=== PATIENT | female | born 1940 | race Caucasian/White ===

== ENCOUNTER → 2018-09-12 09:27 | Outpatient (CLI) | payer MEDICARE, OTHER, SELFPAY ==
[2018-09-12 10:19] LABS: Hemoglobin 14.8 g/dL (12.0-16.0); Mean Corpuscular HGB Conc 34.4 % (30-36); Mean Corpuscular Hemoglobin 30.3 PG (26-34); Mean Corpuscular Volume 88.2 fL (80-100); Platelet Count 275 X10^3/uL (150-400); Red Blood Cell Count 4.88 X10^6/uL (4.0-5.2); Red Cell Distribution Width 13.1 % (11.6-14.8); White Blood Cell Count 5.9 X10^3/uL (4.5-11.0)
== END ==
PROVIDERS: PCP Nurse Practitioner Family; Visit Provider Nurse Practitioner Family
DX: E78.5 Hyperlipidemia, unspecified (principal)
CPT/HCPCS: 36415; 85027

== ENCOUNTER → 2019-01-12 09:37 | Outpatient (CLI) | payer MEDICARE, OTHER, SELFPAY ==
--- NOTE | 2019-01-12 | DI.MG.S_ITS ---
BILATERAL DIGITAL SCREENING MAMMOGRAM 3D/2D WITH CAD POST LUMPECTOMY: 01/12/2019 CLINICAL: Routine screening. Personal history of left breast cancer. Family history of breast cancer. Comparison is made to exams dated: 01/05/2018 mammogram, 12/29/2016 mammogram, and 12/24/2015 mammogram - [facility]. The tissue of both breasts is heterogeneously dense. This may lower the sensitivity of mammography. Current study was also evaluated with a Computer Aided Detection (CAD) system. There are benign post operative findings in the left breast. There are developing multiple calcifications in the right breast superior lateral quadrant middle depth. No other significant masses, calcifications, or other findings are seen in either breast. IMPRESSION: INCOMPLETE: NEEDS ADDITIONAL IMAGING EVALUATION The developing multiple calcifications in the right breast are indeterminate. Further evaluation with right breast spot magnification mammographic views and possible ultrasound is recommended. This exam was interpreted at Station ID: [id number]. NOTE: For mammograms, a report in lay terms will be sent to the patient. Approximately 15% of breast malignancies will not be visualized mammographically. In the management of a palpable breast mass, a negative mammogram must not discourage biopsy of a clinically suspicious lesion. Electronically Signed By: Bee rivas/:01/13/2019 15:41:23 letter sent: Additional Imaging Needed ACR BI-RADS Category 0: Incomplete 3340F
[2019-01-12 10:31] LABS: Alanine Aminotransferase 27 IU/L (9-52); Albumin 4.1 g/dL (3.5-5.0); Albumin Globulin Ratio 1.6 (1.0-2.8); Alkaline Phosphatase 61 U/L (38-126); Aspartate Aminotransferase 20 IU/L (14-36); BUN Creatinine Ratio 27.1 (6-22); Bilirubin Total 0.4 mg/dL (0.2-1.3); Blood Urea Nitrogen 19 mg/dL (7-17); Calcium 8.9 mg/dL (8.4-10.2); Carbon Dioxide 28 mmol/L (22-32); Chloride 102 mmol/L (98-107); Cholesterol 238 mg/dL (140-199); Estimated Glomerular Filt Rate > 60.0 mL/min (>60); Globulin 2.6 g/dL (1.7-4.1); Glucose 95 mg/dL (80-110); HDL Cholesterol 63 mg/dL (40-60); HEMOLYSIS < 15 (0-50); LDL Cholesterol Calculated 156 mg/dL (<100); Sodium 138 mmol/L (137-145); Total Protein 6.7 g/dL (6.3-8.2); Triglycerides 95 mg/dL (35-150)
== END ==
PROVIDERS: Family Provider Nurse Practitioner Family; PCP Nurse Practitioner Family; Visit Provider Nurse Practitioner Family
DX: Z12.31 Encounter for screening mammogram for malignant neoplasm of breast (principal); Z85.3 Personal history of malignant neoplasm of breast; Z80.3 Family history of malignant neoplasm of breast; E78.5 Hyperlipidemia, unspecified
CPT/HCPCS: 36415; 77063; 77067; 80053; 80061

== ENCOUNTER → 2019-02-02 13:54 | Outpatient (CLI) | payer MEDICARE, OTHER, SELFPAY ==
--- NOTE | 2019-02-02 | DI.MG.S_ITS ---
UNILATERAL RIGHT DIGITAL DIAGNOSTIC MAMMOGRAM 3D/2D WITH ADDITIONAL VIEWS: 02/02/2019 CLINICAL: Additional evaluation requested from prior study. Personal history of breast cancer. Family history of breast cancer. Comparison is made to exams dated: 01/12/2019 mammogram, 01/05/2018 mammogram, 12/29/2016 mammogram, 12/24/2015 mammogram, and 12/17/2014 mammogram - [facility]. The tissue of right breast is heterogeneously dense. This may lower the sensitivity of mammography. There is a 1 cm cluster of grouped fine amorphous punctate calcifications in the right breast at 12 o'clock anterior depth. These are more prominent than on previous studies, and morphology is indeterminate. No other significant masses or calcifications are seen in the breast. IMPRESSION: INCOMPLETE: NEEDS ADDITIONAL IMAGING EVALUATION The cluster of 1 cm grouped fine amorphous punctate calcifications in the right breast are at an intermediate suspicion for malignancy given development over prior studies. A stereotactic biopsy is recommended. Ultrasound was performed to evaluate for any underlying mass. This exam was interpreted at Station ID: [id number]. NOTE: For mammograms, a report in lay terms will be sent to the patient. Approximately 15% of breast malignancies will not be visualized mammographically. In the management of a palpable breast mass, a negative mammogram must not discourage biopsy of a clinically suspicious lesion. Electronically Signed By: Bee rivas/:02/02/2019 18:05:21 ACR BI-RADS Category 0: Incomplete 3340F
--- NOTE | 2019-02-02 | DI.US.S_ITS ---
LIMITED ULTRASOUND OF RIGHT BREAST: 02/02/2019 CLINICAL: Patient returns today to evaluate a density in the right breast. Comparison is made to exams dated: 02/02/2019 mammogram, 01/12/2019 mammogram, 01/05/2018 mammogram, 12/29/2016 mammogram, 12/24/2015 mammogram, and 12/17/2014 mammogram - [facility]. Ultrasound of the right breast 12 o'clock region in area of calcifications was performed. No abnormalities were seen sonographically in the right breast. IMPRESSION: SUSPICIOUS OF MALIGNANCY No sonographic findings of malignancy underlying moderately suspicious right breast calcifications. Stereotactic biopsy of calcifications is recommended given development over time, increased prominence, and patient's personal history of contralateral cancer. Findings and recommendations were discussed with the patient by telephone. This exam was interpreted at Station ID: [id number]. Electronically Signed By: Bee rivas/:02/02/2019 18:08:51 letter sent: Biopsy Required Ultrasound BI-RADS: 4b Suspicious abnormality - intermediate suspicion of malignancy
== END ==
PROVIDERS: Family Provider Nurse Practitioner Family; PCP Nurse Practitioner Family; Visit Provider Nurse Practitioner Family
DX: R92.1 Mammographic calcification found on diagnostic imaging of breast (principal); Z85.3 Personal history of malignant neoplasm of breast; Z80.3 Family history of malignant neoplasm of breast
CPT/HCPCS: 76642; 77065; G0279

== ENCOUNTER → 2019-12-11 07:58 | Outpatient (CLI) | payer MEDICARE, OTHER, SELFPAY ==
--- NOTE | 2019-12-11 | DI.US.S_ITS ---
LIMITED ULTRASOUND OF LEFT BREAST: 12/11/2019 CLINICAL: Palpable left breast lump. Additional evaluation requested from prior study. Comparison is made to exams dated: 12/11/2019 mammogram, 01/12/2019 mammogram, 01/05/2018 mammogram, 12/29/2016 mammogram, and 12/24/2015 mammogram - [facility]. Color flow ultrasound of the left breast four quadrants was performed. Goode scale images of the real-time examination were reviewed. Targeted ultrasound was performed in the region of the patient's reported focal palpable concern of the superior left breast, including 12:00 position. There is heterogenously echoic extensive scarring of the superior left breast with no internal vascularity on Doppler ultrasound. There is minimal adjacent vascularity on Doppler ultrasound in the superior left breast. There is a 1.5 x 1.1 x 0.9 cm round heterogenously hypoechoic mass with indistinct margin in the left breast at 8:00 position 4 cm from the nipple which demonstrates no vascularity on Doppler ultrasound. These findings appear to correlate with mammography. IMPRESSION: PROBABLY BENIGN Extensive scarring of the superior left breast, with a 1.5 x 1.1 x 0.9 cm round heterogenously hypoechoic avascular mass in the left breast at 8:00 position 4 cm from the nipple which in conjunction with mammographic findings is most suggestive of evolving fat necrosis. A follow-up diagnostic mammogram and targeted left breast ultrasound in 6 months is recommended to demonstrate stability of findings and exclude an underlying recurrent or new malignancy. The patient is advised to monitor her breasts and to return sooner for re-evaluation should she feel anything grow or change. This exam was interpreted at Station ID: [id number]. Electronically Signed By: Terrell Sanchez M.D. ecl/:12/11/2019 10:59:00 letter sent: Followup Recommended Ultrasound BI-RADS: 3 Probably benign
--- NOTE | 2019-12-11 | DI.MG.S_ITS ---
BILATERAL DIGITAL DIAGNOSTIC MAMMOGRAM 3D/2D POST LUMPECTOMY: 12/11/2019 CLINICAL: History of left breast cancer in 1998. Now having new thickening and hardening of the left breast. History of stereotactic biopsy of the right breast which was reportedly biopsied as benign per patient. Comparison is made to exams dated: 02/02/2019 mammogram, 01/12/2019 mammogram, and 01/05/2018 mammogram - [facility]. The tissue of both breasts is heterogeneously dense. This may lower the sensitivity of mammography. There is a triangular marker overlying the superior left breast at the site of patient's focal palpable concern (described as new thickening and hardening of the left breast), adjacent a linear scar marker overlying the superior left breast. There are postsurgical changes and extensive scarring within the superior left breast. There is a focal asymmetry of the lateral right breast at posterior depth seen on the RCC view that is less prominent and more consistent with dense fibroglandular tissues on spot compression views. There is a biopsy clip in the superior lateral right breast. No other significant masses, calcifications, or other findings are seen in either breast. IMPRESSION: INCOMPLETE: NEEDS ADDITIONAL IMAGING EVALUATION 1) There is a triangular marker overlying the superior left breast at the site of patient's focal palpable concern (described as new thickening and hardening of the left breast), adjacent a linear scar marker overlying the superior left breast. There are postsurgical changes and extensive scarring within the superior left breast. A targeted ultrasound is recommended for further evaluation. 2) There is a focal asymmetry of the lateral right breast at posterior depth seen on the RCC view that is less prominent and more consistent with dense fibroglandular tissues on spot compression views. A targeted ultrasound is recommended for further evaluation. This exam was interpreted at Station ID: [id number]. NOTE: For mammograms, a report in lay terms will be sent to the patient. Approximately 15% of breast malignancies will not be visualized mammographically. In the management of a palpable breast mass, a negative mammogram must not discourage biopsy of a clinically suspicious lesion. Electronically Signed By: Terrell Sanchez M.D. ecl/:12/11/2019 10:23:51 ACR BI-RADS Category 0: Incomplete 3340F
--- NOTE | 2019-12-11 | DI.US.S_ITS ---
LIMITED ULTRASOUND OF RIGHT BREAST AND AXILLA: 12/11/2019 CLINICAL: Additional evaluation requested from prior study. Comparison is made to exams dated: 12/11/2019 mammogram, 02/02/2019 ultrasound, 02/02/2019 mammogram, 01/12/2019 mammogram, 01/05/2018 mammogram, and 12/29/2016 mammogram - [facility]. Color flow ultrasound of the right breast 7-11 o'clock, and axilla regions was performed. Goode scale images of the real-time examination were reviewed. There is a 1.3 x 0.9 x 0.7 cm irregular hypoechoic mass with indistinct and angular margins in the right breast at 10:00 position 3-4 cm from the nipple. This demonstrates internal vascularity on Doppler ultrasound. This appears to correlate with the asymmetry of the lateral right breast seen on comparison diagnostic mammography. Targeted ultrasound of the right axilla demonstrates no ultrasound evidence of right axillary lymphadenopathy. IMPRESSION: SUSPICIOUS OF MALIGNANCY 1) 1.3 x 0.9 x 0.7 cm irregular hypoechoic mass with indistinct and angular margins in the right breast at 10:00 position 3-4 cm from the nipple. This is suspicious for possible malignancy and an ultrasound guided biopsy is recommended. 2) No ultrasound evidence of right axillary lymphadenopathy. These results and recommendations were discussed with the patient at the time of the exam by the [facility] Radiologist Dr. Michel Munoz in person. This exam was interpreted at Station ID: [id number]. Electronically Signed By: Terrell Sanchez M.D. ecl/:12/11/2019 11:09:44 letter sent: Biopsy Required Ultrasound BI-RADS: 4 Suspicious for malignancy
== END ==
PROVIDERS: PCP Internal Medicine; Visit Provider Internal Medicine
DX: R92.8 Other abnormal and inconclusive findings on diagnostic imaging of breast (principal); N63.14 Unspecified lump in the right breast, lower inner quadrant; N63.11 Unspecified lump in the right breast, upper outer quadrant; L90.5 Scar conditions and fibrosis of skin; Z85.3 Personal history of malignant neoplasm of breast
CPT/HCPCS: 76642; 77066; G0279

== ENCOUNTER → 2020-04-19 08:37 | Outpatient (CLI) | payer MEDICARE, OTHER, SELFPAY ==
[2020-04-19 11:07] LABS: Alanine Aminotransferase 16 IU/L (<35); Albumin 3.9 g/dL (3.5-5.0); Albumin Globulin Ratio 1.3 (1.0-2.8); Alkaline Phosphatase 61 U/L (38-126); Aspartate Aminotransferase 23 IU/L (14-36); BUN Creatinine Ratio 25.3 (6-22); Bilirubin Total 0.5 mg/dL (0.2-1.3); Blood Urea Nitrogen 20 mg/dL (7-17); Calcium 9.2 mg/dL (8.4-10.2); Carbon Dioxide 25 mmol/L (22-32); Chloride 106 mmol/L (98-107); Cholesterol 265 mg/dL (140-199); Estimated Glomerular Filt Rate > 60.0 mL/min (>60); Glucose 102 mg/dL (80-110); HDL Cholesterol 63 mg/dL (40-60); HEMOLYSIS < 15 (0-50); LDL Cholesterol Calculated 188 mg/dL (<100); Potassium 4.3 mmol/L (3.4-5.1); Sodium 138 mmol/L (137-145); Total Protein 6.9 g/dL (6.3-8.2); Triglycerides 71 mg/dL (35-150)
== END ==
PROVIDERS: PCP Internal Medicine; Referring Provider Internal Medicine; Visit Provider Internal Medicine
DX: E78.5 Hyperlipidemia, unspecified (principal)
CPT/HCPCS: 36415; 80053; 80061

== ENCOUNTER → 2020-04-24 10:37 | Outpatient (CLI) | payer MEDICARE, OTHER, SELFPAY ==
--- NOTE | 2020-04-24 | DI.US.S_ITS ---
PROCEDURE: US ABDOMEN COMPLETE INDICATIONS: 14 mm LIVER MASS FOUND ON BREAST MRI TECHNIQUE: Real-time scanning was performed of the abdominal and retroperitoneal organs, with image documentation. COMPARISON: Outside Facility, RG, MRI BREAST BILATERAL W / WO CONTRAST, 04/03/2019, 10:46. FINDINGS: Liver: Liver is normal in size and homogeneous in echotexture. A hepatic lesion is not seen by ultrasound. Gallbladder: The gallbladder appears normal. Biliary ducts: Intrahepatic bile ducts are non-dilated. Extrahepatic bile duct caliber measures 4.0 mm. Normal is 6-7 mm or less in diameter, or 10 mm or less post-cholecystectomy. Pancreas: Visualized portions of the pancreas are sonographically normal. Spleen: Spleen is normal in size and homogeneous in echotexture. Kidneys: Kidneys are normal in size and echotexture. Right kidney measures 8.4 cm long; left kidney measures 10.2 cm long. No hydronephrosis or nephrolithiasis. No solid masses. Aorta: Visualized aorta is normal in caliber at less than 3 cm. Iliacs: Proximal common iliac arteries are normal in caliber at less than 2.5 cm. IVC: Intrahepatic inferior vena cava is patent. Miscellaneous: No free abdominal fluid. IMPRESSION: No mass lesion seen within the liver parenchyma. Note is made of asymmetric size of the kidneys, 8.4 cm on the right and 10.2 cm on the left. Note: The clinical history provided indicates that a 14 mm mass was found in the liver on breast MRI. The available MR for review is dated 04/03/19, [facility] procedure. If this does not represent the most recent available MRI that examination should be obtained and an addendum report can be generated for this study upon review of the more recent MR examination. The report from March of 2019 mentions no lesion identified in the liver. Dictated by: Michel Munoz M.D. on 04/24/2020 at 13:43 Approved by: Michel Munoz M.D. on 04/24/2020 at 13:52
--- NOTE | 2020-04-24 | DI.US.S_ITS ---
PROCEDURE: US PELVIC COMPLETE INDICATIONS: LIVER MASS FOUND ON BREAST MRI TECHNIQUE: Real-time scanning was performed of the pelvic organs, with image documentation. Additional endovaginal scanning was not performed COMPARISON: [facility], , PELVIC COMPLETE, 06/27/2009, 12:23. [facility], , PELVIC COMPLETE, 01/26/2013, 14:39. FINDINGS: Transabdominal scanning: Limited scanning through the kidneys shows no hydronephrosis. No pathologic free abdominal or pelvic fluid. Endovaginal scanning: Uterus: Uterus is normal in size at 3.4 x 2.4 x 3 .0 cm. The endometrium measures 1.2 mm in combined thickness. Ovaries: Ovaries not identified. No adnexal masses seen. IMPRESSION: Ovaries not identified and can't be evaluated. Exam otherwise is normal. Dictated by: [facility] Interpreted: Michel Munoz MD on 04/24/2020 at 13:59 Approved by: Michel Munoz M.D. on 04/30/2020 at 11:23
== END ==
PROVIDERS: PCP Internal Medicine; Referring Provider Internal Medicine; Visit Provider Internal Medicine
DX: K76.89 Other specified diseases of liver (principal)
CPT/HCPCS: 76700; 76856

== ENCOUNTER → 2020-05-06 10:56 | Outpatient (CLI) | payer MEDICARE, OTHER, SELFPAY ==
--- NOTE | 2020-05-06 | DI.MRI.S_ITS ---
PROCEDURE: MR ABDOMEN WO/W CON INDICATIONS: Suspected liver lesion on prior breast MRI. TECHNIQUE: Coronal HASTE, axial 2D FLASH in- and [id number]; axial breath-hold T2 FSE. Dynamic axial VIBE during the administration of contrast; post-contrast coronal VIBE or 2D FLASH with fat saturation from the hepatic dome to the iliac crests. Optional diffusion weighted imaging and ADC may be performed. COMPARISON: [facility], US, US ABDOMEN COMPLETE, 04/24/2020, 11:03. Outside Facility, RG, MRI BREAST BILATERAL W / WO CONTRAST, 02/07/2020, 14:27. FINDINGS: Image quality: Excellent. Lung bases: No basal pleural effusions. Heart size is normal. Solid organs: The liver is smooth in contour and normal in size. No discrete hepatic mass is identified. No suspicious enhancement or abnormal areas of washout. The gallbladder is normal in appearance without gallstones. Biliary system is non dilated. Pancreas is normal in morphology. Spleen is normal in size and enhancement. No adrenal nodules. Both kidneys demonstrate no hydronephrosis. Nodes and vessels: No retroperitoneal or mesenteric adenopathy by size criteria. Aorta and inferior vena cava are normal in size. Bowel and peritoneum: Visualized bowel loops are normal in caliber. No intra-abdominal free fluid. Bones and soft tissues: No ventral hernias. Bone marrow is normal in overall signal. IMPRESSION: 1. No discrete hepatic mass or abnormal enhancement. Findings on prior MRI were likely artifactual. Dictated by: Brenden Sarabia M.D. on 05/06/2020 at 15:18 Approved by: Brenden Sarabia M.D. on 05/06/2020 at 15:23
== END ==
PROVIDERS: PCP Internal Medicine; Referring Provider Internal Medicine; Visit Provider Internal Medicine
DX: K76.89 Other specified diseases of liver (principal)
CPT/HCPCS: 74183

== ENCOUNTER → 2020-09-20 15:24 | Outpatient (CLI) | payer MEDICARE, OTHER, SELFPAY | PROVIDERS: PCP Internal Medicine; Visit Provider Specialist | DX: N39.41 Urge incontinence (principal) | CPT/HCPCS: 87077; 87086; 87186 ==

== ENCOUNTER → 2020-12-04 11:59 | Outpatient (CLI) | payer MEDICARE, OTHER, SELFPAY ==
--- NOTE | 2020-12-04 | DI.MRI.S_ITS ---
BREAST MRI OF BOTH BREASTS: 12/04/2020 CLINICAL: Breast cancer. Left breast pain, mas,right breast hematoma. TECHNIQUE: The patient was placed prone in a dedicated breast imaging coil. Precontrast axial STIR and 3D FLASH without fat saturation sequences were obtained. Both before and after bolus injection of contrast, sequential 1-minute axial 3D FLASH with fat saturation sequences for 3 time points, with subtraction images and maximum intensity projections (MIP's) generated. Delayed sagittal FLASH images with fat saturation were also obtained. Computer-aided detection, including computer algorithm analysis of MRI image data for lesion detection and characterization, pharmacokinetic analysis, with further physician review for interpretation, was performed. COMPARISON: Outside Facility, , MRI BREAST BILATERAL W / WO CONTRAST, 04/03/2019, 10:46. [facility], BREAST LT LIMITED, 12/11/2019, 10:27. Outside Facility, , MRI BREAST BILATERAL W / WO CONTRAST, 02/07/2020, 14:27. FINDINGS: Image quality: Excellent. There is [id number] right breast background parenchymal enhancement and minimal left breast background parenchymal enhancement. Right breast: There are no suspicious enhancing masses or non masslike enhancement. Left breast: Decreased left breast size compared to the right. Blooming artifact from postsurgical changes is present in the 12:00 o'clock region of the left breast at the level of the nipple. There is an enhancing ovoid mass with irregular margins in the posterior left breast along the chest wall behind the nipple chest to the 9 o'clock position measuring 1.5 x 0.6 x 1.8 cm. Kinetic analysis demonstrates mainly medium initial enhancement with persistent enhancement kinetics over time, a benign pattern. This finding has been present on prior MRI studies and on the previous ultrasound, correlated to an area of round hypoechogenicity thought to reflect fat necrosis. A smaller enhancing focus in the left breast at a middle depth behind the nipple just to the 3 o'clock position measures 3 x 5 x 2 mm and also demonstrates a benign enhancement pattern. No areas of suspicious non masslike enhancement. No new findings to correlate to the patient's complaints of palpable abnormalities, although the exact location of patient complaint was not indicated on this exam. Miscellaneous: No suspicious enhancement in the heart, anterior chest wall, or visible portions of the liver. No visible axillary or internal mammary chain adenopathy. IMPRESSION: INCOMPLETE: NEEDS ADDITIONAL IMAGING EVALUATION 1. A 1.8 cm enhancing mass in the posterior left breast at the 9 o'clock position has been present on prior exams but has become more prominent over the prior MRI studies. Follow-up ultrasound is recommended to compare the finding in similar modalities. While a differential diagnosis includes postsurgical changes/ fat necrosis or fibrosis, recurrent neoplasm is possible, though less likely given benign enhancement pattern on kinetic analysis. An indication of where the patient feels palpable abnormality is also suggested during diagnostic ultrasound examination. 2. There is a 5 mm enhancing focus within the middle left breast at the 3 o'clock position with a benign enhancement pattern, probably fibrosis or fat necrosis. Attention to this area on diagnostic ultrasound is recommended. 3. No suspicious findings in the right breast. 4. No adenopathy visible. BIRADS 0, incomplete, additional imaging is recommended. COMMENT: The imaging literature indicates that a negative contrast breast MRI examination has a high sensitivity and a moderate specificity for detecting and excluding invasive carcinomas to a detection threshold of 3-5 mm; nonetheless, appropriate clinical and mammographic follow-up are recommended. MRI is not sensitive for detecting DCIS (ductal carcinoma in situ) and may not detect large invasive neoplasms that show only minimal enhancement such as mucinous carcinoma. If there are suspicious calcifications or clinically worrisome palpable masses, then biopsy should still be considered. Invasive neoplasms can be hidden by co-existent and benign enhancement caused by mastitis, hormone therapy effects, radiation therapy, , and recent biopsy or surgery. False positive examinations can occur in a number of circumstances, including breasts that have recently been subject to invasive procedures and those that contain atypical ductal hyperplasia, hormonally stimulated glandular tissue, fat necrosis, or radial scars. This exam was interpreted at Station ID: [id number]. Electronically Signed By: Bee rivas/:12/04/2020 16:58:02 letter sent: Additional Imaging Needed ACR BI-RADS Category 0: Incomplete 3340F
== END ==
PROVIDERS: PCP Internal Medicine; Referring Provider Internal Medicine; Visit Provider Internal Medicine
DX: C50.919 Malignant neoplasm of unspecified site of unspecified female breast (principal); N64.4 Mastodynia; N63.20 Unspecified lump in the left breast, unspecified quadrant
CPT/HCPCS: 77049; A9579

== ENCOUNTER → 2020-12-10 10:39 | Outpatient (CLI) | payer MEDICARE, OTHER, SELFPAY ==
--- NOTE | 2020-12-10 | DI.US.S_ITS ---
ULTRASOUND OF LEFT BREAST: 12/10/2020 CLINICAL: Abnormal left breast on recent MRI. Comparison is made to exams dated: 12/04/2020 breast MRI, 12/11/2019 mammogram, 01/12/2019 mammogram, 01/05/2018 mammogram, and 12/11/2019 ultrasound - [facility]. Color flow ultrasound of the left breast was performed. Goode scale images of the real-time examination were reviewed. There is a 1.7 cm x 1.1 cm x 0.6 cm oval mass with an indistinct margin in the left breast at 8 o'clock middle depth 4 cm from the nipple. This oval mass is hyperechoic and heterogeneously echogenic. This abnormality is not significantly changed and correlates with breast MRI findings. Color flow imaging demonstrates that there is no increase in vascularity. There also is a benign post-surgical scar in the left breast at 12 o'clock middle depth. This correlates as palpated. IMPRESSION: PROBABLY BENIGN The 1.7 cm x 1.1 cm x 0.6 cm oval mass in the left breast at 8 o'clock middle depth resembles fat necrosis and is probably benign. The post-surgical scar in the left breast at 12 o'clock middle depth is benign. A follow-up left ultrasound in 6 months is recommended to demonstrate stability. This exam was interpreted at Station ID: [id number]. SUMMARY: 1) Left breast diagnostic ultrasound is recommended for follow-up of the probably benign lesion in the left breast at the 8 o'clock position. 2) Patient is currently due for bilateral screening mammograms. Discussed with patient that MRI is a complimentary exam not an adequate substitute for screening mammography. 3) The palpable abnormality in the left breast corresponds to benign post-surgical scarring. Continued attention to this area on future mammograms is recommended. Electronically Signed By: Sanya shen/denisa:12/10/2020 13:34:20 letter sent: Followup Recommended Ultrasound BI-RADS: 3 Probably benign
== END ==
PROVIDERS: PCP Internal Medicine; Referring Provider Internal Medicine; Visit Provider Internal Medicine
DX: R92.8 Other abnormal and inconclusive findings on diagnostic imaging of breast (principal); N63.24 Unspecified lump in the left breast, lower inner quadrant; L90.5 Scar conditions and fibrosis of skin
CPT/HCPCS: 76642

== ENCOUNTER → 2020-12-25 14:54 | Outpatient (CLI) | payer MEDICARE, OTHER, SELFPAY ==
[2020-12-25] MEDS: COVID-19 VACC #1, MRNA(MOD) 100 MCG/0.5 ML VIAL IM (14:57)
== END ==
PROVIDERS: PCP Internal Medicine; Visit Provider Internal Medicine
DX: Z23 Encounter for immunization (principal)
CPT/HCPCS: 0011A; 91301

== ENCOUNTER → 2021-01-23 14:26 | Outpatient (CLI) | payer MEDICARE, OTHER, SELFPAY ==
[2021-01-23] MEDS: COVID-19 VACC #2, MRNA(MOD) 100 MCG/0.5 ML VIAL IM (14:34)
== END ==
PROVIDERS: PCP Internal Medicine; Visit Provider Internal Medicine
DX: Z23 Encounter for immunization (principal)
CPT/HCPCS: 0012A; 91301

== ENCOUNTER → 2021-06-16 12:36 | Outpatient (CLI) | payer MEDICARE, OTHER, SELFPAY ==
--- NOTE | 2021-06-16 | DI.US.S_ITS ---
LIMITED ULTRASOUND OF LEFT BREAST: 06/16/2021 CLINICAL: 6 month follow up for asymmetry in the left breast and left breast lump. Comparison is made to exams dated: 12/10/2020 ultrasound, 12/04/2020 breast MRI, 12/11/2019 mammogram, and 12/11/2019 ultrasound - [facility]. Color flow ultrasound of the left breast was performed. Goode scale images of the real-time examination were reviewed. There is a 1.7 cm x 1.2 cm x 0.8 cm oval mass with an indistinct margin in the left breast at 8 o'clock middle depth 4 cm from the nipple. This oval mass is hyperechoic and heterogeneously echogenic. This abnormality is not significantly changed and correlates with breast MRI findings. Color flow imaging demonstrates that there is no increase in vascularity. There also is a stable benign post-surgical scar in the left breast at 12 o'clock middle depth. This correlates as palpated. IMPRESSION: PROBABLY BENIGN The 1.7 cm x 1.2 cm x 0.8 cm oval mass in the left breast at 8 o'clock middle depth resembles fat necrosis and is probably benign. The stable post-surgical scar in the left breast at 12 o'clock middle depth is benign. A follow-up left ultrasound in 6 months is recommended to demonstrate stability. Additionally, patient is due for bilateral mammograms, which should be performed at the earliest convenience. This exam was interpreted at Station ID: [id number]. Electronically Signed By: Sanya Finley M.D. ar/:06/16/2021 14:30:38 letter sent: Followup Recommended Ultrasound BI-RADS: 3 Probably benign
== END ==
PROVIDERS: PCP Internal Medicine; Referring Provider Internal Medicine; Visit Provider Internal Medicine
DX: R92.8 Other abnormal and inconclusive findings on diagnostic imaging of breast (principal); N63.24 Unspecified lump in the left breast, lower inner quadrant
CPT/HCPCS: 76642

== ENCOUNTER → 2021-07-29 12:32 | Outpatient (CLI) | payer MEDICARE, OTHER, SELFPAY ==
--- NOTE | 2021-07-29 | DI.MRI.S_ITS ---
PROCEDURE: MR HEAD/BRAIN WO/W CON INDICATIONS: Abnormal weight loss TECHNIQUE: Noncontrast axial T1 spin echo, axial T2 fast spin echo, sagittal and axial FLAIR, coronal T2 fast spin echo, axial gradient echo, axial diffusion and ADC through the brain. After the administration of contrast, axial and coronal T1 spin echo with fat saturation through the brain. COMPARISON: [facility], MR, BRAIN (IAC) W AND WO CONTRAST, 06/19/2011, 13:41. [facility], CT, CT CHEST ABD PEL W CON, 07/29/2021, 14:14. FINDINGS: Image quality: Excellent. CSF spaces: Basal cisterns are patent. No extra-axial fluid collections. Ventricles are normal in size and shape. Brain: No midline shift. No intracranial bleeds or masses. No abnormal intracranial enhancement. There is cerebral volume loss for age. There is periventricular white matter chronic small vessel ischemic change. The brainstem appears normal. Diffusion-weighted images demonstrate no acute ischemic insults. No chronic ischemic insults. Normal intravascular flow voids are present. Skull and face: Calvarial marrow is normal in signal. Orbits appear normal. Note is made of bilateral lens replacements. Sinuses: Sinuses and mastoids appear clear. IMPRESSION: Normal intracranial study for age, without findings of masses or abnormal enhancement to suggest intracranial metastatic disease. Note is made of age-appropriate brain parenchymal volume loss and chronic small vessel ischemic changes. No findings of acute or subacute infarction can be seen. Dictated by: Bala Miranda M.D. on 07/29/2021 at 14:39 Approved by: Bala Miranad M.D. on 07/29/2021 at 14:42
--- NOTE | 2021-07-29 | DI.CT.S_ITS ---
PROCEDURE: CT CHEST ABD PEL W CON INDICATIONS: Abnormal weight loss TECHNIQUE: After the administration of oral and intravenous contrast, axial sections acquired from the supraclavicular neck to the pubic symphysis. Coronal and sagittal reformats were performed. For radiation dose reduction, the following was used: automated exposure control, adjustment of mA and/or kV according to patient size. COMPARISON: None. FINDINGS: Image quality: Excellent. CHEST: Lungs and pleura: No acute air space opacities. No pleural effusions or pneumothorax. Central and peripheral airways are patent and normal in caliber. Mediastinum: Heart size is normal. No pericardial effusion. No mediastinal adenopathy by size criteria. The aorta has atherosclerosis with no aneurysmal dilatation. Esophagus is normal in caliber. No hiatal hernia. Chest wall: No axillary or supraclavicular adenopathy by size criteria. Thyroid gland is normal . ABDOMEN: Solid organs: Liver: The liver has no mass or intrahepatic biliary ductal dilatation. The portal vein and hepatic veins are patent. Biliary: The gallbladder is contracted. There is no wall thickening or pericholecystic fluid. Pancreas: The pancreas has no mass or ductal dilatation. There is no surrounding inflammation. Spleen: Normal size. There are no masses. Adrenals: No hypertrophy or nodules. Kidneys: No obstructive calculus or hydronephrosis. No solid mass. No cystic mass. Bowel: There is a small hiatal hernia. The distal esophagus and stomach are otherwise normal. The small bowel has a normal caliber and appearance. The terminal ileum is normal. The large bowel has increased stool throughout consistent with constipation. The appendix is not definitively visualized; however there are no secondary findings to suggest acute appendicitis. No free fluid or air. Nodes and vessels: No retroperitoneal or mesenteric adenopathy by size criteria. The aorta has atherosclerosis with no aneurysmal dilatation. Abdominal wall: No abdominal wall mass or hernia. PELVIS: Genitourinary: The bladder has no wall thickening or mass. A pessary is seen. Abdominal wall: No inguinal hernias or adenopathy. BONES: Degenerative changes with no focal abnormality. No vertebral body compression fractures. IMPRESSION: 1. No acute abdominal or pelvic abnormality. 2. Constipation. Dictated by: Jeremiah Ghotra M.D. on 07/29/2021 at 17:54 Approved by: Jeremiah Ghotra M.D. on 07/29/2021 at 18:33
== END ==
PROVIDERS: PCP Internal Medicine; Referring Provider Internal Medicine; Visit Provider Internal Medicine
DX: G25.3 Myoclonus (principal); R63.4 Abnormal weight loss; K59.00 Constipation, unspecified; R45.1 Restlessness and agitation; I70.0 Atherosclerosis of aorta; K44.9 Diaphragmatic hernia without obstruction or gangrene; Z85.3 Personal history of malignant neoplasm of breast
CPT/HCPCS: 70553; 71260; 74177; A9579; Q9967

== ENCOUNTER → 2021-09-26 19:11 | Outpatient (ROUT) | payer MEDICARE, OTHER, SELFPAY ==
[2021-09-26 19:56] LABS: Appearance Urine UA SL CLOUDY; Bilirubin Urine UA NEGATIVE (NEGATIVE); Color Urine UA YELLOW; Glucose Urine UA NEGATIVE (Negative); Ketones Urine UA NEGATIVE (NEGATIVE); Leukocyte Esterase Urine UA TRACE (NEGATIVE); Nitrite Urine UA POSITIVE (Negative); Occult Blood Urine UA NEGATIVE (Negative); Protein Urine UA NEGATIVE (Negative); Urobilinogen Urine UA 0.2 E.U./dL (0.2)
[2021-09-26 19:57] LABS: Bacteria Urine Many (>30); Culture Indicated Urine Specimen Cultured; RBC Urine 0-1/HPF (0-5/HPF); WBC Urine 5-10/HPF (0-5/HPF)
== END ==
PROVIDERS: PCP Internal Medicine; Visit Provider Internal Medicine
DX: R35.0 Frequency of micturition (principal)
CPT/HCPCS: 81001; 87077; 87086; 87186

== ENCOUNTER → 2021-12-18 13:29 | Outpatient (CLI) | payer MEDICARE, OTHER, SELFPAY ==
--- NOTE | 2021-12-18 | DI.US.S_ITS ---
LIMITED ULTRASOUND OF LEFT BREAST: 12/18/2021 CLINICAL: 6 month follow-up of mass. Comparison is made to exams dated: 06/16/2021 ultrasound, 12/10/2020 ultrasound, 12/11/2019 mammogram, 12/18/2021 mammogram, 12/11/2019 ultrasound, and 01/12/2019 mammogram - [facility]. Color flow ultrasound of the left breast 8 o'clock region was performed. Goode scale images of the real-time examination were reviewed. There is a stable benign 1.7 cm x 1.2 cm x 0.8 cm oval mass with an indistinct margin in the left breast at 8 o'clock middle depth 4 cm from the nipple. This oval mass is hyperechoic and heterogeneously echogenic. Color flow imaging demonstrates that there is no increase in vascularity. This lesion has not significantly changed when compared to multiple prior exams dating back to 12/11/2019, and is therefore considered benign. IMPRESSION: BENIGN There is no sonographic evidence of malignancy. The stable 1.7 cm x 1.2 cm x 0.8 cm oval mass in the left breast resembles fat necrosis and is benign. Return to annual mammogram screening schedule is recommended. This exam was interpreted at Station ID: [id number]. Electronically Signed By: Sanya sehn/denisa:12/18/2021 15:07:18 letter sent: Normal Exam Ultrasound BI-RADS: 2 Benign
--- NOTE | 2021-12-18 | DI.MG.S_ITS ---
BILATERAL DIGITAL DIAGNOSTIC MAMMOGRAM 3D/2D SHORT-TERM FOLLOW-UP POST LUMPECTOMY: 12/18/2021 CLINICAL: Short term follow up of the left breast, due for bilateral imaging. Hx of breast cancer. Comparison is made to exams dated: 06/16/2021 ultrasound, 12/04/2020 breast MRI, 12/11/2019 mammogram, 12/11/2019 ultrasound, 02/02/2019 mammogram, and 01/12/2019 mammogram - [facility]. The tissue of both breasts is heterogeneously dense. This may lower the sensitivity of mammography. The left breast has post-operative findings. There is a biopsy clip in the right breast. No significant masses, calcifications, or other findings are seen in either breast. IMPRESSION: INCOMPLETE: NEEDS ADDITIONAL IMAGING EVALUATION Targeted ultrasound is recommended for follow-up of prior left breast findings, and will be performed immediately following this exam. This exam was interpreted at Station ID: [id number]. NOTE: For mammograms, a report in lay terms will be sent to the patient. Approximately 15% of breast malignancies will not be visualized mammographically. In the management of a palpable breast mass, a negative mammogram must not discourage biopsy of a clinically suspicious lesion. Electronically Signed By: Sanya shen/denisa:12/18/2021 15:05:04 ACR BI-RADS Category 0: Incomplete [id number]
== END ==
PROVIDERS: PCP Internal Medicine; Referring Provider Internal Medicine; Visit Provider Internal Medicine
DX: R92.8 Other abnormal and inconclusive findings on diagnostic imaging of breast (principal); N63.24 Unspecified lump in the left breast, lower inner quadrant
CPT/HCPCS: 76642; 77066; G0279

== ENCOUNTER → 2022-12-02 15:53 | Outpatient (CLI) | payer MEDICARE, OTHER, SELFPAY | PROVIDERS: PCP Internal Medicine; Visit Provider Obstetrics & Gynecology | DX: R31.9 Hematuria, unspecified (principal) | CPT/HCPCS: 87077; 87086; 87186 ==

== ENCOUNTER → 2022-12-23 12:32 | Outpatient (CLI) | payer MEDICARE, OTHER, SELFPAY ==
--- NOTE | 2022-12-23 | DI.MG.S_ITS ---
BILATERAL DIGITAL SCREENING MAMMOGRAM 3D/2D WITH CAD POST LUMPECTOMY: 12/23/2022 CLINICAL: Routine screening. Personal history of left breast cancer. Family history of breast cancer. Comparison is made to exams dated: 12/18/2021 mammogram, 12/11/2019 mammogram, 01/12/2019 mammogram, and 01/05/2018 mammogram - [facility]. Both breasts are heterogeneously dense, which may obscure small masses (category c / 51-75% glandular tissue). Current study was also evaluated with a Computer Aided Detection (CAD) system. There are benign vascular calcifications in the left breast. There also is a biopsy clip in the right breast. Additionally, there are benign post operative findings in the left breast. No significant masses, calcifications, or other findings are seen in either breast. There has been no significant interval change. IMPRESSION: BENIGN There is no mammographic evidence of malignancy. A 1 year screening mammogram is recommended. This exam was interpreted at Station ID: [id number]. NOTE: For mammograms, a report in lay terms will be sent to the patient. Approximately 15% of breast malignancies will not be visualized mammographically. In the management of a palpable breast mass, a negative mammogram must not discourage biopsy of a clinically suspicious lesion. Electronically Signed By: Fadi swann/denisa:12/23/2022 13:21:14 letter sent: Normal Exam ACR BI-RADS Category 2: Benign Finding(s) 3342F
[2022-12-23 14:14] LABS: Appearance Urine UA SL CLOUDY; Bilirubin Urine UA NEGATIVE (NEGATIVE); Color Urine UA YELLOW; Glucose Urine UA NEGATIVE (Negative); Ketones Urine UA NEGATIVE (NEGATIVE); Leukocyte Esterase Urine UA 1+ (NEGATIVE); Nitrite Urine UA POSITIVE (Negative); Occult Blood Urine UA NEGATIVE (Negative); Protein Urine UA NEGATIVE (Negative); Specific Gravity Urine UA 1.025 (1.000-1.035); Urobilinogen Urine UA 0.2 E.U./dL (0.2)
[2022-12-23 14:31] LABS: Bacteria Urine Many (>30); Culture Indicated Urine Specimen Cultured; RBC Urine None Seen (0-5/HPF); Squamous Epithelial Cell Urine 0-1 /HPF (0-5/HPF); WBC Urine 10-30/HPF (0-5/HPF)
== END ==
PROVIDERS: Obstetrics & Gynecology; PCP Internal Medicine; Referring Provider Internal Medicine; Visit Provider Internal Medicine
DX: Z12.31 Encounter for screening mammogram for malignant neoplasm of breast (principal); Z85.3 Personal history of malignant neoplasm of breast; Z80.3 Family history of malignant neoplasm of breast; N39.41 Urge incontinence
CPT/HCPCS: 77063; 77067; 81001; 87077; 87086; 87186

== ENCOUNTER → 2023-01-18 13:08 | Outpatient (CLI) | payer MEDICARE, OTHER, SELFPAY ==
--- NOTE | 2023-01-18 | DI.US.S_ITS ---
PROCEDURE: US ABDOMEN COMPLETE INDICATIONS: LEFT LOWER QUADRANT ABDOMINAL SWEELING, MASS/LUMP TECHNIQUE: Real-time scanning was performed of the abdominal and retroperitoneal organs, with image documentation. COMPARISON: [facility], , US ABDOMEN COMPLETE, 04/24/2020, 11:03. FINDINGS: Liver: Liver is normal in size and homogeneous in echotexture. Gallbladder: No stones, wall thickening, or sonographic Woo sign Biliary ducts: Intrahepatic bile ducts are non-dilated. Extrahepatic bile duct caliber measures 3 mm. Normal is 6-7 mm or less in diameter, or 10 mm or less post-cholecystectomy. Pancreas: Visualized portions of the pancreas are sonographically normal. Spleen: Spleen is normal in size and homogeneous in echotexture. Kidneys: Right kidney measures 8.4 cm long; left kidney measures 9.8 cm long. No hydronephrosis or nephrolithiasis. No solid masses. Aorta: Visualized aorta is normal in caliber at less than 3 cm. Iliacs: Proximal common iliac arteries are normal in caliber at less than 2.5 cm. IVC: Intrahepatic inferior vena cava is patent. Miscellaneous: No free abdominal fluid. No sonographic abnormality visualized in the left lower quadrant of the abdomen. IMPRESSION: No sonographic abnormality identified within the left lower quadrant of the abdomen. CT could be obtained for further evaluation if clinically indicated. Dictated by: Sanya Regalado M.D. on 01/18/2023 at 16:02 Approved by: Sanya Regalado M.D. on 01/18/2023 at 16:10
--- NOTE | 2023-01-18 | DI.US.S_ITS ---
PROCEDURE: US PELVIC COMPLETE INDICATIONS: Left lower quadrant abdominal swelling, mass/lump TECHNIQUE: Real-time scanning was performed of the pelvic organs, with image documentation. Additional endovaginal scanning was necessary due to incomplete visualization of the adnexal and endometrial structures by transabdominal scanning. COMPARISON: [facility], , US PELVIC COMPLETE, 04/24/2020, 11:33. FINDINGS: Uterus: Uterus is retroverted and normal in size at 6.6 x 2.5 x 4.2 cm. The myometrium is heterogeneous. The endometrium measures 2.2 mm combined thickness. Anechoic cystic structure within the endometrium, probably a benign cyst. A couple of subserosal uterine fibroids, largest measuring 2.1 cm at the fundus. Ovaries: Not visualized due to overlying bowel gas. Other: No pathologic free abdominal or pelvic fluid. IMPRESSION: 1. No findings to explain the patient's left lower quadrant abdominal swelling or mass/lump. 2. A couple of small subserosal uterine fibroids. We strive to produce accurate, complete, and clear reports of imaging services. To assist us in improving patient care, this report was composed using standard report templates and voice recognition software. Therefore, it may contain abnormal punctuation, insertions and/or omissions. Occasional wrong-word or sound-alike substitutions may occur. Though we review the report and make efforts to correct it, we do recommend that the report be read carefully in proper context to recognize any text inaccuracies. Dictated by: Arsalan Mario M.D. on 01/18/2023 at 15:52 Approved by: Arsalan Mario M.D. on 01/18/2023 at 15:54
== END ==
PROVIDERS: PCP Internal Medicine; Referring Provider Internal Medicine; Visit Provider Internal Medicine
DX: R19.04 Left lower quadrant abdominal swelling, mass and lump (principal); D25.2 Subserosal leiomyoma of uterus
CPT/HCPCS: 76700; 76856

== ENCOUNTER 2023-03-18 07:57 | Day surgery (SDC) | payer MEDICARE, OTHER, SELFPAY ==
[2023-03-17 08:26] VITALS: BMI 23.3
[2023-03-18] VITALS (15 sets, daily range): BP systolic 99–148; BP diastolic 53–82; PULSE 54–73; RESP 12–20; TEMP 35.3–36.6; O2SAT 94–100; BMI 23.2
--- NOTE | 2023-03-18 | PATH_ITS ---
[facility] Accession Number: [id number] No. of containers..01 Tissue . 01 Material submitted: . uterus - UTERUS,CERVIX,BILATERAL FALLOPIAN TUBES AND OVARIES . 01 Diagnosis: Uterus, Cervix, Right and Left Fallopian Tubes and Ovaries, Hysterectomy and Bilateral Salpingo-oophorectomy: Cervix: Nabothian cysts and focal acute and chronic cervicitis. Endometrium: Cystic atrophy. Serosa: Few scattered fibrovascular adhesions. Myometrium: Leiomyomata with hyalinizing fibrosis. Fallopian tubes: No significant pathologic abnormalties. Ovaries: Postmenopausal changes. [facility] 03/22/2023 1612 Local . 01 Electronically signed: . Gege Colin MD, Pathologist NPI- [id number] . 01 Gross description: . The specimen is received in formalin labeled with the patient's name, , and uterus, cervix, bilat fallopian tubes and ovaries, and consists of an intact uterus (57 grams, 7.4 cm SI, 4.3 cm ML, and 3.7 cm AP) with attached cervix (3.7 x 3.5 cm), detached fimbriated fallopian tube and ovary (fallopian tube measures 3.6 x 0.5 cm, and the ovary weighs less than 1 gram and measures 1.4 x 0.7 x 0.4 cm), detached fimbriated fallopian tube (3.0 x 0.7 cm) and detached ovary (3.0 x 1.1 x 0.6 cm and weighing less than 1 gram). The ectocervix is pink-pearce and finely granular with a patulous cervical os measuring 0.6 cm in diameter. The anterior paracervical margins is inked blue while the posterior paracervical margin is inked black. The serosa is pearce and smooth with a small roughened area possibly consistent with adhesion on the anterior surface measuring 1.5 cm in greatest dimension with no additional roughened or hemorrhagic areas identified. The endocervical canal measures 2.3 cm in length and has pearce herringbone mucosa. The endometrial cavity measures 1.7 cm from cornu to cornu and 3.9 cm in length with a hemorrhagic endometrium that averages 0.2 cm thick with no lesions identified. The myometrium is pink-pearce and trabecular measuring up to 1.5 cm in maximum thickness, and is significant for multiple well-circumscribed white whorled nodules located intramurally measuring up to 2.0 cm in greatest dimension with no hemorrhage or necrosis identified. . . The first fallopian tube has congested roughened serosa with multiple cystic structures measuring up to 0.5 cm in greatest dimension filled with cloudy serous fluid. Sectioning reveals an unremarkable stellate lumen. The first ovary has a pearce smooth external surface and sectioning reveals an unremarkable physiologic cut surface with no cysts or lesions identified. The second fallopian tube has pearce smooth serosa with several cystic structures measuring up to 0.7 cm in greatest dimension filled with clear serous fluid. Sectioning reveals an unremarkable stellate lumen. The second ovary has a pearce cerebriform external surface and sectioning reveals an unremarkable physiologic cut surface with no cysts of lesions identified. . [employer] sections are submitted as follows: A1: Anterior cervix. A2: Posterior cervix. A3: Anterior full thickness section. A4: Posterior full thickness section. A5: Serosa. A6: Nodules. A7: First fallopian tube to include one-half of bisected fimbriae and cross-sections. A8: First ovary. A9: Second fallopian tube to include one-half of bisected fimbriae and cross-sections. A10: Second ovary. ([id number]) /MRV 03/19/2023 1317 Local . 01 Pathologist provided ICD-10: N81.6 . 01 CPT . 173622 Specimen Comment: A courtesy copy of this report has been sent to [phone] Performed at: 01 [facility] [address] [place] [address] [address], [place], [place] [id number] MD Brenden Macedo MD Phone: [phone]
[2023-03-18 08:31] LABS: COVID19 -Nasal RAPID Negative (Negative)
[2023-03-18] MEDS: LACTATED RINGERS 1,000 ML 100 ML IV ×2 (08:48→12:20)
[2023-03-18] MEDS: ACETAMINOPHEN IV 1,000 MG/100 ML VIAL 400 MG IV (09:02)
--- NOTE | 2023-03-18 09:47 | PM.PREOP ---
Pre-operative Note COVID-19 Criteria for continued procedure: Non-surgical alternatives not available or appropriate per current SOC Interval Note History & Physical reviewed/Exam performed by Physician: Yes Changes to H&P: No H&P completed within 30 days and has changed as indicated here:: 03/09/23
[2023-03-18] MEDS: CEFAZOLIN 2 GM/100 ML PREMIX 100 ML IV (10:10)
--- NOTE | 2023-03-18 10:34 | SUR.OPER ---
Lithotomy on padded OR bed. [place] Pad Positioner under torso. Head on pillow, arms padded and tucked at sides. Legs secured in padded yellow fins stirrups.
[2023-03-18] MEDS: BUPIVACAINE 0.5% (PF) 30 ML, EPINEPHrine 0.15 MG INJ (10:47)
--- NOTE | 2023-03-18 12:24 | P.HPOB_ITS ---
History of Present Illness History of Present Illness Reason for admission: pelvic prolapse Narrative: Ra Renee is a 83 year old female [facility] Medical History (Updated 03/17/23 @ 08:30 by Moriah Shaikh RN) Breast cancer (~1995) Social History household members: spouse Smoking Status: Former smoker alcohol intake: former Meds Home Medications and Allergies Home Medications Medication Instructions Recorded Confirmed Type mirabegron 50 mg tablet,extended 50 mg PO DAILY #90 tabs 05/13/22 03/18/23 Rx release 24 hr estradiol 0.01% (0.1 mg/gram) 0.5 g vaginal 2XW #42.5 grams 12/16/22 03/18/23 Rx vaginal cream (Estrace) mirtazapine 7.5 mg tablet 7.5 mg PO DAILY 03/18/23 03/18/23 History propranolol 10 mg tablet 10 mg PO DAILY 03/18/23 03/18/23 History Allergies Allergy/AdvReac Type Severity Reaction Status Date / Time Sulfa (Sulfonamide Allergy Mild red face Verified 03/18/23 08:19 Antibiotics) Exam Vital Signs (past 8 hours): - 03/18/23 08:30 Temperature 97.3 F L Pulse Rate 73 Respiratory Rate 17 Blood Pressure 148/82 H Pulse Oximetry 100 Oxygen Delivery Method Room Air Oxygen Delivery Method Room Air Objective Labs Labs: Laboratory Results - last 24 hr 03/18/23 08:11 SARS-CoV-2 (PCR) Negative
--- NOTE | 2023-03-18 12:25 | PM.GYNOP.1 ---
Operative Date/Time/Diagnoses Date of procedure: 03/18/23 Time of procedure: 12:25 Pre-op diagnosis: Uterine prolapse Cystocele Rectocele Post-op diagnosis: same Procedure & Clinicians Procedure: Procedures Operation Date: 03/18/23 09:45 Actual Procedure Side Surgeon p Total Vaginal Hysterectomy w. bilateral salpingo-oophorectomy MD coby Connors Anterior/Posterior Repair Malina Jensen MD Indications: Symptomatic cystocele and rectocele Uterine prolapse Surgeon: Malina Jensen Value Analysis Coordinator: Roseline Garvey Anesthesia Type: General (LMA) and Spinal Operative Notes Findings: 5 wk prolapsed uterus Normal atrophic ovaries Normal tubes Closure Type: primary Specimen(s): left tube & ovary, right tube & ovary and uterus Applied: catheter (to continuous drainage) and other (vaginal packing) Estimated blood loss (mL): 100 Blood products transfused: none Procedure in detail: The patient was taken to the operating room where she was placed in the seated position. After spinal anesthesia was placed, she was placed in the dorsal lithotomy position, and prepped and draped in the usual sterile fashion. A bivalve speculum was placed into the vagina, and a or tooth tenaculum was placed on the cervix. 10 mL of quarter percent Marcaine with epinephrine were injected circumferentially around the cervix. The cervix was circumscribed. The bladder and rectum were dissected off the lower uterine segment and cervix with an open moistened Ray-Miroslava. The peritoneum was entered sharply with the Metzenbaum scissors anteriorly and a Quitman placed. The peritoneum was entered posteriorly with the Metzenbaum scissors and the long weighted speculum was placed into the posterior cul-de-sac. The uterosacral cardinal ligament complexes were clamped, transected, and suture ligated with 0 Vicryl. These were attached to hemostats. The uterine arteries were clamped, transected, and suture ligated with 0 Vicryl. The uterus was handed off for specimen. The tubes and ovaries were then grasped with Shaq's. The infundibulopelvic ligaments were clamped, transected, free tied with 0 Vicryl and then suture ligated with 0 Vicryl. The vaginal cuff was closed with 0 Vicryl with a series of simple interrupted sutures. The tagged sutures were cut. 2 Allis clamps were placed at the apex of the cystocele. 6 mL of half percent Marcaine with epinephrine were injected and an incision was made with a #10 blade between the 2 Allis clamps. Wide Allis clamps were placed on the midline of the cystocele approximately 5. The mucosa was undermined using the Metzenbaum scissors and the mucosa incised in the midline moving the wide Allis clamps to the edges of the mucosa. The mucosa was dissected off the underlying fascia using an open moistened Ray-Miroslava and a #10 blade. The fascia was reapproximated with 0 Vicryl with a series of horizontal mattress sutures. The excess vaginal mucosa was excised. The mucosa was closed using simple interrupted sutures with 2-0 Vicryl including the underlying fascia to close the space. The weighted speculum was removed from the vagina. Allis clamps were placed at the mucocutaneous junction at the introitus. 6 mL of half percent Marcaine with epinephrine were injected. An incision was made with a #10 blade between the 2 Allis clamps, and a triangular piece of skin and underlying subcutaneous tissue was removed. Allis clamps were placed in the midline of the rectocele. 10 mL of half percent Marcaine with epinephrine were injected submucosally. The mucosa was undermined using the Metzenbaum scissors and the mucosa incised in the midline, moving the wide Allis clamps to the mucosal edges. The underlying fascia was dissected off of th mucosa using an open moistened Ray-Miroslava and a #10 blade. The fascia was reapproximated using 0 Vicryl with a series of horizontal mattress sutures. The excess vaginal mucosa was excised. The mucosa was closed using a series of simple interrupted sutures with 2-0 Vicryl including the underlying fascia to close the space. On the perineum 0 Vicryl was used to reapproximate the levator muscle. The subcutaneous layer was closed with 2-0 Vicryl. The skin was closed with 3-0 chromic in a subcuticular fashion. Hemostasis was achieved. A Betadine moistened vaginal pack was placed into the vagina. A rectal exam was done and there were no sutures palpable in the rectum. The urine was clear. Sponge, lap, and instrument counts were correct x-2. The patient tolerated the procedure well, was taken to PACU in stable condition. Complications: none Post-operative Condition: stable Disposition: PACU Plan for aftercare: To Acute Care after Recovery
[2023-03-18] MEDS: LACTATED RINGERS 1,000 ML 70 ML IV (13:54)
[2023-03-18] MEDS: IBUPROFEN 600 MG TABLET PO ×2 (13:57→19:38)
--- NOTE | 2023-03-18 13:59 | PC.NURSE ---
Pt arrived to room 207 this afternoon at 1307. She is A&Ox3, VSS, on RA.(temp 96.0 and HR 55-60) She currently denies pain. Narcisa pad and vaginal packing in place. No bleeding. Rodas in place, SCD's on. LR IVF running at 70ml/hr. She denies n/v, denies numbness or tingling, dizziness. Continuous monitoring. Chuck is supportive at bedside
[2023-03-18] MEDS: ACETAMINOPHEN 325 MG TABLET 650 MG PO (19:37)
[2023-03-18] MEDS: DOCUSATE 100 MG CAPSULE 200 MG PO (20:28)
[2023-03-18] MEDS: MIRTAZAPINE 15 MG TABLET 7.5 MG PO (20:28)
[2023-03-19 00:09] VITALS: BP 119/56; PULSE 65; RESP 18; TEMP 36.4; O2SAT 97
[2023-03-19] MEDS: ACETAMINOPHEN 325 MG TABLET 650 MG PO ×2 (00:21→06:32)
[2023-03-19] MEDS: IBUPROFEN 600 MG TABLET PO ×2 (00:22→06:31)
[2023-03-19] MEDS: LACTATED RINGERS 1,000 ML 70 ML IV (01:33)
[2023-03-19 05:00] VITALS: BP 142/74; PULSE 89; RESP 14; TEMP 37.1; O2SAT 97
[2023-03-19 06:08] LABS: Add Manual Diff / Slide Review NO; Basophils Absolute Auto 0 /uL (0-100); Basophils Percent Auto 0.2 % (0-2); Eosinophils Absolute Auto 0 /uL (0-450); Hematocrit 38.3 % (36-46); Hemoglobin 13.1 g/dL (12.0-16.0); Lymphocytes Absolute Auto 1600 /uL (1100-4500); Lymphocytes Percent Auto 11.4 % (25-40); Mean Corpuscular HGB Conc 34.3 % (30-36); Mean Corpuscular Hemoglobin 29.7 PG (26-34); Mean Corpuscular Volume 86.4 fL (80-100); Monocytes Absolute Auto 1400 /uL (0-900); Monocytes Percent Auto 9.5 % (3-14); Neutrophils Absolute Auto 11300 /uL (1500-7000); Neutrophils Percent Auto 78.9 % (50-75); Platelet Count 259 X10^3/uL (150-400); Red Blood Cell Count 4.43 X10^6/uL (4.0-5.2); Red Cell Distribution Width 13.6 % (11.6-14.8); White Blood Cell Count 14.3 X10^3/uL (4.5-11.0)
--- NOTE | 2023-03-19 06:13 | PC.NURSE ---
Vaginal packing & varghese catheter was discontinued @ 0600. Dr. Jensen notified that patient does not me to DC her IVF. called back ordered to stop TVF & encourage her to drink ample amount of fluids. Informed of Dr. Jensen order & IVF DC'd. Will cont.POC & monitor.
[2023-03-19 06:14] LABS: BUN Creatinine Ratio 20.5 (6-22); Blood Urea Nitrogen 15 mg/dL (7-17); Calcium 8.2 mg/dL (8.4-10.2); Carbon Dioxide 26 mmol/L (22-32); Chloride 107 mmol/L (98-107); Estimated Glomerular Filt Rate > 60 mL/min (>60); Glucose 113 mg/dL (80-110); HEMOLYSIS < 15 (0-50); Potassium 4.1 mmol/L (3.4-5.1); Sodium 136 mmol/L (137-145)
[2023-03-19] MEDS: SODIUM CHLORIDE 0.9% FLUSH 10 ML IV ×2 (06:32→08:08)
[2023-03-19] MEDS: DOCUSATE 100 MG CAPSULE 200 MG PO (08:05)
[2023-03-19] MEDS: PROPRANOLOL 10 MG TABLET PO (08:06)
[2023-03-19 08:12] VITALS: BP 148/75; PULSE 72
[2023-03-19 09:00] VITALS: BP 123/61; PULSE 73; RESP 16; TEMP 36.2; O2SAT 97
--- NOTE | 2023-03-19 11:03 | P.DS_ITS ---
History of Present Illness History of Present Illness Date Patient Seen: 03/19/23 Time Patient Seen: 11:03 Chief complaint: Anterior-Posterior Repair *OPB* Discharge Providers Provider Discharge Date: 03/19/23 Primary care physician: CHANDU Reynolds Discharge provider: Malina Jensen MD Summary Hospital Course Discharge Diagnosis: Symptomatic cystocele and rectocele Uterine prolapse Hospital Course: Patient is an 83-year-old 1 para 1 who presented March 18, 2023 for a scheduled total vaginal hysterectomy/BSO/anterior and posterior repair. She underwent this procedure without complication. On postop day # 1 her vaginal packing and Rodas catheter were removed. She has been able to void without high postvoid residuals. Her pain is well controlled. She is tolerating a diet. No nausea or vomiting. She is discharged home on postop day #1. Status at Discharge Cognitive/behavioral status at discharge: oriented Functional status at discharge: independent ambulation Overall status at discharge: patient is progressing back to baseline Time Spent with Patient Time spent: Less than 30 minutes Exam Vital Signs (past 8 hours): - 03/19/23 05:00 03/19/23 09:00 03/19/23 08:12 Temperature 98.7 F 97.1 F L Pulse Rate 89 73 72 Respiratory Rate 14 16 Blood Pressure 142/74 H 123/61 148/75 H Pulse Oximetry 97 97 Oxygen Delivery Method Room Air Oxygen Flow Rate 0 Narrative Exam Narrative: Generally: Patient lying in bed, no acute distress Lungs: Clear to auscultation bilaterally Cardiovascular: Regular rate and rhythm Abdomen: Soft and flat. Perineum: Dry Extremities: No edema, negative Homans Objective Labs 03/19/23 05:52 03/19/23 05:52 Labs: Laboratory Results - last 24 hr 03/19/23 03/19/23 05:52 05:52 WBC 14.3 H RBC 4.43 Hgb 13.1 Hct 38.3 MCV 86.4 MCH 29.7 MCHC 34.3 RDW 13.6 Plt Count 259 Neut % (Auto) 78.9 H Lymph % (Auto) 11.4 L [place] % (Auto) 9.5 Eos % (Auto) 0.0 L Baso % (Auto) 0.2 Neut # (Auto) 19322 H Lymph # (Auto) 1600 [place] # (Auto) 1400 H Eos # (Auto) 0 Baso # (Auto) 0 Sodium 136 L Potassium 4.1 Chloride 107 Carbon Dioxide 26 BUN 15 Creatinine 0.73 Estimated GFR > 60 BUN/Creatinine Ratio 20.5 Glucose 113 H Calcium 8.2 L PFSH Medical History (Updated 03/17/23 @ 08:30 by Moriah Shaikh RN) Breast cancer (~1995) Social History household members: spouse Smoking Status: Former smoker alcohol intake: former Discharge Assessment & Plan Assessment and Plan Assessment: Postop day # 1 status post TVH/BSO/anterior and posterior repair/perineorrhaphy doing very well Plan of Treatment: Discharge to home Follow-up in 2 weeks Discharge instructions given Discharge Plan Discharge Plan Patient Disposition: Home Provider Discharge Comment: Call with fever, chills, or vaginal bleeding more than spotting to light tylenol 650mg every 6 hours as needed Ibuprofen 600 mg every 6 hours as needed Stool softners Discharge orders & Medications Discharge Orders: Discharge (Order); Ordered 03/19/23 Ordered By: Malina Jensen Prescriptions: Continued estradiol [Estrace] 0.01 % (0.1 mg/gram) cream 0.5 g vaginal 2XW Qty: 42.5 3RF Rx Instructions: twice a week until surgery propranolol 10 mg Tablet 10 mg PO DAILY mirtazapine 7.5 mg Tablet 7.5 mg PO DAILY Discontinued mirabegron 50 mg tablet extended release 24 hr 50 mg PO DAILY Qty: 90 3RF Follow up/Referrals: Malina Jensen MD [Physician] - (Postop visits have already been scheduled) Diet/Activity/Treatments Diet: Regular Activity: No heavy lifting Skin/Wound/Dressing Care Report to your healthcare provider any signs of infection, such as:: chills, fever, increased pain and unusual drainage Visit Report/Discharge Packet Instructions: DI for Cystocele and Rectocele Repair, DI for Vaginal Hysterectomy Stand Alone Forms: Patient Portal/API, Surgery Discharge Discharge Data Primary Care Provider: Emelina Dominguez Attending Provider: Malina Jensen
--- NOTE | 2023-03-19 11:23 | PC.NURSE ---
Pt IV has been removed and she is now getting ready for her discharge home with Spouse. Went over d/c instructions with Pt-discussed d/c meds, time of last dose, reviewed stroke education, encouraged Pt to drink plenty of fluids to prevent constipation or dehydration, and to follow up as already scheduled. Pt will be ready discharge home as soon as her Spouse arrives.
== END 2023-03-19 12:35 | disposition home or self-care (01) ==
LOC: OR 07:58 → AC 07:58
PROVIDERS: PCP Internal Medicine; Referring Provider Obstetrics & Gynecology; Visit Provider Obstetrics & Gynecology
PROC: (CPT 58260; principal; 2023-03-18 09:45)
PROC: (CPT 58262; 2023-03-18 09:45)
DX: N81.3 Complete uterovaginal prolapse (principal)
CPT/HCPCS: 58262; 57260; 36415; 80048; 85025; 87635; C9803; J0131; J0171; J0690; J1100; J2250; J2274; J2405; J2704; J3010

== ENCOUNTER → 2023-03-30 15:22 | Outpatient (CLI) | payer MEDICARE, OTHER, SELFPAY ==
[2023-03-18 16:01] VITALS: BMI 23.2
[2023-03-30 18:19] LABS: Bilirubin Urine UA NEGATIVE (NEGATIVE); Color Urine UA YELLOW; Glucose Urine UA NEGATIVE (Negative); Ketones Urine UA TRACE (NEGATIVE); Leukocyte Esterase Urine UA 3+ (NEGATIVE); Nitrite Urine UA NEGATIVE (Negative); Occult Blood Urine UA 1+ (Negative); Protein Urine UA 2+ (Negative)
[2023-03-30 18:24] LABS: Appearance Urine UA CLOUDY
[2023-03-30 18:36] LABS: Amorphous Sediment Urine 1+; Bacteria Urine Many (>30); RBC Urine 1-5/HPF (0-5/HPF); Squamous Epithelial Cell Urine 1-5 /HPF (0-5/HPF); WBC Urine >100/HPF (0-5/HPF)
[2023-03-30 18:37] LABS: Culture Indicated Urine Specimen Cultured
== END ==
PROVIDERS: PCP Internal Medicine; Referring Provider Obstetrics & Gynecology; Visit Provider Obstetrics & Gynecology
DX: N39.0 Urinary tract infection, site not specified (principal)
CPT/HCPCS: 81003; 81015; 87077; 87086; 87186

== ENCOUNTER → 2023-04-26 14:07 | Outpatient (CLI) | payer MEDICARE, OTHER, SELFPAY ==
[2023-03-18 16:01] VITALS: BMI 23.2
[2023-04-26 15:07] LABS: Appearance Urine UA SL CLOUDY; Bilirubin Urine UA NEGATIVE (NEGATIVE); Color Urine UA YELLOW; Glucose Urine UA NEGATIVE (Negative); Ketones Urine UA NEGATIVE (NEGATIVE); Leukocyte Esterase Urine UA 3+ (NEGATIVE); Nitrite Urine UA POSITIVE (Negative); Occult Blood Urine UA NEGATIVE (Negative); Protein Urine UA NEGATIVE (Negative); Urobilinogen Urine UA 0.2 E.U./dL (0.2)
[2023-04-26 15:21] LABS: Bacteria Urine Many (>30); Culture Indicated Urine Specimen Cultured; RBC Urine 0-1/HPF (0-5/HPF); Squamous Epithelial Cell Urine 0-1 /HPF (0-5/HPF); WBC Urine 10-30/HPF (0-5/HPF)
== END ==
PROVIDERS: PCP Internal Medicine; Referring Provider Obstetrics & Gynecology; Visit Provider Obstetrics & Gynecology
DX: R30.0 Dysuria (principal)
CPT/HCPCS: 81001; 87077; 87086; 87186

== ENCOUNTER → 2023-05-11 16:35 | Outpatient (CLI) | payer MEDICARE, OTHER, SELFPAY ==
[2023-03-18 16:01] VITALS: BMI 23.2
== END ==
PROVIDERS: Family Provider Internal Medicine; PCP Internal Medicine; Visit Provider Obstetrics & Gynecology
DX: N39.0 Urinary tract infection, site not specified (principal)
CPT/HCPCS: 87077; 87086; 87186

== ENCOUNTER → 2023-06-23 12:05 | Outpatient (CLI) | payer MEDICARE, OTHER, SELFPAY ==
[2023-03-18 16:01] VITALS: BMI 23.2
--- NOTE | 2023-06-23 12:09 | DI.MRI.S_ITS ---
BREAST MRI OF BOTH BREASTS- POST LUMPECTOMY: 06/23/2023 CLINICAL: Lump in the Left breast; history of breast cancer. PROCEDURE: MR BREAST BI WO/W CON INDICATIONS: Lump in the left breast,history of breast cancer TECHNIQUE: The patient was placed prone in a dedicated breast imaging coil. Precontrast axial STIR and 3D FLASH without fat saturation sequences were obtained. Both before and after bolus injection of contrast, sequential 1-minute axial 3D FLASH with fat saturation sequences for 3 time points, with subtraction images and maximum intensity projections (MIP's) generated. Delayed sagittal FLASH images with fat saturation were also obtained. Computer-aided detection, including computer algorithm analysis of MRI image data for lesion detection and characterization, pharmacokinetic analysis, with further physician review for interpretation, was performed. COMPARISON: [facility], , MR BREAST BI WO/W CON, 12/04/2020, 12:23. FINDINGS: Image quality: Excellent. There is moderate background parenchymal enhancement. Right breast: Punctate foci of enhancement are redemonstrated similar to the MRI dated December 04, 2020. There is a new 0.4 x 0.5 x 0.5 focus of enhancement within the right breast at 12 o'clock 5.7 cm deep to the nipple (series 5/image 64 and series 14/image 65). No other suspicious foci of enhancement or mass lesions. Left breast: Postoperative changes are noted. Multiple surgical clips are present. Fat necrosis is redemonstrated. There is a new 0.4 x 0.7 x 0.3 cm focus of enhancement within the left breast, central to the nipple, 3.5 cm posterior to the nipple (series 10/image 66 and series 15/image 59). No other suspicious foci of enhancement or mass lesions. Miscellaneous: No axillary or intramammary adenopathy. There is a moderate-sized hiatal hernia noted. Limited visualization of the heart, lungs, mediastinum, and upper abdomen are otherwise unremarkable. IMPRESSION: INCOMPLETE: NEEDS ADDITIONAL IMAGING EVALUATION 1. Subcentimeter foci of enhancement within the bilateral breasts which are new when compared with the MRI dated December 04, 2020. Although these regions may represent fat necrosis or background enhancement, given the interval manager exchange time, second-look ultrasound is recommended. Electronically Signed By: May elizalde/:06/23/2023 16:48:02 letter sent: Additional Imaging Needed ACR BI-RADS Category 0: Incomplete 3340F
== END ==
PROVIDERS: Family Provider Internal Medicine; PCP Internal Medicine; Referring Provider Internal Medicine; Visit Provider Internal Medicine
DX: N63.21 Unspecified lump in the left breast, upper outer quadrant (principal); N64.89 Other specified disorders of breast; R23.4 Changes in skin texture; K44.9 Diaphragmatic hernia without obstruction or gangrene; Z85.3 Personal history of malignant neoplasm of breast
CPT/HCPCS: 77049; A9579

== ENCOUNTER → 2023-07-15 12:52 | Outpatient (CLI) | payer MEDICARE, OTHER, SELFPAY ==
[2023-03-18 16:01] VITALS: BMI 23.2
--- NOTE | 2023-07-15 12:54 | DI.US.S_ITS ---
LIMITED ULTRASOUND OF RIGHT BREAST AND AXILLA: 07/15/2023 CLINICAL: Patient returns today to evaluate a focal asymmetry in the right breast. Comparison is made to exams dated: 06/23/2023 breast MRI, 12/23/2022 mammogram, 12/18/2021 mammogram, 12/04/2020 breast MRI, 12/11/2019 ultrasound, and 12/11/2019 mammogram - [facility]. Color flow and real-time ultrasound of the right breast 12 o'clock, and axilla regions were performed. Goode scale images of the real-time examination were reviewed. There is a benign 1.2 cm post-surgical scar with an indistinct margin in the right breast at 12 o'clock anterior depth. This post-surgical scar is hypoechoic. This correlates with mammography findings. Color flow imaging demonstrates that there is no vascularity present. No mass identified to correspond to the enhancing focus on MRI. No significant abnormalities were seen sonographically in the right axilla. IMPRESSION: BENIGN There is no sonographic evidence of malignancy. The 1.2 cm post-surgical scar or resolved hematoma in the right breast is benign. No mass identified to correspond to the enhancing focus on MRI. A follow-up breast MRI in 6 months is recommended to demonstrate stability. No enlarged right axillary lymph nodes. Exam findings were discussed with the patient. This exam was interpreted at Station ID: [id number]. Electronically Signed By: Fadi Kiran M.D. slc/:07/15/2023 16:21:50 letter sent: Followup Recommended Ultrasound BI-RADS: 2 Benign
--- NOTE | 2023-07-15 12:54 | DI.US.S_ITS ---
LIMITED ULTRASOUND OF LEFT BREAST AND AXILLA: 07/15/2023 CLINICAL: Patient returns today to evaluate a focal asymmetries in the left breast. Comparison is made to exams dated: 06/23/2023 breast MRI, 12/23/2022 mammogram, 12/18/2021 ultrasound, 12/18/2021 mammogram, and 12/04/2020 breast MRI - [facility]. Color flow and real-time ultrasound of the left breast 3 o'clock, 6 o'clock, retroareolar, and axilla regions were performed. Goode scale images of the real-time examination were reviewed. There is a benign 0.5 cm x 0.5 cm x 0.3 cm oval simple cyst in the left breast at 3 o'clock middle depth 10 cm from the nipple. This oval simple cyst is anechoic. This correlates as an incidental finding. Color flow imaging demonstrates that there is no vascularity present. There also is a benign irregular post-surgical scar in the left breast central to the nipple posterior depth. This irregular post-surgical scar is hypoechoic. This correlates with breast MRI findings. Color flow imaging demonstrates that there is no vascularity present. No mass identified to correspond to the enhancing focus on MRI. No significant abnormalities were seen sonographically in the left axilla. IMPRESSION: PROBABLY BENIGN There is no sonographic evidence of malignancy. The 0.5 cm simple cyst in the left breast at 3 o'clock middle depth is benign. The irregular post-surgical scar in the left breast central to the nipple posterior depth is benign. No mass identified to correspond to the enhancing focus on MRI. A follow-up breast MRI in 6 months is recommended to demonstrate stability. No enlarged left axillary lymph nodes. Exam findings were discussed with the patient. Patient is advised to monitor for significant change. Clinical follow-up as needed. This exam was interpreted at Station ID: [id number]. Electronically Signed By: Fadi Kiran M.D. [facility] [place]/:07/15/2023 16:31:33 letter sent: Followup Recommended Ultrasound BI-RADS: 3 Probably benign
== END ==
PROVIDERS: Family Provider Internal Medicine; PCP Internal Medicine; Referring Provider Internal Medicine; Visit Provider Internal Medicine
DX: N64.89 Other specified disorders of breast (principal); N60.01 Solitary cyst of right breast; L90.5 Scar conditions and fibrosis of skin; Z85.3 Personal history of malignant neoplasm of breast
CPT/HCPCS: 76642

== ENCOUNTER 2023-12-21 13:00 | Outpatient (RCR) | payer MEDICARE, OTHER, SELFPAY ==
[2023-03-18 16:01] VITALS: BMI 23.2
--- NOTE | 2023-06-24 11:45 | PT.OIE ---
Current Diagnoses Urge incontinence (06/22/23) Pelvic muscle wasting (06/22/23) Nocturia (06/22/23) Past Medical History (Last Updated 03/17/23 @ 08:30 by Moriah Shaikh RN) Breast cancer (~1995) Visit Care Team Role Provider Type CHANDU Reynolds Family Provider Advanced Phy Therapist Primary Care Provider Specialty: Family Practice Address: [address] [place] [address], [place], [address] Email: [email or web address] Malina Jensen MD Attending Provider Physician Referring Provider Specialty: Gynecology POSTDOCTORAL RESEARCH FELLOW Obstetrics Address: [address] [place] [address], [id number] Email: [email or web address] Physical Therapy Initial Evaluation PT-OP-A Visit Information Start: 06/22/23 07:56 Freq: Status: Active Protocol: Document 06/22/23 14:50 [facility] (Rec: 06/22/23 15:36 [facility] [id number]) Out-Patient Physical Therapy Visit Information Visit Information Visit Type Initial Evaluation Visit Start Time 15:00 Visit Stop Time 15:45 Total Visit Minutes 45 Visit Number 1 Evaluation Information Evaluation Date 06/22/23 PT-OP-B Current Condition Start: 06/22/23 07:56 Freq: Status: Active Protocol: Document 06/22/23 14:50 [facility] (Rec: 06/22/23 15:36 [facility] [id number]) Current Condition History of Current Condition Onset Date February 2023 Current Complaints urinary urgency, nocturia and leaking at night History of Current Condition pt's had a heart attact and he had stents put in but now he has dialasis 3 times per week so Jeff is taking care of his pills and getting him to his appointments. She underwent a AP prepair and hysterectomy the end of February. She is able to control the leakage during the day. She is voiding a great amount and does experience urinary urgency. She sets a alarm for a few hours after she goes to sleep to get up to void as she was leaking. She has had a couple of UTI's since her surgery. Her last UTI was a month ago. Pt reports fecal smearing with wiping. Pt notes she does not drink much water during the day. Jeff reports she does have estrogen cream but has not used it yet PT-OP-I Pelvic Floor Start: 06/22/23 07:56 Freq: Status: Active Protocol: Document 06/24/23 08:39 [facility] (Rec: 06/24/23 08:50 [facility] [id number]) Pelvic Floor Assessment Urine Pelvic Floor Surgery Yes: TVH w/BSO, A&P repair Urinary Symptoms Urge Sensation Other Urinary Symptoms pt will leak upon walking to the toilet, history of UTI's, nocturia Leakage Size Medium Leakage Cause Urge Nocturia 4 Urine Pad Type Maxi Pad Pelvic Clock Pelvic Clock 12-3 Atrophy Pelvic Clock 3-6 Atrophy Pelvic Clock 6-9 Atrophy Pelvic Clock 9-12 Atrophy Contraction Ability Voluntary Contraction Weak Manual Muscle Testing Left 2 Manual Muscle Testing Right 2 Manual Muscle Testing Anterior 1 Manual Muscle Testing Posterior 2 Muscle Endurance (Seconds) 4 PT-OP-Q Treatments Start: 06/22/23 07:56 Freq: Status: Active Protocol: Document 06/22/23 15:44 [facility] (Rec: 06/22/23 15:46 [facility] [id number]) Therapeutic Exercises Supine Exercises pelvic floor quick flicks Reps/Minutes 2 sec on 2 sec off x 10 reps pelvic floor long holds Reps/Minutes x 10 reps hold x 10 seconds and relax x 10 seconds Self-Care/Home Management Treatment Education Other Education pt was educated in increasing water intake as she only gets in approx 1 maybe 2 glasses per day of water and pt was educated in the urge deference technique/bladder retraining. She was given a HEP for pelvic floor strengthening PT-OP-T Assessment and Plan Start: 06/22/23 07:56 Freq: Status: Active Protocol: Document 06/22/23 14:50 [facility] (Rec: 06/22/23 15:36 [facility] [id number]) Physical Therapy Assessment Rehab Potential Rehabilitation Potential Excellent Evaluation Complexity Number of Personal Factors/Comorbidities 0 Number of Body Systems Impaired 1-2 Clinical Presentation at Evaluation Stable Impairments Impairments Activity Tolerance,Functional Activities,Soft Tissue Mobility,Strength Other Impairments urinary urgency and frequency, nocturia and loss of urine at night, history of UTI's Goals 4 Impairment Decreased pelvic floor endurance Short Term Goal (STG) Jeff is able to sustain a pelvic floor contraction x 10 seconds in the supine position STG Duration 5 weeks Subgrade Tester Goal (LTG) Jeff is able to contract her pelvic floor in standing and maintain a contraction x 5 seconds or more LTG Duration 8 weeks 3 Impairment pelvic floor weakness s/p TVH w/BSO and Anterior posterior repair Subgrade Tester Goal (LTG) Jeff is able to increase her pelvic floor strength by 1 muscle grade with MMT LTG Duration 8 weeks 2 Impairment Urinary urgency and frequency complaints Short Term Goal (STG) jeff is educated on proper hydration and bladder irritants, bladder retraining and urge deference technique STG Duration 3 weeks Subgrade Tester Goal (LTG) Jeff reports a reduction in urinary urgency and frequency and is able to increase her water intake during the day LTG Duration 8 weeks 1 Impairment Nocturia with pt waking up 4 times per night to void and pt voids frequently during the day just in case Subgrade Tester Goal (LTG) Jeff has overall decreased complaints of nocturia and is only waking 1-2 times per night to void LTG Duration 8 weeks Assessment Summary Assessment Jeff is a 83 year old female who returns to PT today following her TVH w/BSO, anterior and posterior repair surgery 03/18/23. She would like PT for improved pelvic floor strength and also to help with urgency. Her stress incontinence symptoms are greatly improved following her surgery. She notes nocturia approx 4 times per night. Jeff reports having a few UTI's this past year and she is wanting to avoid the EMG biofeedback as she is fearful of further UTI's. she has been prescribed vaginal estrogen cream but she has not started using it. With exam today Jeff is able to contract all aspects of her pelvic floor however she is weakest in the anterior pelvic floor. She also lacks ability to sustain a pelvic floor contraction. Time was spent today working on anterior pelvic floor facilitation as well as reviewing urge deference technique and bladder retraining. I also educated Jeff on the importance of making sure she is hydrating throughout the day as she notes she drinks very minimal fluids. I explained to her how dehydration can contribute to UTI's as well as contribute to urgency. Jeff is a good candidate for PT Physical Therapy Plan Frequency and Duration Frequency of Treatment 1x/Week Duration of treatment (weeks) 8 Plan of Care Start Date 06/22/23 Plan of Care End Date 08/17/23 Therapeutic Interventions Therapeutic Interventions Home Exercise Program,Self- Care/Home Management Modalities Biofeedback Next Visit Focus/Plan Next Note Type Treatment Note Next Visit Plan Progress pelvic floor strengthening and add in hip strengthening to help support the pelvic floor, review urge deference technique and bladder diary
--- NOTE | 2023-06-24 11:46 | PT.OPPOC ---
Physical, Occupational & Speech Therapy At [facility] Current Diagnoses Urge incontinence (06/22/23) Pelvic muscle wasting (06/22/23) Nocturia (06/22/23) Visit Care Team Role Provider Type CHANDU Reynolds Family Provider Advanced Financial Services Auditor Primary Care Provider Specialty: Family Practice Address: [address] [place] [address], [place], [address] Email: [email or web address] Malina Jensen MD Attending Provider Physician Referring Provider Specialty: Gynecology LEASING COORDINATOR Obstetrics Address: [address] [place] [address], [address] Email: [email or web address] Plan Of Care PT-OP-T Assessment and Plan Start: 06/22/23 07:56 Freq: Status: Active Protocol: Document 06/22/23 14:50 [facility] (Rec: 06/22/23 15:36 [facility] [id number]) Physical Therapy Assessment Rehab Potential Rehabilitation Potential Excellent Evaluation Complexity Number of Personal Factors/Comorbidities 0 Number of Body Systems Impaired 1-2 Clinical Presentation at Evaluation Stable Impairments Impairments Activity Tolerance,Functional Activities,Soft Tissue Mobility,Strength Other Impairments urinary urgency and frequency, nocturia and loss of urine at night, history of UTI's Goals 4 Impairment Decreased pelvic floor endurance Short Term Goal (STG) Jeff is able to sustain a pelvic floor contraction x 10 seconds in the supine position STG Duration 5 weeks Prison Goal (LTG) Jeff is able to contract her pelvic floor in standing and maintain a contraction x 5 seconds or more LTG Duration 8 weeks 3 Impairment pelvic floor weakness s/p TVH w/BSO and Anterior posterior repair Day Care Assistant Goal (LTG) Jeff is able to increase her pelvic floor strength by 1 muscle grade with MMT LTG Duration 8 weeks 2 Impairment Urinary urgency and frequency complaints Short Term Goal (STG) jfef is educated on proper hydration and bladder irritants, bladder retraining and urge deference technique STG Duration 3 weeks Day Care Assistant Goal (LTG) Jeff reports a reduction in urinary urgency and frequency and is able to increase her water intake during the day LTG Duration 8 weeks 1 Impairment Nocturia with pt waking up 4 times per night to void and pt voids frequently during the day just in case Day Care Assistant Goal (LTG) Jeff has overall decreased complaints of nocturia and is only waking 1-2 times per night to void LTG Duration 8 weeks Assessment Summary Assessment Jeff is a 83 year old female who returns to PT today following her TVH w/BSO, anterior and posterior repair surgery 03/18/23. She would like PT for improved pelvic floor strength and also to help with urgency. Her stress incontinence symptoms are greatly improved following her surgery. She notes nocturia approx 4 times per night. Jeff reports having a few UTI's this past year and she is wanting to avoid the EMG biofeedback as she is fearful of further UTI's. she has been prescribed vaginal estrogen cream but she has not started using it. With exam today Jeff is able to contract all aspects of her pelvic floor however she is weakest in the anterior pelvic floor. She also lacks ability to sustain a pelvic floor contraction. Time was spent today working on anterior pelvic floor facilitation as well as reviewing urge deference technique and bladder retraining. I also educated Jeff on the importance of making sure she is hydrating throughout the day as she notes she drinks very minimal fluids. I explained to her how dehydration can contribute to UTI's as well as contribute to urgency. Jeff is a good candidate for PT Physical Therapy Plan Frequency and Duration Frequency of Treatment 1x/Week Duration of treatment (weeks) 8 Plan of Care Start Date 06/22/23 Plan of Care End Date 08/17/23 Therapeutic Interventions Therapeutic Interventions Home Exercise Program,Self- Care/Home Management Modalities Biofeedback Next Visit Focus/Plan Next Note Type Treatment Note Next Visit Plan Progress pelvic floor strengthening and add in hip strengthening to help support the pelvic floor, review urge deference technique and bladder diary Plan of Care Dates Plan of Care Start Date 06/22/23 Plan of Care End Date 08/17/23 Electronically Signed by: Mariam Caban, PT 06/24/23 [id number] If you are in agreement with this Plan of Care, please return a signed and dated copy. I have reviewed this Plan of Care and certify that the skilled therapy services above are required to meet the patient?s needs. Physician Signature Date Printed Name and Credentials Clinical Instructor Signature Printed Name and Credentials
--- NOTE | 2023-07-06 14:56 | PT.OTN ---
Current Diagnoses Urge incontinence (07/06/23) Pelvic muscle wasting (07/06/23) Nocturia (07/06/23) Physical Therapy Treatment Note PT-OP-A Visit Information Start: 06/22/23 07:56 Freq: Status: Active Protocol: Document 07/06/23 11:20 [facility] (Rec: 07/06/23 14:54 [facility] [id number]) Out-Patient Physical Therapy Visit Information Visit Information Visit Type Treatment Note Visit Start Time 11:20 Visit Stop Time 12:00 Total Visit Minutes 40 Visit Number 2 PT-OP-B Current Condition Start: 06/22/23 07:56 Freq: Status: Active Protocol: Document 06/22/23 14:50 [facility] (Rec: 06/22/23 15:36 [facility] [id number]) Current Condition History of Current Condition Onset Date February 2023 Current Complaints urinary urgency, nocturia and leaking at night History of Current Condition pt's had a heart attact and he had stents put in but now he has dialasis 3 times per week so Ra is taking care of his pills and getting him to his appointments. She underwent a AP prepair and hysterectomy the end of February. She is able to control the leakage during the day. She is voiding a great amount and does experience urinary urgency. She sets a alarm for a few hours after she goes to sleep to get up to void as she was leaking. She has had a couple of UTI's since her surgery. Her last UTI was a month ago. Pt reports fecal smearing with wiping. Pt notes she does not drink much water during the day. Ra reports she does have estrogen cream but has not used it yet PT-OP-C Subjective Start: 06/22/23 07:56 Freq: Status: Active Protocol: Document 07/06/23 11:20 [facility] (Rec: 07/06/23 11:35 [facility] [id number]) OP-PT Subjective Patient Comments Patient Comments pt notes she has been doing her exercises and drinking more water, during the day she is keeping pretty dry but at night time it seems like the bladder is getting full and there is some leakage. She has been getting in 3 more glasses of water per day. The urge technique is difficult to do at night PT-OP-I Pelvic Floor Start: 06/22/23 07:56 Freq: Status: Active Protocol: Document 06/24/23 08:39 [facility] (Rec: 06/24/23 08:50 [facility] [id number]) Pelvic Floor Assessment Urine Pelvic Floor Surgery Yes: TVH w/BSO, A&P repair Urinary Symptoms Urge Sensation Other Urinary Symptoms pt will leak upon walking to the toilet, history of UTI's, nocturia Leakage Size Medium Leakage Cause Urge Nocturia 4 Urine Pad Type Maxi Pad Pelvic Clock Pelvic Clock 12-3 Atrophy Pelvic Clock 3-6 Atrophy Pelvic Clock 6-9 Atrophy Pelvic Clock 9-12 Atrophy Contraction Ability Voluntary Contraction Weak Manual Muscle Testing Left 2 Manual Muscle Testing Right 2 Manual Muscle Testing Anterior 1 Manual Muscle Testing Posterior 2 Muscle Endurance (Seconds) 4 PT-OP-Q Treatments Start: 06/22/23 07:56 Freq: Status: Active Protocol: Document 07/06/23 11:20 [facility] (Rec: 07/06/23 11:53 [facility] [id number]) Therapeutic Exercises Supine Exercises hip roll outs Reps/Minutes x 20 reps pelvic floor quick flicks Reps/Minutes 2 sec on 2 sec off x 10 reps pelvic floor long holds Reps/Minutes x 10 reps hold x 10 seconds and relax x 10 seconds Sitting Exercises pelvic floor sit-stand Reps/Minutes x 10 reps Self-Care/Home Management Treatment Education Patient Education Home Exercise Program Other Education postural education to decrease downward pressure on the bladder PT-OP-T Assessment and Plan Start: 06/22/23 07:56 Freq: Status: Active Protocol: Document 07/06/23 11:20 [facility] (Rec: 07/06/23 14:54 [facility] [id number]) Physical Therapy Assessment Assessment Summary Assessment Ra tolerated today's exercises well and I added in hip roll outs for ER as well as sit-stand with pelvic floor engagement. Time was also spent on posture as Ra tends to have a forward posture putting increased pressure onto her bladder. Physical Therapy Plan Frequency and Duration Frequency of Treatment 1x/Week Duration of treatment (weeks) 8 Plan of Care Start Date 06/22/23 Plan of Care End Date 08/17/23
--- NOTE | 2023-09-15 13:18 | PT.OTN ---
Current Diagnoses Urge incontinence (09/15/23) Pelvic muscle wasting (09/15/23) Nocturia (09/15/23) Physical Therapy Treatment Note PT-OP-A Visit Information Start: 06/22/23 07:56 Freq: Status: Active Protocol: Document 09/15/23 12:16 [facility] (Rec: 09/15/23 13:17 [facility] [id number]) Out-Patient Physical Therapy Visit Information Visit Information Visit Type Progress Note Visit Start Time 12:15 Visit Stop Time 13:00 Total Visit Minutes 45 Visit Number 3 PT-OP-B Current Condition Start: 06/22/23 07:56 Freq: Status: Active Protocol: Document 06/22/23 14:50 [facility] (Rec: 06/22/23 15:36 [facility] [id number]) Current Condition History of Current Condition Onset Date February 2023 Current Complaints urinary urgency, nocturia and leaking at night History of Current Condition pt's had a heart attact and he had stents put in but now he has dialasis 3 times per week so Jeff is taking care of his pills and getting him to his appointments. She underwent a AP prepair and hysterectomy the end of February. She is able to control the leakage during the day. She is voiding a great amount and does experience urinary urgency. She sets a alarm for a few hours after she goes to sleep to get up to void as she was leaking. She has had a couple of UTI's since her surgery. Her last UTI was a month ago. Pt reports fecal smearing with wiping. Pt notes she does not drink much water during the day. Jeff reports she does have estrogen cream but has not used it yet PT-OP-C Subjective Start: 06/22/23 07:56 Freq: Status: Active Protocol: Document 09/15/23 12:16 [facility] (Rec: 09/15/23 13:17 [facility] [id number]) OP-PT Subjective Patient Comments Patient Comments pt notes she has been doing her exercises, during the day she can stay pretty dry. She is going frequently. At night time she still sets her alarm to void every 1.5 hours. Jeff reports she will be having botox for her bladder for her urgency and her appt for that is Sep 27. Patient Reported Progress Improving PT-OP-I Pelvic Floor Start: 06/22/23 07:56 Freq: Status: Active Protocol: Document 06/24/23 08:39 [facility] (Rec: 06/24/23 08:50 [facility] [id number]) Pelvic Floor Assessment Urine Pelvic Floor Surgery Yes: TVH w/BSO, A&P repair Urinary Symptoms Urge Sensation Other Urinary Symptoms pt will leak upon walking to the toilet, history of UTI's, nocturia Leakage Size Medium Leakage Cause Urge Nocturia 4 Urine Pad Type Maxi Pad Pelvic Clock Pelvic Clock 12-3 Atrophy Pelvic Clock 3-6 Atrophy Pelvic Clock 6-9 Atrophy Pelvic Clock 9-12 Atrophy Contraction Ability Voluntary Contraction Weak Manual Muscle Testing Left 2 Manual Muscle Testing Right 2 Manual Muscle Testing Anterior 1 Manual Muscle Testing Posterior 2 Muscle Endurance (Seconds) 4 PT-OP-Q Treatments Start: 06/22/23 07:56 Freq: Status: Active Protocol: Document 09/15/23 12:16 [facility] (Rec: 09/15/23 13:17 [facility] [id number]) Therapeutic Exercises Supine Exercises bridges Supine Exercise Name HEP Reps/Minutes x 10 reps hip roll outs Reps/Minutes x 20 reps Sitting Exercises pelvic floor sit-stand Sitting Exercise Name with pelvic floor engagement on the return to stand Reps/Minutes x 10 reps Standing Exercises standing hip abduction Reps/Minutes 2 x 10 reps standing mini squats Reps/Minutes 2 x 10 reps Comments with pelvic floor engagement on the return to stand standing door way stretch Reps/Minutes holding 30 seconds standing scapula squeeze Reps/Minutes x 10 reps Self-Care/Home Management Treatment Education Patient Education Home Exercise Program Other Education postural education continued and bladder retraining/urge deference technique reviewed PT-OP-T Assessment and Plan Start: 06/22/23 07:56 Freq: Status: Active Protocol: Document 09/15/23 12:16 [facility] (Rec: 09/15/23 13:17 [facility] [id number]) Physical Therapy Assessment Goals 4 Impairment Decreased pelvic floor endurance Short Term Goal (STG) Jeff is able to sustain a pelvic floor contraction x 10 seconds in the supine position Good progress STG Duration 5 weeks Fuel Assembler Goal (LTG) Jeff is able to contract her pelvic floor in standing and maintain a contraction x 5 seconds or more goal not yet met LTG Duration 8 weeks 3 Impairment pelvic floor weakness s/p TVH w/BSO and Anterior posterior repair Fuel Assembler Goal (LTG) Jeff is able to increase her pelvic floor strength by 1 muscle grade with MMT good progress LTG Duration 8 weeks 2 Impairment Urinary urgency and frequency complaints Short Term Goal (STG) jeff is educated on proper hydration and bladder irritants, bladder retraining and urge deference technique goal met STG Duration 3 weeks Fuel Assembler Goal (LTG) Jeff reports a reduction in urinary urgency and frequency and is able to increase her water intake during the day During the day symptoms have improved and Jeff is working on increasing her water intake LTG Duration 8 weeks 1 Impairment Nocturia with pt waking up 4 times per night to void and pt voids frequently during the day just in case Penitentiary Goal (LTG) Jeff has overall decreased complaints of nocturia and is only waking 1-2 times per night to void no change LTG Duration 8 weeks Assessment Summary Assessment Jeff has not been seen since June and today is her 3rd visit with PT. She is working on the urge deference technique and is staying dry for the most part during the day. It is the nocturia that is still bothering her and she wakes up approx every 1.5 hours at night to void. Jeff is having botox injection into the bladder to help with urgency Next month. She will return to PT after this procedure Physical Therapy Plan Frequency and Duration Frequency of Treatment 1x/Week Duration of treatment (weeks) 8 Plan of Care Start Date 09/15/23 Plan of Care End Date 11/10/23 Therapeutic Interventions Therapeutic Interventions Home Exercise Program,Self- Care/Home Management, Therapeutic Exercises Modalities Biofeedback Next Visit Focus/Plan Next Note Type Treatment Note Next Visit Plan recheck on nocturia symptoms following botox for the bladder, review new exercises that we worked on today for core stabilization and hip strengthening.
--- NOTE | 2023-09-15 13:18 | PT.OPPOC ---
Physical, Occupational & Speech Therapy At [facility] Current Diagnoses Urge incontinence (09/15/23) Pelvic muscle wasting (09/15/23) Nocturia (09/15/23) Visit Care Team Role Provider Type CHANDU Reynolds Family Provider Advanced Frankfurter Inspector Primary Care Provider Specialty: Family Practice Address: [address] [place] [address], [place], [address] Email: [email or web address] Malina Jensen MD Attending Provider Physician Referring Provider Specialty: Gynecology HAND COKE DRAWER Obstetrics Address: [address] [place] [address], [address] Email: [email or web address] Plan Of Care PT-OP-T Assessment and Plan Start: 06/22/23 07:56 Freq: Status: Active Protocol: Document 09/15/23 12:16 [facility] (Rec: 09/15/23 13:17 [facility] [id number]) Physical Therapy Assessment Goals 4 Impairment Decreased pelvic floor endurance Short Term Goal (STG) Jeff is able to sustain a pelvic floor contraction x 10 seconds in the supine position Good progress STG Duration 5 weeks Dialysis Registered Nurse Goal (LTG) Jeff is able to contract her pelvic floor in standing and maintain a contraction x 5 seconds or more goal not yet met LTG Duration 8 weeks 3 Impairment pelvic floor weakness s/p TVH w/BSO and Anterior posterior repair Correction Goal (LTG) Jeff is able to increase her pelvic floor strength by 1 muscle grade with MMT good progress LTG Duration 8 weeks 2 Impairment Urinary urgency and frequency complaints Short Term Goal (STG) jeff is educated on proper hydration and bladder irritants, bladder retraining and urge deference technique goal met STG Duration 3 weeks Dialysis Registered Nurse Goal (LTG) Jeff reports a reduction in urinary urgency and frequency and is able to increase her water intake during the day During the day symptoms have improved and Jeff is working on increasing her water intake LTG Duration 8 weeks 1 Impairment Nocturia with pt waking up 4 times per night to void and pt voids frequently during the day just in case Correction Goal (LTG) Jeff has overall decreased complaints of nocturia and is only waking 1-2 times per night to void no change LTG Duration 8 weeks Assessment Summary Assessment Jeff has not been seen since June and today is her 3rd visit with PT. She is working on the urge deference technique and is staying dry for the most part during the day. It is the nocturia that is still bothering her and she wakes up approx every 1.5 hours at night to void. Jeff is having botox injection into the bladder to help with urgency Next month. She will return to PT after this procedure Physical Therapy Plan Frequency and Duration Frequency of Treatment 1x/Week Duration of treatment (weeks) 8 Plan of Care Start Date 09/15/23 Plan of Care End Date 11/10/23 Therapeutic Interventions Therapeutic Interventions Home Exercise Program,Self- Care/Home Management, Therapeutic Exercises Modalities Biofeedback Next Visit Focus/Plan Next Note Type Treatment Note Next Visit Plan recheck on nocturia symptoms following botox for the bladder, review new exercises that we worked on today for core stabilization and hip strengthening. Plan of Care Dates Plan of Care Start Date 09/15/23 Plan of Care End Date 11/10/23 Electronically Signed by: Mariam Caban, PT 09/15/23 [id number] If you are in agreement with this Plan of Care, please return a signed and dated copy. I have reviewed this Plan of Care and certify that the skilled therapy services above are required to meet the patient?s needs. Physician Signature Date Printed Name and Credentials Clinical Instructor Signature Printed Name and Credentials
--- NOTE | 2023-10-20 13:00 | PT.OTN ---
Current Diagnoses Urge incontinence (10/20/23) Pelvic muscle wasting (10/20/23) Nocturia (10/20/23) Physical Therapy Treatment Note PT-OP-A Visit Information Start: 06/22/23 07:56 Freq: Status: Active Protocol: Document 10/20/23 12:04 [facility] (Rec: 10/20/23 12:52 [facility] [id number]) Out-Patient Physical Therapy Visit Information Visit Information Visit Type Progress Note Visit Start Time 12:00 Visit Stop Time 12:45 Total Visit Minutes 45 Visit Number 4 PT-OP-B Current Condition Start: 06/22/23 07:56 Freq: Status: Active Protocol: Document 06/22/23 14:50 [facility] (Rec: 06/22/23 15:36 [facility] [id number]) Current Condition History of Current Condition Onset Date February 2023 Current Complaints urinary urgency, nocturia and leaking at night History of Current Condition pt's had a heart attact and he had stents put in but now he has dialasis 3 times per week so Jeff is taking care of his pills and getting him to his appointments. She underwent a AP prepair and hysterectomy the end of February. She is able to control the leakage during the day. She is voiding a great amount and does experience urinary urgency. She sets a alarm for a few hours after she goes to sleep to get up to void as she was leaking. She has had a couple of UTI's since her surgery. Her last UTI was a month ago. Pt reports fecal smearing with wiping. Pt notes she does not drink much water during the day. Jeff reports she does have estrogen cream but has not used it yet PT-OP-C Subjective Start: 06/22/23 07:56 Freq: Status: Active Protocol: Document 10/20/23 12:04 [facility] (Rec: 10/20/23 12:52 [facility] [id number]) OP-PT Subjective Patient Comments Patient Comments pt notes she did really well with her botox injection and she feels like now her time is prolonged between voids, She had the botox September 27. She reports the botox usually last for 6 months. She is staying pretty dry during the day. PT-OP-I Pelvic Floor Start: 06/22/23 07:56 Freq: Status: Active Protocol: Document 06/24/23 08:39 [facility] (Rec: 06/24/23 08:50 [facility] [id number]) Pelvic Floor Assessment Urine Pelvic Floor Surgery Yes: TVH w/BSO, A&P repair Urinary Symptoms Urge Sensation Other Urinary Symptoms pt will leak upon walking to the toilet, history of UTI's, nocturia Leakage Size Medium Leakage Cause Urge Nocturia 4 Urine Pad Type Maxi Pad Pelvic Clock Pelvic Clock 12-3 Atrophy Pelvic Clock 3-6 Atrophy Pelvic Clock 6-9 Atrophy Pelvic Clock 9-12 Atrophy Contraction Ability Voluntary Contraction Weak Manual Muscle Testing Left 2 Manual Muscle Testing Right 2 Manual Muscle Testing Anterior 1 Manual Muscle Testing Posterior 2 Muscle Endurance (Seconds) 4 PT-OP-Q Treatments Start: 06/22/23 07:56 Freq: Status: Active Protocol: Document 10/20/23 12:04 [facility] (Rec: 10/20/23 12:52 [facility] [id number]) Therapeutic Exercises Supine Exercises bridges Supine Exercise Name HEP Reps/Minutes 2 x 10 reps hip roll outs Reps/Minutes x 20 reps pelvic floor quick flicks Reps/Minutes 2 sec on 2 sec off x 10 reps pelvic floor long holds Reps/Minutes x 10 reps hold x 10 seconds and relax x 10 seconds Sitting Exercises pelvic floor sit-stand Sitting Exercise Name with pelvic floor engagement on the return to stand Reps/Minutes x 10 reps Standing Exercises standing hip abduction Reps/Minutes 2 x 10 reps standing mini squats Reps/Minutes 2 x 10 reps Comments with pelvic floor engagement on the return to stand standing door way stretch Reps/Minutes holding 30 seconds standing scapula squeeze Reps/Minutes x 10 reps PT-OP-T Assessment and Plan Start: 06/22/23 07:56 Freq: Status: Active Protocol: Document 10/20/23 12:04 [facility] (Rec: 10/20/23 12:52 [facility] [id number]) Physical Therapy Assessment Goals 4 Impairment Decreased pelvic floor endurance Short Term Goal (STG) Jeff is able to sustain a pelvic floor contraction x 10 seconds in the supine position Good progress STG Duration 5 weeks Fpc Goal (LTG) Jeff is able to contract her pelvic floor in standing and maintain a contraction x 5 seconds or more improving ability and Jeff is working on pelvic floor contractions with sit-stand LTG Duration 8 weeks 3 Impairment pelvic floor weakness s/p TVH w/BSO and Anterior posterior repair Fpc Goal (LTG) Jeff is able to increase her pelvic floor strength by 1 muscle grade with MMT good progress LTG Duration 8 weeks 2 Impairment Urinary urgency and frequency complaints Short Term Goal (STG) jeff is educated on proper hydration and bladder irritants, bladder retraining and urge deference technique goal met STG Duration 3 weeks Air Reduction Equipment Operator Goal (LTG) Jeff reports a reduction in urinary urgency and frequency and is able to increase her water intake during the day During the day symptoms have improved and Jeff is working on increasing her water intake, night time symptoms are also much better. There have been nights where she is sleeping all night LTG Duration 8 weeks 1 Impairment Nocturia with pt waking up 4 times per night to void and pt voids frequently during the day just in case Fpc Goal (LTG) Jeff has overall decreased complaints of nocturia and is only waking 1-2 times per night to void there has been some change as she has been sleeping through her alarm and not leaking when she doesn't get up during the night LTG Duration 8 weeks Assessment Summary Assessment Jeff has been working on pelvic floor strengthening and also underwent botox to the bladder. She is feeling improvements and decreasing complaints of urgency and frequency as well as decreased leakage. Jeff would like a follow up visit in PT in 2 months to recheck her strength and HEP Physical Therapy Plan Frequency and Duration Frequency of Treatment Every Other Week Duration of treatment (weeks) 8 Plan of Care Start Date 10/20/23 Plan of Care End Date 12/22/23 Therapeutic Interventions Therapeutic Interventions Home Exercise Program,Self- Care/Home Management, Therapeutic Exercises Modalities Biofeedback Next Visit Focus/Plan Next Note Type Treatment Note Next Visit Plan recheck on nocturia symptoms following botox for the bladder, review new exercises that we worked on today for core stabilization and hip strengthening.
--- NOTE | 2023-10-21 15:57 | PT.OPPOC ---
Physical, Occupational & Speech Therapy At Current Diagnoses Urge incontinence (10/20/23) Pelvic muscle wasting (10/20/23) Nocturia (10/20/23) Visit Care Team Role Provider Type CHANDU Reynolds Family Provider Advanced Award Clerk Primary Care Provider Specialty: Family Practice Address: [address] [place] [address], [place], [address] Email: [email or web address] Malina Jensen MD Attending Provider Physician Referring Provider Specialty: Gynecology LEAD TINNER Obstetrics Address: [address] [place] [address], [address] Email: [email or web address] Plan Of Care PT-OP-T Assessment and Plan Start: 06/22/23 07:56 Freq: Status: Active Protocol: Document 10/20/23 12:04 [facility] (Rec: 10/20/23 12:52 [facility] [id number]) Physical Therapy Assessment Goals 4 Impairment Decreased pelvic floor endurance Short Term Goal (STG) Jeff is able to sustain a pelvic floor contraction x 10 seconds in the supine position Good progress STG Duration 5 weeks Mortgage Accounting Clerk Goal (LTG) Jeff is able to contract her pelvic floor in standing and maintain a contraction x 5 seconds or more improving ability and Jeff is working on pelvic floor contractions with sit-stand LTG Duration 8 weeks 3 Impairment pelvic floor weakness s/p TVH w/BSO and Anterior posterior repair Nursing Home Goal (LTG) Jeff is able to increase her pelvic floor strength by 1 muscle grade with MMT good progress LTG Duration 8 weeks 2 Impairment Urinary urgency and frequency complaints Short Term Goal (STG) jeff is educated on proper hydration and bladder irritants, bladder retraining and urge deference technique goal met STG Duration 3 weeks Mortgage Accounting Clerk Goal (LTG) Jeff reports a reduction in urinary urgency and frequency and is able to increase her water intake during the day During the day symptoms have improved and Jeff is working on increasing her water intake, night time symptoms are also much better. There have been nights where she is sleeping all night LTG Duration 8 weeks 1 Impairment Nocturia with pt waking up 4 times per night to void and pt voids frequently during the day just in case Mortgage Accounting Clerk Goal (LTG) Jeff has overall decreased complaints of nocturia and is only waking 1-2 times per night to void there has been some change as she has been sleeping through her alarm and not leaking when she doesn't get up during the night LTG Duration 8 weeks Assessment Summary Assessment Jeff has been working on pelvic floor strengthening and also underwent botox to the bladder. She is feeling improvements and decreasing complaints of urgency and frequency as well as decreased leakage. Jeff would like a follow up visit in PT in 2 months to recheck her strength and HEP Physical Therapy Plan Frequency and Duration Frequency of Treatment Every Other Week Duration of treatment (weeks) 8 Plan of Care Start Date 10/20/23 Plan of Care End Date 12/22/23 Therapeutic Interventions Therapeutic Interventions Home Exercise Program,Self- Care/Home Management, Therapeutic Exercises Modalities Biofeedback Next Visit Focus/Plan Next Note Type Treatment Note Next Visit Plan recheck on nocturia symptoms following botox for the bladder, review new exercises that we worked on today for core stabilization and hip strengthening. Plan of Care Dates Plan of Care Start Date 10/20/23 Plan of Care End Date 12/22/23 Electronically Signed by: Mariam Caban, PT 10/21/23 [id number] If you are in agreement with this Plan of Care, please return a signed and dated copy. I have reviewed this Plan of Care and certify that the skilled therapy services above are required to meet the patient?s needs. Physician Signature Date Printed Name and Credentials Clinical Instructor Signature Printed Name and Credentials
--- NOTE | 2023-10-21 15:57 | PT.OPPN ---
Current Diagnoses Urge incontinence (10/20/23) Pelvic muscle wasting (10/20/23) Nocturia (10/20/23) Physical Therapy Progress Note PT-OP-A Visit Information Start: 06/22/23 07:56 Freq: Status: Active Protocol: Document 10/20/23 12:04 [facility] (Rec: 10/20/23 12:52 [facility] [id number]) Out-Patient Physical Therapy Visit Information Visit Information Visit Type Progress Note Visit Start Time 12:00 Visit Stop Time 12:45 Total Visit Minutes 45 Visit Number 4 PT-OP-B Current Condition Start: 06/22/23 07:56 Freq: Status: Active Protocol: Document 06/22/23 14:50 [facility] (Rec: 06/22/23 15:36 [facility] [id number]) Current Condition History of Current Condition Onset Date February 2023 Current Complaints urinary urgency, nocturia and leaking at night History of Current Condition pt's had a heart attact and he had stents put in but now he has dialasis 3 times per week so Jeff is taking care of his pills and getting him to his appointments. She underwent a AP prepair and hysterectomy the end of February. She is able to control the leakage during the day. She is voiding a great amount and does experience urinary urgency. She sets a alarm for a few hours after she goes to sleep to get up to void as she was leaking. She has had a couple of UTI's since her surgery. Her last UTI was a month ago. Pt reports fecal smearing with wiping. Pt notes she does not drink much water during the day. Jeff reports she does have estrogen cream but has not used it yet PT-OP-C Subjective Start: 06/22/23 07:56 Freq: Status: Active Protocol: Document 10/20/23 12:04 [facility] (Rec: 10/20/23 12:52 [facility] [id number]) OP-PT Subjective Patient Comments Patient Comments pt notes she did really well with her botox injection and she feels like now her time is prolonged between voids, She had the botox September 27. She reports the botox usually last for 6 months. She is staying pretty dry during the day. PT-OP-I Pelvic Floor Start: 06/22/23 07:56 Freq: Status: Active Protocol: Document 06/24/23 08:39 [facility] (Rec: 06/24/23 08:50 [facility] [id number]) Pelvic Floor Assessment Urine Pelvic Floor Surgery Yes: TVH w/BSO, A&P repair Urinary Symptoms Urge Sensation Other Urinary Symptoms pt will leak upon walking to the toilet, history of UTI's, nocturia Leakage Size Medium Leakage Cause Urge Nocturia 4 Urine Pad Type Maxi Pad Pelvic Clock Pelvic Clock 12-3 Atrophy Pelvic Clock 3-6 Atrophy Pelvic Clock 6-9 Atrophy Pelvic Clock 9-12 Atrophy Contraction Ability Voluntary Contraction Weak Manual Muscle Testing Left 2 Manual Muscle Testing Right 2 Manual Muscle Testing Anterior 1 Manual Muscle Testing Posterior 2 Muscle Endurance (Seconds) 4 PT-OP-T Assessment and Plan Start: 06/22/23 07:56 Freq: Status: Active Protocol: Document 10/20/23 12:04 [facility] (Rec: 10/20/23 12:52 [facility] [id number]) Physical Therapy Assessment Goals 4 Impairment Decreased pelvic floor endurance Short Term Goal (STG) Jeff is able to sustain a pelvic floor contraction x 10 seconds in the supine position Good progress STG Duration 5 weeks Commercial Service Technician Goal (LTG) Jeff is able to contract her pelvic floor in standing and maintain a contraction x 5 seconds or more improving ability and Jeff is working on pelvic floor contractions with sit-stand LTG Duration 8 weeks 3 Impairment pelvic floor weakness s/p TVH w/BSO and Anterior posterior repair Commercial Service Technician Goal (LTG) Jeff is able to increase her pelvic floor strength by 1 muscle grade with MMT good progress LTG Duration 8 weeks 2 Impairment Urinary urgency and frequency complaints Short Term Goal (STG) jeff is educated on proper hydration and bladder irritants, bladder retraining and urge deference technique goal met STG Duration 3 weeks Commercial Service Technician Goal (LTG) Jeff reports a reduction in urinary urgency and frequency and is able to increase her water intake during the day During the day symptoms have improved and Jeff is working on increasing her water intake, night time symptoms are also much better. There have been nights where she is sleeping all night LTG Duration 8 weeks 1 Impairment Nocturia with pt waking up 4 times per night to void and pt voids frequently during the day just in case Nursing Home Goal (LTG) Jeff has overall decreased complaints of nocturia and is only waking 1-2 times per night to void there has been some change as she has been sleeping through her alarm and not leaking when she doesn't get up during the night LTG Duration 8 weeks Assessment Summary Assessment Jeff has been working on pelvic floor strengthening and also underwent botox to the bladder. She is feeling improvements and decreasing complaints of urgency and frequency as well as decreased leakage. Jeff would like a follow up visit in PT in 2 months to recheck her strength and HEP Physical Therapy Plan Frequency and Duration Frequency of Treatment Every Other Week Duration of treatment (weeks) 8 Plan of Care Start Date 10/20/23 Plan of Care End Date 12/22/23 Therapeutic Interventions Therapeutic Interventions Home Exercise Program,Self- Care/Home Management, Therapeutic Exercises Modalities Biofeedback Next Visit Focus/Plan Next Note Type Treatment Note Next Visit Plan recheck on nocturia symptoms following botox for the bladder, review new exercises that we worked on today for core stabilization and hip strengthening.
--- NOTE | 2023-12-21 13:43 | PT.OTN ---
Current Diagnoses Urge incontinence (12/21/23) Pelvic muscle wasting (12/21/23) Nocturia (12/21/23) Physical Therapy Treatment Note PT-OP-A Visit Information Start: 06/22/23 07:56 Freq: Status: Active Protocol: Document 12/21/23 13:00 [facility] (Rec: 12/23/23 13:41 [facility] [id number]) Out-Patient Physical Therapy Visit Information Visit Information Visit Type Treatment Note Visit Start Time 13:00 Visit Stop Time 13:45 Visit Number 5 PT-OP-B Current Condition Start: 06/22/23 07:56 Freq: Status: Active Protocol: Document 06/22/23 14:50 [facility] (Rec: 06/22/23 15:36 [facility] [id number]) Current Condition History of Current Condition Onset Date February 2023 Current Complaints urinary urgency, nocturia and leaking at night History of Current Condition pt's had a heart attact and he had stents put in but now he has dialasis 3 times per week so Jeff is taking care of his pills and getting him to his appointments. She underwent a AP prepair and hysterectomy the end of February. She is able to control the leakage during the day. She is voiding a great amount and does experience urinary urgency. She sets a alarm for a few hours after she goes to sleep to get up to void as she was leaking. She has had a couple of UTI's since her surgery. Her last UTI was a month ago. Pt reports fecal smearing with wiping. Pt notes she does not drink much water during the day. Jeff reports she does have estrogen cream but has not used it yet PT-OP-C Subjective Start: 06/22/23 07:56 Freq: Status: Active Protocol: Document 12/21/23 13:00 [facility] (Rec: 12/21/23 13:47 [facility] [id number]) OP-PT Subjective Patient Comments Patient Comments Jeff notes she continues to do well post botox and she is able to prolong her time between voids. She does tend to go to the bathroom prior to leaving the house. She is now letting her bladder wake her up at night verses setting a alarm to wake her up. She is doing the urge technique and is doing her exercises. She is keeping pretty dry with the exception of being somewhere without a bathroom. Patient Reported Progress Improving PT-OP-I Pelvic Floor Start: 06/22/23 07:56 Freq: Status: Active Protocol: Document 06/24/23 08:39 [facility] (Rec: 06/24/23 08:50 [facility] [id number]) Pelvic Floor Assessment Urine Pelvic Floor Surgery Yes: TVH w/BSO, A&P repair Urinary Symptoms Urge Sensation Other Urinary Symptoms pt will leak upon walking to the toilet, history of UTI's, nocturia Leakage Size Medium Leakage Cause Urge Nocturia 4 Urine Pad Type Maxi Pad Pelvic Clock Pelvic Clock 12-3 Atrophy Pelvic Clock 3-6 Atrophy Pelvic Clock 6-9 Atrophy Pelvic Clock 9-12 Atrophy Contraction Ability Voluntary Contraction Weak Manual Muscle Testing Left 2 Manual Muscle Testing Right 2 Manual Muscle Testing Anterior 1 Manual Muscle Testing Posterior 2 Muscle Endurance (Seconds) 4 PT-OP-Q Treatments Start: 06/22/23 07:56 Freq: Status: Active Protocol: Document 12/21/23 13:00 [facility] (Rec: 12/21/23 13:47 [facility] [id number]) Therapeutic Exercises Supine Exercises bridges Supine Exercise Name HEP Reps/Minutes 2 x 10 reps hip roll outs Reps/Minutes x 20 reps pelvic floor quick flicks Reps/Minutes 2 sec on 2 sec off x 10 reps pelvic floor long holds Reps/Minutes x 10 reps hold x 10 seconds and relax x 10 seconds Standing Exercises standing hip abduction Reps/Minutes 2 x 10 reps standing mini squats Reps/Minutes 2 x 10 reps Comments with pelvic floor engagement on the return to stand standing door way stretch Reps/Minutes holding 30 seconds standing scapula squeeze Reps/Minutes x 10 reps PT-OP-T Assessment and Plan Start: 06/22/23 07:56 Freq: Status: Active Protocol: Document 12/21/23 13:00 [facility] (Rec: 12/21/23 13:47 [facility] [id number]) Physical Therapy Assessment Goals 4 Impairment Decreased pelvic floor endurance Short Term Goal (STG) Jeff is able to sustain a pelvic floor contraction x 10 seconds in the supine position Good progress STG Duration 5 weeks [facility] Goal (LTG) Jeff is able to contract her pelvic floor in standing and maintain a contraction x 5 seconds or more improving ability and Jeff is working on pelvic floor contractions with sit-stand LTG Duration 8 weeks 3 Impairment pelvic floor weakness s/p TVH w/BSO and Anterior posterior repair Optimization Engineer Goal (LTG) Jeff is able to increase her pelvic floor strength by 1 muscle grade with MMT good progress LTG Duration 8 weeks 2 Impairment Urinary urgency and frequency complaints Short Term Goal (STG) jeff is educated on proper hydration and bladder irritants, bladder retraining and urge deference technique goal met STG Duration 3 weeks [facility] Goal (LTG) Jeff reports a reduction in urinary urgency and frequency and is able to increase her water intake during the day During the day symptoms have improved and Jeff is working on increasing her water intake, night time symptoms are also much better. There have been nights where she is sleeping all night LTG Duration 8 weeks 1 Impairment Nocturia with pt waking up 4 times per night to void and pt voids frequently during the day just in case [facility] Goal (LTG) Jeff has overall decreased complaints of nocturia and is only waking 1-2 times per night to void there has been some change as she has been sleeping through her alarm and not leaking when she doesn't get up during the night LTG Duration 8 weeks Assessment Summary Assessment Jeff is independent with her home program at this time and is feeling that overall both the exercises as well as the botox injections in the bladder have helped decrease her symptoms. She will be discharged from PT at his time Physical Therapy Plan Discharge Physical Therapy Discharge Reasons Goals Met
== END 2023-12-29 10:48 | disposition home or self-care (01) ==
LOC: PHYS 13:00
PROVIDERS: Family Provider Internal Medicine; PCP Internal Medicine; Referring Provider Obstetrics & Gynecology; Visit Provider Obstetrics & Gynecology
DX: N39.41 Urge incontinence (principal); N81.84 Pelvic muscle wasting; R35.1 Nocturia
CPT/HCPCS: 97110; 97161; 97535

== ENCOUNTER → 2023-12-28 11:41 | Outpatient (CLI) | payer MEDICARE, OTHER, SELFPAY ==
[2023-03-18 16:01] VITALS: BMI 23.2
--- NOTE | 2023-12-28 | DI.MRI.S_ITS ---
BREAST MRI OF BOTH BREASTS: 12/28/2023 CLINICAL: Breast cancer. Short follow up. Comparison is made to exams dated: 06/23/2023 breast MRI, 12/23/2022 mammogram, 12/18/2021 mammogram, 12/04/2020 breast MRI, 07/15/2023 ultrasound, and 07/15/2023 ultrasound - [facility]. INDICATIONS: HX OF BREAST CANCER TECHNIQUE: The patient was placed prone in a dedicated breast imaging coil. Precontrast axial STIR and 3D FLASH without fat saturation sequences were obtained. Both before and after bolus injection of contrast, sequential 1-minute axial 3D FLASH with fat saturation sequences for 3 time points, with subtraction images and maximum intensity projections (MIP's) generated. Delayed sagittal FLASH images with fat saturation were also obtained. Computer-aided detection, including computer algorithm analysis of MRI image data for lesion detection and characterization, pharmacokinetic analysis, with further physician review for interpretation, was performed. FINDINGS: Image quality: Excellent. There is moderate background parenchymal enhancement. There are heterogeneous fibroglandular elements in both breasts. Right breast: 0.5 cm focus of contrast enhancement in the right breast 12 o'clock position approximately 6 cm from the nipple does not appear significantly changed when compared to the MRI from 06/23/2023. Kinetic assessment demonstrates rapid enhancement and mixed delayed kinetics. Additional scattered foci of contrast enhancement are seen in the breast that do not appear significantly changed when compared to the prior MRI. No new focus of contrast enhancement is seen. No axillary or internal mammary lymphadenopathy. Left breast: Postsurgical changes again seen with stable surgical clips and stable fat necrosis. 0.7 cm area of focal contrast enhancement in the left breast central nipple mid to posterior depth does not appear significantly changed when compared to the MRI from 06/23/2023. Kinetic curve assessment demonstrates moderate early enhancement with progressive delayed enhancement. Additional scattered foci of contrast enhancement are seen that also appear stable. No new focus of contrast enhancement. No axillary or internal mammary lymphadenopathy. Miscellaneous: Moderate hiatal hernia is again noted. Included portions of the anterior chest and upper abdomen otherwise demonstrate no significant abnormality. IMPRESSION: PROBABLY BENIGN 1. Stable subcentimeter foci of enhancement in the breast bilaterally, which do not appear significantly changed when compared to the MRI from 06/23/2023 but are new when compared to the MRI from 12/04/2020. No sonographic correlate was seen on prior second-look ultrasound. Findings likely represent background fibroglandular enhancement and are considered probably benign. 2. No suspicious axillary or internal mammary lymphadenopathy. BIRADS 3: Probably benign. Recommend follow-up breast MRI in 6 months to document stability. Additionally, patient is currently due for bilateral screening mammograms. This exam was interpreted at Station ID: [id number]. Electronically Signed By: Sanya Finley M.D. ar/:12/28/2023 17:07:17 letter sent: Followup Recommended ACR BI-RADS Category 3: Probably benign [id number]
== END ==
LOC: MRI 11:41
PROVIDERS: Family Provider Internal Medicine; PCP Internal Medicine; Referring Provider Internal Medicine; Visit Provider Internal Medicine
DX: R92.8 Other abnormal and inconclusive findings on diagnostic imaging of breast (principal); Z85.3 Personal history of malignant neoplasm of breast
CPT/HCPCS: 77049; A9579

== ENCOUNTER → 2024-02-22 13:45 | Outpatient (CLI) | payer MEDICARE, OTHER, SELFPAY ==
[2023-03-18 16:01] VITALS: BMI 23.2
--- NOTE | 2024-02-22 13:46 | DI.MG.S_ITS ---
BILATERAL DIGITAL SCREENING MAMMOGRAM 3D/2D WITH CAD POST LUMPECTOMY: 02/22/2024 CLINICAL: Routine screening. Personal history of left breast cancer. Fsmily History of Breast Cancer. Comparison is made to exams dated: 12/28/2023 breast MRI, 06/23/2023 breast MRI, 12/23/2022 mammogram, 12/18/2021 mammogram, and 12/11/2019 mammogram - [facility]. Both breasts are heterogeneously dense, which may obscure small masses (category c / 51-75% glandular tissue). Current study was also evaluated with a Computer Aided Detection (CAD) system. There are benign vascular calcifications in the left breast. There also is a biopsy clip in the right breast. Additionally, there are benign post operative findings in the left breast. No significant masses, calcifications, or other findings are seen in either breast. There has been no significant interval change. IMPRESSION: BENIGN There is no mammographic evidence of malignancy. A 1 year screening mammogram is recommended. Future imaging is recommended as follows: 06/28/2024 breast MRI. This exam was interpreted at Station ID: [id number]. NOTE: For mammograms, a report in lay terms will be sent to the patient. Approximately 15% of breast malignancies will not be visualized mammographically. In the management of a palpable breast mass, a negative mammogram must not discourage biopsy of a clinically suspicious lesion. Electronically Signed By: Sanya shen/denisa:02/22/2024 16:01:35 letter sent: Normal Exam ACR BI-RADS Category 2: Benign Finding(s) [id number]
== END ==
LOC: MAMMO 13:46
PROVIDERS: Family Provider Internal Medicine; PCP Internal Medicine; Referring Provider Internal Medicine; Visit Provider Internal Medicine
DX: Z12.31 Encounter for screening mammogram for malignant neoplasm of breast (principal); Z85.3 Personal history of malignant neoplasm of breast; Z80.3 Family history of malignant neoplasm of breast; R92.333 Mammographic heterogeneous density, bilateral breasts
CPT/HCPCS: 77063; 77067

== ENCOUNTER 2024-04-27 11:15 | Outpatient (RCR) | payer MEDICARE, OTHER, SELFPAY ==
[2023-03-18 16:01] VITALS: BMI 23.2
--- NOTE | 2024-02-15 15:44 | PT.OIE ---
Current Diagnoses Posterior tibial tendinitis, right leg (02/15/24) Other lack of coordination (02/15/24) Weakness (02/15/24) Past Medical History (Last Updated 03/17/23 @ 08:30 by Moriah Shaikh RN) Breast cancer (~1995) Visit Care Team Role Provider Type CHANDU Reynolds Family Provider Advanced Quality Assurance Engineer Primary Care Provider Specialty: Family Practice Address: [address] [place] [address], [facility] [place], [address] Email: [email or web address] Chidi Smith DPM Attending Provider Non-Staff Referring Provider Specialty: Podiatry Address: [address] [place] [address], [id number] Email: Physical Therapy Initial Evaluation PT-OP-A Visit Information Start: 02/15/24 13:46 Freq: Status: Active Protocol: Document 02/15/24 13:46 NM (Rec: 02/15/24 16:38 NM [id number]) Out-Patient Physical Therapy Visit Information Visit Information Visit Type Initial Evaluation Visit Start Time 13:45 Visit Stop Time 14:30 Visit Number 1 PT-OP-B Current Condition Start: 02/15/24 13:46 Freq: Status: Active Protocol: Document 02/15/24 13:46 NM (Rec: 02/15/24 16:38 NM [id number]) Current Condition History of Current Condition Onset Date a couple months Current Complaints pain, poor balance, weakness, decreased mobility History of Current Condition Pt presents with R medial ankle/foot pain beginning a couple of months ago. Pt has no known PATI. She has been to Dr. Smith (equipment [facility]) and dx with posterior tibial tendonitis. Pt prescribed new inserts, has new shoes, and given a topical cream (volter and biofreeze) to assist with pain. She reports that her pain is getting better overall but has not resolved; next step is steroid injection, which pt wants to avoid. 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 She is unable to walk more than 30-45 minutes due to pain in her ankle, even with new orthotics . She states that pain is worse in mornings after she has been moving around for a while. 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 Pt has had a few falls where she loses her balance. Treatment Goals Patient/Caregiver Goals decrease symptoms, goes away PT-OP-C Subjective Start: 02/15/24 13:46 Freq: Status: Active Protocol: Document 02/15/24 13:46 NM (Rec: 02/15/24 16:38 NM [id number]) OP-PT Subjective Patient Comments Patient Comments see hx above for pt report Patient Questionnaires Foot & Ankle Ability Measure- ADL and Sports FAAM-ADL Score 57/84 FAAM-Sport Score 8/32 Lower Extremity Functional Scale LEFS Score 49/80 OP-PT Pain Assessment Location R ankle/foot Pain Location Details medial ankle (ant below med mall) Intensity 3 Scale Used Numeric (0 - 10) Description Sharp Description- Other worst 5/10 Pain Aggravating Factors ADL's,Exercise,Standing, Walking Pain Alleviating Factors Rest PT-OP-D Balance Start: 02/15/24 13:46 Freq: Status: Active Protocol: Document 02/15/24 13:46 NM (Rec: 02/15/24 16:38 NM [id number]) Balance Tests Single Limb Standing Single Limb- Right 3 seconds with 1/10 medial ankle pain Single Limb- Left 5 seconds Tandem Tandem Standing 5 seconds, difficulty achieving/maintaining, painful PT-OP-E Functional Tests Start: 02/15/24 13:46 Freq: Status: Active Protocol: Document 02/15/24 13:46 NM (Rec: 02/15/24 16:38 NM [id number]) Functional Tests Five Times Sit to Stand Test Score 13 seconds Comments no pain but demos increased pronation, decreased DF PT-OP-F Manual Assessment Start: 02/15/24 13:46 Freq: Status: Active Protocol: Document 02/15/24 13:46 NM (Rec: 02/15/24 16:38 NM [id number]) Manual Assessments Soft Tissue Assessment Soft Tissue Mobility Assessment Minimal swelling at medial ankle below medial malleolus, minimal arch lift. Joint Mobility Assessment Joint Mobility Assessment No ankle instability. Reports minimal medial ankle pain with passive ankle inversion with dorsiflexion/plantarflexion. Decreased toe extension bilaterally, regi great toe. R navicular drop > L navicular drop. Pt has >3 toes on lateral bilaterally visible from posterior view PT-OP-G Mobility & Gait Start: 02/15/24 13:46 Freq: Status: Active Protocol: Document 02/15/24 13:46 NM (Rec: 02/15/24 16:38 NM [id number]) OP Gait Assessment Gait Gait Assistance Required: Independent Distance (Feet) 150 Assistive Devices Assistive Device None Gait Deviations General Gait Pattern Antalgic,Decreased Stride Length Factors Limiting Gait Function Factors Limiting Gait Function Decreased Activity Tolerance, Decreased Strength,Limited Range of Motion,Pain Comments Gait Comments Decreased stance time RLE PT-OP-H Neuro Start: 02/15/24 13:46 Freq: Status: Active Protocol: Document 02/15/24 13:46 NM (Rec: 02/15/24 16:38 NM [id number]) Sensation Evaluation Comments Summary Comments BLE equally intact to light touch sensation PT-OP-J Posture/Palpation/Skin Start: 02/15/24 13:46 Freq: Status: Active Protocol: Document 02/15/24 13:46 NM (Rec: 02/15/24 16:38 NM [id number]) Posture Evaluation Position Standing Head/C-Spine Posture Forward Head T-Spine Posture Increased Kyphosis L-Spine Posture Increased Lordosis Hip Posture (L) Externally Rotated,(R) Externally Rotated Knee Posture (L) Genu Valgus,(R) Genu Valgus Patellar Posture (L) Superior,(R) Superior Ankle/Foot Posture (L) Pronated,(R) Pronated,(L) Calcaneal Eversion,(R) Calcaneal Eversion Foot Arch (L) Low Arch,(R) Low Arch Toe Posture (L) Flexed Toes,(R) Flexed Toes Comments Posture Comments R truncal shift at shoulders, L pelvis shift Palpation Assessment Location R foot/ankle Palpation Location medial ankle Palpation Findings Soft Tissue Tightness, Tenderness Palpation Details Tenderness and slight swelling at posterior tibialis tendon below medial malleolus. Tenderness anterior and posterior to medial malleolus, navicular. No tenderness of malleoli, fibula or tibia PT-OP-K Range of Motion Start: 02/15/24 13:46 Freq: Status: Active Protocol: Document 02/15/24 13:46 NM (Rec: 02/15/24 16:38 NM [id number]) Hip Goniometric Range of Motion Hip Right Flexion w/Knee Flexed 120 Internal Rotation 25 External Rotation 30 Left Flexion w/Knee Flexed 115 Internal Rotation 30 External Rotation 35 Knee Goniometric Range of Motion Knee Right Flexion Active (degrees) 130 Extension Active (degrees) 0 Left Flexion Active (degrees) 125 Extension Active (degrees) 0 Ankle and Foot Goniometric Range of Motion Ankle and Foot Right Dorsiflexion with Knee Flexed 10 Plantarflexion 40 Inversion 10 Eversion 10 Comments pain with all motions, natural position slightly inverted in sitting Left Dorsiflexion with Knee Flexed 8 Plantarflexion 35 Inversion 15 Eversion 10 PT-OP-L Special Tests Start: 02/15/24 13:46 Freq: Status: Active Protocol: Document 02/15/24 13:46 NM (Rec: 02/15/24 16:38 NM [id number]) Special Tests Foot/Ankle Special Tests Talar tilt Test Results - Anterior drawer Test Results - PT-OP-M Strength Start: 02/15/24 13:46 Freq: Status: Active Protocol: Document 02/15/24 13:46 NM (Rec: 02/15/24 16:38 NM [id number]) Hip Strength Hip Manual Muscle Testing Right Flexion (L2) 4 Good Extension (S1) 4- Good- Abduction 4- Good- External Rotation 4 Good Internal Rotation 4 Good Left Flexion (L2) 4 Good Extension (S1) 4- Good- Abduction 4- Good- External Rotation 4 Good Internal Rotation 4 Good Knee Strength Knee Manual Muscle Testing Right Flexion (S2) 4 Good Extension (L3) 4 Good Left Flexion (S2) 4 Good Extension (L3) 4 Good Ankle/Foot Strength Ankle and Foot Manual Muscle Testing Right Dorsiflexion (L4) 4 Good Inversion 4- Good- Eversion (S1) 4- Good- Comments Minimal pain with resisted DF/ PF/Inversion 2 single leg heel raise, pain along medial ankle with heel raise 10 bilateral heel raises, no pain Left Dorsiflexion (L4) 4+ Good+ Inversion 4+ Good+ Eversion (S1) 4+ Good+ Comments 5 single leg heel raises 10 bilateral heel raises PT-OP-Q Treatments Start: 02/15/24 13:46 Freq: Status: Active Protocol: Document 02/15/24 13:46 NM (Rec: 02/15/24 16:38 NM [id number]) Therapeutic Exercises Sitting Exercises arch raises Side right Equipment Used towel on ground Reps/Minutes 1x10 with 5 Comments cued to maintain heel and metatarsals on ground, perform w/o toe flexion Self-Care/Home Management Treatment Education Patient Education Home Exercise Program,Pain Management Other Education 8 minutes: Extensive education tendonitis, ankle extrinsic and intrinsic muscles, and on activity modification with rest and to reduce aggravating activities. Educated pt on modalities (e.g. ice) with leg elevation for pain reduction with timing, especially when pt feels concordant symptoms PT-OP-T Assessment and Plan Start: 02/15/24 13:46 Freq: Status: Active Protocol: Document 02/15/24 13:46 NM (Rec: 02/15/24 16:38 NM [id number]) Physical Therapy Assessment Goals 5 Impairment strength Impairment R ankle strength DF 4/5, inversion/eversion 4-/5 MMT Short Term Goal (STG) Pt will improve R global ankle strength to at least 4/5 MMT in order to demonstrate improved ankle strength for stability and gait STG Duration 6 weeks Power Shovel Operator Helper Goal (LTG) Pt will improve R global ankle strength to at least 4+/5 MMT in order to demonstrate improved ankle strength for stability and gait LTG Duration 12 weeks 4 Impairment function Impairment stand/ambulate 30-45 min Short Term Goal (STG) Pt will report that she is able to stand/ambulate at least 30 minutes with R ankle/ foot pain <3/10 in order to demonstrate improved symptom management and activity tolerance STG Duration 6 weeks Power Shovel Operator Helper Goal (LTG) Pt will report that she is able to stand/ambulate at least 45 minutes with R ankle/ foot pain <3/10 in order to demonstrate improved symptom management and activity tolerance LTG Duration 12 weeks 3 Impairment strength Impairment B hip abd and ext strength 4-/ 5 Short Term Goal (STG) Pt will increase B hip abduction and extension MMT to at least 4/5 in order to improve hip stability during stance and to reduce ankle pronation during gait STG Duration 6 weeks Power Shovel Operator Helper Goal (LTG) Pt will increase B hip abduction and extension MMT to at least 4+/5 in order to improve hip stability during stance and to reduce ankle pronation during gait LTG Duration 12 weeks 2 Impairment ROM Impairment R ankle dorsiflexion 10 deg Short Term Goal (STG) Pt will increase R ankle dorsiflexion to at least 12 deg in order to reduce pronation during gait and improve ankle mobility during stance STG Duration 6 weeks Usp Goal (LTG) Pt will increase R ankle dorsiflexion to at least 15 deg in order to reduce pronation during gait and improve ankle mobility during stance LTG Duration 12 weeks 1 Impairment HEP Impairment not performing HEP Short Term Goal (STG) Pt will report compliance with HEP at least 2-3x/wk in order to maximize progressions from PT sessions STG Duration 6 weeks Power Shovel Operator Helper Goal (LTG) Pt will report compliance with HEP at least 3x/wk in order to smoothly transition into maintenance program after discharge from PT LTG Duration 12 weeks Assessment Summary Assessment Pt is an 84 y.o. female presenting with R medial ankle /foot pain consistent with dx of posterior tibialis tendonitis. Pt has improvement in symptoms since onset earlier in 2023; however, she continues to be limited in her ability to participate in ADLs/IADLs including standing, gait, and stairs due to pain. Pt has increased pain symptoms with single leg plantarflexion, resisted inversion/dorsiflexion and inversion/plantarflexion. Pain is reproduced with single leg heel raise. She is tender to palpation along her R navicular bone and has slight edema along her posterior tibialis tendon below the medial malleolus. Her posture demonstrate increased B hip external rotation, B ankle pronation with positive too many toes sign and limited ankle dorsiflexion AROM. Pt has decreased B hip abduction/ extension and quad strength bilaterally. No ligamentous instability. Pt also has limitations in global R ankle AROM. Pt also has decreased balance when KAT reduce, likely related to neuropathy/ pain and which contributes to falls. PT educated pt on exam findings, dx, activity modification, modalities, plan of care, and provided initial HEP with foot intrinsics to improve arch support. 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 PT and pt discussed purpose and importance of HEP in addition to activity modification in order to maximize progression with PT; pt verbalizes understanding. Pt would benefit from skilled PT in order to improve R ankle mobility, decrease pain symptoms, and improve activity tolerance in order to increase QOL. Physical Therapy Plan Frequency and Duration Frequency of Treatment 1-2x/wk Duration of treatment (weeks) 12 Plan of Care Start Date 02/15/24 Plan of Care End Date 05/12/24 Therapeutic Interventions Therapeutic Interventions Balance Training,Coordination Training,Gait Training,Home Exercise Program,Joint Mobilizations,Manual Therapy, Neuromuscular Re-education, Orthotic/Prosthetic Management ,Patient/Caregiver Education, Self-Care/Home Management, Sensory Integration,Soft Tissue Mobilization,Taping, Therapeutic Activities, Therapeutic Exercises Modalities Biofeedback,Cold Pack/Ice Massage,Electric Stimulation, Hot Packs,Ultrasound, Vasopneumatic Devices Next Visit Focus/Plan Next Note Type Treatment Note Next Visit Plan Provide good HEP due to limited # visits Next session: short arch raises, ankle isometrics vs banded eccentrics, G/S/1st toe stretch, hip abduction ( seated clam, STS), B heel raise with ball
--- NOTE | 2024-04-27 12:12 | PT.OTN ---
Current Diagnoses Posterior tibial tendinitis, right leg (04/27/24) Other lack of coordination (04/27/24) Weakness (04/27/24) Physical Therapy Treatment Note PT-OP-A Visit Information Start: 02/15/24 13:46 Freq: Status: Active Protocol: Document 04/27/24 11:18 NM (Rec: 04/27/24 12:12 NM [id number]) Out-Patient Physical Therapy Visit Information Visit Information Visit Type Discharge Summary Visit Start Time 11:19 Visit Stop Time 12:00 Visit Number 2 PT-OP-B Current Condition Start: 02/15/24 13:46 Freq: Status: Active Protocol: Document 02/15/24 13:46 NM (Rec: 02/15/24 16:38 NM [id number]) Current Condition History of Current Condition Onset Date a couple months Current Complaints pain, poor balance, weakness, decreased mobility History of Current Condition Pt presents with R medial ankle/foot pain beginning a couple of months ago. Pt has no known PATI. She has been to Dr. Smith (general dentist) and dx with posterior tibial tendonitis. Pt prescribed new inserts, has new shoes, and given a topical cream (volter and biofreeze) to assist with pain. She reports that her pain is getting better overall but has not resolved; next step is steroid injection, which pt wants to avoid. 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 She is unable to walk more than 30-45 minutes due to pain in her ankle, even with new orthotics . She states that pain is worse in mornings after she has been moving around for a while. 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 Pt has had a few falls where she loses her balance. Treatment Goals Patient/Caregiver Goals decrease symptoms, goes away PT-OP-C Subjective Start: 02/15/24 13:46 Freq: Status: Active Protocol: Document 04/27/24 11:18 NM (Rec: 04/27/24 12:12 NM [id number]) OP-PT Subjective Patient Comments Patient Comments Pt's passed in February, so she has been overwhelmed and not attended PT since evaluation in January. Pt went to general dentist and has appt tomorrow again. She reports that she no longer has R ankle tendonitis. PT-OP-D Balance Start: 02/15/24 13:46 Freq: Status: Active Protocol: Document 02/15/24 13:46 NM (Rec: 02/15/24 16:38 NM [id number]) Balance Tests Single Limb Standing Single Limb- Right 3 seconds with 1/10 medial ankle pain Single Limb- Left 5 seconds Tandem Tandem Standing 5 seconds, difficulty achieving/maintaining, painful PT-OP-E Functional Tests Start: 02/15/24 13:46 Freq: Status: Active Protocol: Document 02/15/24 13:46 NM (Rec: 02/15/24 16:38 NM [id number]) Functional Tests Five Times Sit to Stand Test Score 13 seconds Comments no pain but demos increased pronation, decreased DF PT-OP-F Manual Assessment Start: 02/15/24 13:46 Freq: Status: Active Protocol: Document 02/15/24 13:46 NM (Rec: 02/15/24 16:38 NM [id number]) Manual Assessments Soft Tissue Assessment Soft Tissue Mobility Assessment Minimal swelling at medial ankle below medial malleolus, minimal arch lift. Joint Mobility Assessment Joint Mobility Assessment No ankle instability. Reports minimal medial ankle pain with passive ankle inversion with dorsiflexion/plantarflexion. Decreased toe extension bilaterally, regi great toe. R navicular drop > L navicular drop. Pt has >3 toes on lateral bilaterally visible from posterior view PT-OP-G Mobility & Gait Start: 02/15/24 13:46 Freq: Status: Active Protocol: Document 02/15/24 13:46 NM (Rec: 02/15/24 16:38 NM [id number]) OP Gait Assessment Gait Gait Assistance Required: Independent Distance (Feet) 150 Assistive Devices Assistive Device None Gait Deviations General Gait Pattern Antalgic,Decreased Stride Length Factors Limiting Gait Function Factors Limiting Gait Function Decreased Activity Tolerance, Decreased Strength,Limited Range of Motion,Pain Comments Gait Comments Decreased stance time RLE PT-OP-H Neuro Start: 02/15/24 13:46 Freq: Status: Active Protocol: Document 02/15/24 13:46 NM (Rec: 02/15/24 16:38 NM [id number]) Sensation Evaluation Comments Summary Comments BLE equally intact to light touch sensation PT-OP-J Posture/Palpation/Skin Start: 02/15/24 13:46 Freq: Status: Active Protocol: Document 02/15/24 13:46 NM (Rec: 02/15/24 16:38 NM [id number]) Posture Evaluation Position Standing Head/C-Spine Posture Forward Head T-Spine Posture Increased Kyphosis L-Spine Posture Increased Lordosis Hip Posture (L) Externally Rotated,(R) Externally Rotated Knee Posture (L) Genu Valgus,(R) Genu Valgus Patellar Posture (L) Superior,(R) Superior Ankle/Foot Posture (L) Pronated,(R) Pronated,(L) Calcaneal Eversion,(R) Calcaneal Eversion Foot Arch (L) Low Arch,(R) Low Arch Toe Posture (L) Flexed Toes,(R) Flexed Toes Comments Posture Comments R truncal shift at shoulders, L pelvis shift Palpation Assessment Location R foot/ankle Palpation Location medial ankle Palpation Findings Soft Tissue Tightness, Tenderness Palpation Details Tenderness and slight swelling at posterior tibialis tendon below medial malleolus. Tenderness anterior and posterior to medial malleolus, navicular. No tenderness of malleoli, fibula or tibia PT-OP-K Range of Motion Start: 02/15/24 13:46 Freq: Status: Active Protocol: Document 04/27/24 11:18 NM (Rec: 04/27/24 12:12 NM [id number]) Ankle and Foot Goniometric Range of Motion Ankle and Foot Right Dorsiflexion with Knee Flexed 10 Plantarflexion 40 Inversion 10 Eversion 10 Comments pain with all motions, natural position slightly inverted in sitting 04/27/24: 20 deg eversion, 10 deg dorsiflexion, 40 deg plantarflexion, 35 deg inversion Left Dorsiflexion with Knee Flexed 8 Plantarflexion 35 Inversion 15 Eversion 10 PT-OP-L Special Tests Start: 02/15/24 13:46 Freq: Status: Active Protocol: Document 02/15/24 13:46 NM (Rec: 02/15/24 16:38 NM [id number]) Special Tests Foot/Ankle Special Tests Talar tilt Test Results - Anterior drawer Test Results - PT-OP-M Strength Start: 02/15/24 13:46 Freq: Status: Active Protocol: Document 04/27/24 11:18 NM (Rec: 04/27/24 12:12 NM [id number]) Hip Strength Hip Manual Muscle Testing Right Flexion (L2) 4 Good Extension (S1) 4- Good- Abduction 4- Good- External Rotation 4 Good Internal Rotation 4 Good Comments 04/27/24: no change since evaluation Ankle/Foot Strength Ankle and Foot Manual Muscle Testing Right Dorsiflexion (L4) 4 Good Inversion 4- Good- Eversion (S1) 4- Good- Comments Minimal pain with resisted DF/ PF/Inversion 2 single leg heel raise, pain along medial ankle with heel raise 10 bilateral heel raises, no pain 04/27/24: 4+/5, pain free;3x10 B heel raises w/o pain Left Dorsiflexion (L4) 4+ Good+ Inversion 4+ Good+ Eversion (S1) 4+ Good+ Comments 5 single leg heel raises 10 bilateral heel raises PT-OP-Q Treatments Start: 02/15/24 13:46 Freq: Status: Active Protocol: Document 04/27/24 11:18 NM (Rec: 04/27/24 12:12 NM [id number]) Therapeutic Exercises Sitting Exercises great toe extension stretch Side right Reps/Minutes 1x30 Comments limited mobility ankle inversion and eversion Side right Resistance lvl 2 band Reps/Minutes 3x10 ea Comments pain free ankle dorsiflexion Side right Resistance lvl 2 band Reps/Minutes 3x10 Comments pain free arch raises Sitting Exercise Name HEP review Side right Reps/Minutes 2 reps Comments improved form but challenging still Standing Exercises calf stretch Standing Exercise Name gastrocnemius Side bilateral Equipment Used staggered stance, with hand support Reps/Minutes 1x60 ankle plantarflexion Side bilateral Equipment Used hand support Reps/Minutes 3x10 Comments pain free great toe extension Standing Exercise Name rocking into ext for mobilization Side right Equipment Used hand support for balance Reps/Minutes 20 Comments pain free but limited mobility Self-Care/Home Management Treatment Education Patient Education Home Exercise Program,Joint Protection,Pain Management Other Education 8 minutes - Education on shoe choice with emphasis on wide toe box, supportive heels, active shoes for joint protection. Educated on maintenance HEP, foot intrinsic/extrinsics for ankle and foot strengthening as part of maintenance program. Continue with pain management techniques as needed PT-OP-T Assessment and Plan Start: 02/15/24 13:46 Freq: Status: Active Protocol: Document 04/27/24 11:18 NM (Rec: 04/27/24 12:12 NM [id number]) Physical Therapy Assessment Goals 5 Impairment strength Impairment R ankle strength DF 4/5, inversion/eversion 4-/5 MMT Short Term Goal (STG) Pt will improve R global ankle strength to at least 4/5 MMT in order to demonstrate improved ankle strength for stability and gait STG Duration 6 weeks Custodial Goal (LTG) Pt will improve R global ankle strength to at least 4+/5 MMT in order to demonstrate improved ankle strength for stability and gait 04/27/24: 4+/5 strength, pain free LTG Duration 12 weeks MET 4 Impairment function Impairment stand/ambulate 30-45 min Short Term Goal (STG) Pt will report that she is able to stand/ambulate at least 30 minutes with R ankle/ foot pain <3/10 in order to demonstrate improved symptom management and activity tolerance STG Duration 6 weeks Driver Helper Goal (LTG) Pt will report that she is able to stand/ambulate at least 45 minutes with R ankle/ foot pain <3/10 in order to demonstrate improved symptom management and activity tolerance 04/27/24: no issues with standing/walking due to foot, just lack of energy LTG Duration 12 weeks MET 3 Impairment strength Impairment B hip abd and ext strength 4-/ 5 Short Term Goal (STG) Pt will increase B hip abduction and extension MMT to at least 4/5 in order to improve hip stability during stance and to reduce ankle pronation during gait STG Duration 6 weeks Custodial Goal (LTG) Pt will increase B hip abduction and extension MMT to at least 4+/5 in order to improve hip stability during stance and to reduce ankle pronation during gait 04/27/24: no change since evaluation LTG Duration 12 weeks NOT MET 2 Impairment ROM Impairment R ankle dorsiflexion 10 deg Short Term Goal (STG) Pt will increase R ankle dorsiflexion to at least 12 deg in order to reduce pronation during gait and improve ankle mobility during stance STG Duration 6 weeks Custodial Goal (LTG) Pt will increase R ankle dorsiflexion to at least 15 deg in order to reduce pronation during gait and improve ankle mobility during stance 04/27/24: 10 deg ankle dorsiflexion LTG Duration 12 weeks NOT MET 1 Impairment HEP Impairment not performing HEP Short Term Goal (STG) Pt will report compliance with HEP at least 2-3x/wk in order to maximize progressions from PT sessions STG Duration 6 weeks Custodial Goal (LTG) Pt will report compliance with HEP at least 3x/wk in order to smoothly transition into maintenance program after discharge from PT 04/27/24: reports compliance with initial HEP daily; issued maintenance HEP 3x/wk LTG Duration 12 weeks MET Assessment Summary Assessment Pt tolerated session well and is able to perform all exercises without pain. Reviewed arch raises for continued foot intrinsic strengthening. Initiated right first toe mobility due to limited toe extension to improve gait mechanics and ankle mobility. Pt tolerated banded ankle exercises, standing calf raises and stretches well and without pain. PT cued pt for correct form. Educated pt on shoe choice with wider toe box. Physical Therapy Plan Frequency and Duration Frequency of Treatment 1-2x/wk Duration of treatment (weeks) 12 Plan of Care Start Date 02/15/24 Plan of Care End Date 05/12/24 Therapeutic Interventions Therapeutic Interventions Balance Training,Coordination Training,Gait Training,Home Exercise Program,Joint Mobilizations,Manual Therapy, Neuromuscular Re-education, Orthotic/Prosthetic Management ,Patient/Caregiver Education, Self-Care/Home Management, Sensory Integration,Soft Tissue Mobilization,Taping, Therapeutic Activities, Therapeutic Exercises Modalities Biofeedback,Cold Pack/Ice Massage,Electric Stimulation, Hot Packs,Ultrasound, Vasopneumatic Devices Discharge Physical Therapy Discharge Reasons Patient Request Discharge Comments No longer having issue in R ankle that she was referred for Next Visit Focus/Plan Next Note Type Treatment Note Next Visit Plan discharge from PT
== END 2024-05-03 12:52 | disposition home or self-care (01) ==
LOC: PHYS 11:15
PROVIDERS: Family Provider Internal Medicine; PCP Internal Medicine; Referring Provider Podiatrist; Visit Provider Podiatrist
DX: M76.821 Posterior tibial tendinitis, right leg (principal); R53.1 Weakness; R27.8 Other lack of coordination
CPT/HCPCS: 97110; 97161; 97535

== ENCOUNTER → 2024-08-26 11:08 | Outpatient (CLI) | payer MEDICARE, OTHER, SELFPAY ==
[2023-03-18 16:01] VITALS: BMI 23.2
[2024-08-26 11:54] LABS: Hemoglobin A1C% w Est Avg Glu 5.8 % (4.0-6.0)
[2024-08-26 12:18] LABS: Alanine Aminotransferase 13 IU/L (<35); Albumin 4.1 g/dL (3.5-5.0); Albumin Globulin Ratio 1.6 (1.0-2.8); Alkaline Phosphatase 70 U/L (38-126); Aspartate Aminotransferase 21 IU/L (14-36); Bilirubin Total 0.5 mg/dL (0.2-1.3); Blood Urea Nitrogen 20 mg/dL (7-17); Calcium 9.5 mg/dL (8.4-10.2); Carbon Dioxide 29 mmol/L (22-32); Chloride 105 mmol/L (98-107); Cholesterol 271 mg/dL (140-199); Estimated Glomerular Filt Rate > 60 mL/min (>60); Globulin 2.6 g/dL (1.7-4.1); Glucose 116 mg/dL (80-110); HDL Cholesterol 82 mg/dL (40-60); HEMOLYSIS < 15 (0-50); LDL Cholesterol Calculated 171 mg/dL (<100); Potassium 4.3 mmol/L (3.4-5.1); Sodium 138 mmol/L (137-145); Total Protein 6.7 g/dL (6.3-8.2); Triglycerides 91 mg/dL (35-150)
== END ==
PROVIDERS: Family Provider Internal Medicine; PCP Internal Medicine; Referring Provider Internal Medicine; Visit Provider Internal Medicine
DX: R73.9 Hyperglycemia, unspecified (principal); E78.5 Hyperlipidemia, unspecified; R42 Dizziness and giddiness
CPT/HCPCS: 36415; 80053; 80061; 83036

== ENCOUNTER → 2024-11-24 13:26 | Outpatient (CLI) | payer MEDICARE, OTHER, SELFPAY ==
[2023-03-18 16:01] VITALS: BMI 23.2
--- NOTE | 2024-11-24 13:28 | DI.MG.S_ITS ---
BILATERAL DIGITAL DIAGNOSTIC MAMMOGRAM 3D/2D: 11/24/2024 CLINICAL: Unable to have MRI done, ongoing left breast pain. History of left breast cancer. Comparison is made to exams dated: 02/22/2024 mammogram, 12/23/2022 mammogram, 12/18/2021 mammogram, and 12/28/2023 breast MRI - [facility]. The breasts are heterogeneously dense, which may obscure small masses (category c / 51-75% glandular tissue). No significant masses, calcifications, or other findings are seen in either breast. Benign vascular calcifications. Right breast biopsy clip. Left breast post-operative findings are stable. IMPRESSION: BENIGN There is no mammographic evidence of malignancy. No interval change seen. Patient is reportedly unable to tolerate recommended follow-up breast MRI. Recommend a targeted ultrasound instead, to evaluate for change in the previously seen enhancing regions. This exam was interpreted at Station ID: [id number]. NOTE: For mammograms, a report in lay terms will be sent to the patient. Approximately 15% of breast malignancies will not be visualized mammographically. In the management of a palpable breast mass, a negative mammogram must not discourage biopsy of a clinically suspicious lesion. Electronically Signed By: Fadi Kiran M.D. [facility] [place]/:11/24/2024 14:53:23 letter sent: Additional Imaging Needed ACR BI-RADS Category 2: Benign
--- NOTE | 2024-11-24 13:29 | DI.US.S_ITS ---
LIMITED ULTRASOUND OF RIGHT BREAST: 11/24/2024 CLINICAL: Abnormal MRI. Comparison is made to exams dated: 11/24/2024 mammogram, 02/22/2024 mammogram, 12/28/2023 breast MRI, 07/15/2023 ultrasound, 06/23/2023 breast MRI, and 12/04/2020 breast MRI - [facility]. Color flow and real-time ultrasound of the right breast 12 o'clock region were performed. Goode scale images of the real-time examination were reviewed. There is a stable benign 1.4 cm post-surgical scar with an indistinct margin in the right breast at 12 o'clock anterior depth. This post-surgical scar is hypoechoic. This correlates with mammography findings. Color flow imaging demonstrates that there is no vascularity present. IMPRESSION: BENIGN There is no sonographic evidence of malignancy. The stable 1.4 cm post-surgical scar in the right breast is benign. Patient declined repeat MRI to evaluate previously seen enhancing focus. This has the appearance of background parenchymal enhancement and is of low suspicion. Exam findings were discussed with the patient. Reviewed prior MRI findings with the patient. Patient denies significant change in the region of scaring. Joint decision making to return to screening mammogram. A 1 year screening mammogram is recommended. This exam was interpreted at Station ID: [id number]. Electronically Signed By: Fadi Kiran M.D. [facility] [place]/:11/24/2024 16:21:16 letter sent: Normal Exam ACR BI-RADS Category 2: Benign
--- NOTE | 2024-11-24 13:29 | DI.US.S_ITS ---
LIMITED ULTRASOUND OF LEFT BREAST: 11/24/2024 CLINICAL: Abnormal MRI. Comparison is made to exams dated: 11/24/2024 mammogram, 02/22/2024 mammogram, 12/28/2023 breast MRI, 07/15/2023 ultrasound, 06/23/2023 breast MRI, and 12/04/2020 breast MRI - [facility]. Color flow and real-time ultrasound of the left breast 3 o'clock region were performed. Goode scale images of the real-time examination were reviewed. There is a stable benign irregular post-surgical scar in the left breast at 3 o'clock posterior depth 10 cm from the nipple. This irregular post-surgical scar is hypoechoic. This correlates with breast MRI findings are of enhancement. Color flow imaging demonstrates that there is no vascularity present. IMPRESSION: BENIGN There is no sonographic evidence of malignancy. The stable post-surgical scar in the left breast. This is seen dating back to MRI 2020. Patient declined repeat MRI to evaluate enhancement pattern. Exam findings were discussed with the patient. Reviewed prior MRI findings with the patient. Patient denies significant change in the region of scaring. Joint decision making to return to screening mammogram. A 1 year screening mammogram is recommended. This exam was interpreted at Station ID: [id number]. Electronically Signed By: Fadi Kiran M.D. [facility] [place]/:11/24/2024 16:17:25 letter sent: Normal Exam ACR BI-RADS Category 2: Benign
== END ==
PROVIDERS: Family Provider Internal Medicine; PCP Internal Medicine; Referring Provider Internal Medicine; Visit Provider Internal Medicine
DX: N64.4 Mastodynia (principal); N63.10 Unspecified lump in the right breast, unspecified quadrant; N63.20 Unspecified lump in the left breast, unspecified quadrant; R92.333 Mammographic heterogeneous density, bilateral breasts; L90.5 Scar conditions and fibrosis of skin; Z85.3 Personal history of malignant neoplasm of breast
CPT/HCPCS: 76642; 77066; G0279

== ENCOUNTER 2024-12-19 06:22 | Emergency (ER) | payer MEDICARE, OTHER, SELFPAY ==
[2023-03-18 16:01] VITALS: BMI 23.2
[2024-12-19] VITALS (10 sets, daily range): BP systolic 141–165; BP diastolic 67–92; PULSE 74–83; RESP 14–20; TEMP 37.2; O2SAT 95–97
--- NOTE | 2024-12-19 06:33 | DI.RAD.S_ITS ---
PROCEDURE: XR CHEST 1V INDICATIONS: chest pain TECHNIQUE: One view of the chest was acquired. COMPARISON: None. FINDINGS: Surgical changes and devices: Left hemithorax surgical clips. Lungs and pleura: Lungs are clear. No pleural effusions or pneumothorax. Lungs are hyperexpanded. Mediastinum: Mediastinal contours appear normal. Heart size is normal. Bones and chest wall: No suspicious bony lesions. Overlying soft tissues appear unremarkable. IMPRESSION: No acute pulmonary process. The above findings are concordant with preliminary report. Dictated by: Africa Diaz M.D. on 12/19/2024 at 8:23 Approved by: Africa Diaz M.D. on 12/19/2024 at 8:23
--- NOTE | 2024-12-19 06:34 | EKG_ITS ---
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
[2024-12-19 06:47] LABS: Add Manual Diff / Slide Review NO; Basophils Absolute Auto 100 /uL (0-100); Basophils Percent Auto 0.9 % (0-2); Eosinophils Absolute Auto 400 /uL (0-450); Eosinophils Percent Auto 6.3 % (2-4); Hematocrit 41.5 % (36-46); Hemoglobin 13.8 g/dL (12.0-16.0); Lymphocytes Absolute Auto 2300 /uL (1100-4500); Lymphocytes Percent Auto 36.3 % (25-40); Mean Corpuscular HGB Conc 33.4 % (30-36); Mean Corpuscular Hemoglobin 29.5 PG (26-34); Mean Corpuscular Volume 88.3 fL (80-100); Monocytes Absolute Auto 900 /uL (0-900); Monocytes Percent Auto 13.7 % (3-14); Neutrophils Absolute Auto 2700 /uL (1500-7000); Neutrophils Percent Auto 42.8 % (50-75); Platelet Count 268 X10^3/uL (150-400); Red Blood Cell Count 4.69 X10^6/uL (4.0-5.2); Red Cell Distribution Width 13.4 % (11.6-14.8); White Blood Cell Count 6.3 X10^3/uL (4.5-11.0)
--- NOTE | 2024-12-19 07:21 | ED_ITS ---
HPI - General Adult General Chief complaint: Weakness Stated complaint: Gen Weakness Time Seen by Provider: 12/19/24 06:33 Source: EMS Mode of arrival: EMS Limitations: no limitations History of Present Illness HPI narrative: 84-year-old female history of anxiety, tremor who presents with complaint of increasing generalized weakness. Patient and family note that she was always a little bit weaker in the morning sort of improved throughout the day but over the past week has been a little bit worse. Patient has not appreciate any lateralizing weakness, no facial droop. Daughter states her speech is sometimes little bit more slurred in the morning but improves as the day goes by this has been longstanding. Daughter does note she has been a little bit more off balance. She denies fevers or chills. She was has a little bit of lightheadedness no syncope. No chest pain or shortness of breath no cough cold or congestive symptoms. She has had some mild nausea but no vomiting. No abdominal pain she does note occasional right flank discomfort. She states she was also been slightly constipated but otherwise been having bowel movements with MiraLax. Patient has not had any rash or skin changes. She notes she has a tremor particularly in her right arm which she describes as a voluntary does not improve with intentional use and can sometimes affect her other extremities. She was talked with the physician about it they discussed having her follow up with Neurology but she was not seen them. She also notes that she was has a lot of urinary frequency worse than typical she has chronic incontinence which she states is not stress incontinence. She denies any dysuria. She also notes she has been weaning her mirtazapine she was at 7.5 mg and for the past week has been taking 3/4 of a tablet. Patient states she wanted to wean off of the secondary to side effects. Patient states home medications include mirtazapine, propranolol which she takes it noon for her tremors, vitamin-D and a probiotic. She was had prior surgery for left breast cancer 25 years ago, had bladder surgery and Botox injections for incontinence. No known drug allergies. No tobacco, alcohol or recreational drugs. Primary care was Emelina Dominguez but she is retiring. Patient currently lives independently does have good social support and has a visiting angio 3 times weekly. She was accompanied by her daughter. Related Data Home Medications Medication Instructions Recorded Confirmed mirtazapine 7.5 mg tablet 7.5 mg PO DAILY 03/18/23 10/12/24 propranolol 10 mg tablet 10 mg PO DAILY 03/18/23 10/12/24 Previous Rx's Medication Instructions Recorded estradiol 0.01% (0.1 mg/gram) 0.5 g vaginal 2XW #42.5 grams 12/16/22 vaginal cream (Estrace) cephalexin 500 mg capsule 500 mg PO Q8H 7 days #21 caps 12/19/24 Allergies Allergy/AdvReac Type Severity Reaction Status Date / Time Sulfa (Sulfonamide Allergy Mild red face Verified 10/12/24 15:01 Antibiotics) Review of Systems Review of Systems ROS Unobtainable: All systems reviewed & are unremarkable except as noted in HPI and below Patient History Medical History Breast cancer (~1995) Social History household members: spouse Smoking Status: Former smoker alcohol intake: former Smoking Status: Former smoker alcohol intake frequency: holidays/special occasions only Exam Narrative Exam Narrative: GEN: well nourished, female, alert and oriented x 3, patient appears to be in mild distress. HEENT: Atraumatic, pupils are equal round reactive to light, extraocular movements are intact, nares are clear, TMs are clear with no fluid, there is no conjunctival pallor. Throat is clear without any exudates, erythema, tonsillar enlargement or uvular deviation, no facial droop HEART: Regular rate and rhythm without murmur, clicks, rubs. pulses are equal in upper and lower extremities LUNGS:Lungs clear to auscultation, no wheezes, rales, crackles, chest moves symmetrically ABD:bowel sounds normal, soft, non-tender, no guarding, rebound, rigidity, no masses noted, no hepatosplenomegaly :No CVA tenderness MSCL: Non-tender, no muscle atrophy, muscles strength 5/5 upper and lower extremities, full range of motion. NEURO:CN 2-12 intact, sensation normal, reflexes 2/4 upper and lower extremities. mild tremor right hand on occasion. Initial Vital Signs Initial Vital Signs: Vital Signs Pulse Rate 82 12/19/24 06:30 Respiratory Rate 20 12/19/24 06:30 Blood Pressure 159/67 H 12/19/24 06:30 Pulse Oximetry 96 12/19/24 06:30 Oxygen Delivery Method Room Air 12/19/24 06:30 Course Orders Ordered: Discontinued Medications Ceftriaxone Sodium 1,000 mg/ (Sodium Chloride) 100 mls @ 200 mls/hr IV NOW ONE Stop: 12/19/24 08:55 Last Infusion: 12/19/24 09:55 Dose: Infused Documented By: Admin: 12/19/24 09:09 Dose: 200 mls/hr Documented By: VINICIUS Vital Signs Vital signs: Vital Signs - 8 hr 12/19/24 06:30 12/19/24 06:30 12/19/24 06:31 Temperature 98.9 F Pulse Rate 82 83 Respiratory Rate 20 14 Blood Pressure 159/67 H 159/67 H Pulse Oximetry 96 96 Oxygen Delivery Method Room Air Room Air 12/19/24 07:00 12/19/24 07:00 12/19/24 07:30 Temperature Pulse Rate 80 74 Respiratory Rate 18 Blood Pressure 162/72 H Pulse Oximetry 97 96 Oxygen Delivery Method Room Air 12/19/24 07:30 12/19/24 08:00 12/19/24 08:00 Temperature Pulse Rate 76 Respiratory Rate 18 Blood Pressure 151/68 H 141/92 H Pulse Oximetry 96 Oxygen Delivery Method 12/19/24 08:12 12/19/24 08:13 12/19/24 08:13 Temperature Pulse Rate 77 75 Respiratory Rate 18 Blood Pressure 165/72 H Pulse Oximetry 97 97 Oxygen Delivery Method Room Air 12/19/24 08:30 12/19/24 08:30 12/19/24 09:00 Temperature Pulse Rate 76 77 Respiratory Rate Blood Pressure 155/72 H Pulse Oximetry 96 96 Oxygen Delivery Method 12/19/24 09:00 12/19/24 09:30 12/19/24 09:30 Temperature Pulse Rate 76 Respiratory Rate Blood Pressure 150/68 H 146/67 H Pulse Oximetry 95 Oxygen Delivery Method Medical Decision Making Lab Data 12/19/24 06:38 12/19/24 06:38 Labs: Lab Results 12/19/24 12/19/24 Range/Units 06:38 07:45 WBC 6.3 (4.5-11.0) X10^3/uL RBC 4.69 (4.0-5.2) X10^6/uL Hgb 13.8 (12.0-16.0) g/dL Hct 41.5 (36-46) % MCV 88.3 (80-100) fL MCH 29.5 (26-34) PG MCHC 33.4 (30-36) % RDW 13.4 (11.6-14.8) % Plt Count 268 (150-400) X10^3/uL Neut % (Auto) 42.8 L (50-75) % Lymph % (Auto) 36.3 (25-40) % Cla[place]orne % (Auto) 13.7 (3-14) % Eos % (Auto) 6.3 H (2-4) % Baso % (Auto) 0.9 (0-2) % Neut # (Auto) 2700 (1102-3063) /uL Lymph # (Auto) 2300 (1702-7130) /uL Cla[place]orne # (Auto) 900 (0-900) /uL Eos # (Auto) 400 (0-450) /uL Baso # (Auto) 100 (0-100) /uL Sodium 139 (137-145) mmol/L Potassium 3.8 (3.4-5.1) mmol/L Chloride 106 (98-107) mmol/L Carbon Dioxide 26 (22-32) mmol/L BUN 20 H (7-17) mg/dL Creatinine 0.72 (0.52-1.04) mg/dL Estimated GFR > 60 (>60) mL/min BUN/Creatinine Ratio 27.8 H (6-22) Glucose 105 (80-110) mg/dL Lactate 1.1 (0.7-2.1) mmol/L Calcium 9.2 (8.4-10.2) mg/dL Total Bilirubin 0.5 (0.2-1.3) mg/dL AST 32 (14-36) IU/L ALT 19 (<35) IU/L Alkaline Phosphatase 76 (38-126) U/L Total Creatine Kinase 85 (30-135) U/L Troponin I < 0.012 (0.01-0.034) ng/mL Total Protein 7.1 (6.3-8.2) g/dL Albumin 4.2 (3.5-5.0) g/dL Globulin 2.9 (1.7-4.1) g/dL Albumin/Globulin Ratio 1.4 (1.0-2.8) Lipase 139 (23-300) U/L Urine Color Yellow Urine Appearance Sl cloudy Urine pH 6.5 (4.5-8.0) Ur Specific Trout 1.020 (1.000-1.035) Urine Protein Negative (Negative) Urine Glucose (UA) Negative (Negative) g/dL Urine Ketones Negative (NEGATIVE) Urine Occult Blood Negative (Negative) Urine Nitrate Negative (Negative) Urine Bilirubin Negative (NEGATIVE) Urine Urobilinogen 0.2 (0.2) E.U./dL Ur Leukocyte Esterase Negative (NEGATIVE) Urine RBC None seen (0-5/HPF) Urine WBC 0-1/hpf (0-5/HPF) Ur Squamous Epith Cells 0-1 /hpf (0-5/HPF) Urine Bacteria Moderate (10-30) H (None) Ur Culture Indicated? Specimen cultured Vol Urine Centrifuged 10ml (spun) SARS-CoV-2 (PCR) Negative (Negative) Influenza A (RT-PCR) Flu a negative (NEGATIVE) Influenza B (RT-PCR) Flu b negative (NEGATIVE) RSV (PCR) Negative (Negative) Imaging Data Chest x-ray: Radiologist's Impression: Night read, no acute cardiopulmonary abnormality identified. Surgical clips overlying left lower lobe with the in the left axilla arteriosclerosis aorta. CT scan - head: Radiologist's Impression: Close Head CT (Signed) Africa Diaz - 12/19/24 Chest X-Ray (Signed) Africa Diaz - 12/19/24 Breast Ultrasound (Signed) Call,Fadi - 11/24/24 Breast Ultrasound (Signed) Call,Fadi - 11/24/24 Mammogram Diagnostic (Signed) Call,Fadi - 11/24/24 Mammogram Screening (Signed) Sanya Finley - 02/22/24 Breast MRI (Signed) Sanya Finley - 12/28/23 Breast Ultrasound (Signed) Call,Fadi - 07/15/23 Breast Ultrasound (Signed) Call,Fadi - 07/15/23 Breast MRI (Signed) May Mejia - 06/23/23 Pelvis Ultrasound (Signed) Arsalan Mario - 01/18/23 Abdomen Ultrasound (Signed) Sanya Regalado - 01/18/23 Mammogram Screening (Signed) Call,Fadi - 12/23/22 Mammogram Diagnostic (Signed) Sanya Finley - 12/18/21 Breast Ultrasound (Signed) Sanya Finley - 12/18/21 Chest/Abdomen/Pelvis CT (Signed) ElviragenesisJeremiah - 07/29/21 Brain MRI (Signed) Bala Miranda - 07/29/21 Breast Ultrasound (Signed) Sanya Finley - 06/16/21 Breast Ultrasound (Signed) Sanya Finley - 12/10/20 Breast MRI (Signed) Bee Johnson - 12/04/20 Abdomen MRI (Signed) Brenden Sarabia - 05/06/20 Pelvis Ultrasound (Signed) Michel Munoz - 04/24/20 Abdomen Ultrasound (Addendum) Michel Munoz - 04/24/20 Mammogram Diagnostic (Signed) Sanchez,Edward - 12/11/19 Breast Ultrasound (Signed) Sanchez,Edward - 12/11/19 Breast Ultrasound (Signed) Sanchez,Edward - 12/11/19 Mammogram, Additional Views (Addendum) Bee Johnson - 02/02/19 Breast Ultrasound (Addendum) Alex,Bee - 02/02/19 Mammogram Screening (Signed) Alex,Bee - 01/12/19 [place] [address] [place] Scan Report Signed Patient: Ra Renee MR#: [id number] : 1940 Acct:[id number] Age/Sex: 84 / F Date of Service: 12/19/24 Loc: Accession Number: [id number] Procedure: CT head/brain wo con Ordering Provider: Gardenia Bradshaw D.O. PROCEDURE: CT HEAD/BRAIN WO CON INDICATIONS: gen weakness, tremor R>L TECHNIQUE: Noncontrast 4.5 mm thick angled axial sections acquired from the foramen magnum to the vertex, with coronal and sagittal reformats. For radiation dose reduction, the following was used: automated exposure control, adjustment of mA and/or kV according to patient size. COMPARISON: None. FINDINGS: Image quality: Diagnostic. CSF spaces: Basal cisterns are patent. No extra-axial fluid collections. The ventricles are symmetric in size and shape. Brain: No intracranial bleeds or masses. There is cerebral volume loss for age, with resultant ventricular and sulcal prominence. There are periventricular and deep white matter chronic small vessel ischemic changes. There is intracranial internal carotid artery atherosclerosis. Skull and face: Calvarium and visualized facial bones appear intact, without suspicious lesions. Sinuses: Visualized sinuses and mastoids are clear. IMPRESSION: 1. No acute intracranial process. 2. Moderate atrophy and chronic microvascular ischemic changes. Dictated by: Africa Diaz M.D. on 12/19/2024 at 8:24 Approved by: Africa Diaz M.D. on 12/19/2024 at 8:25 ECG Data Attestation: I personally reviewed and interpreted this ECG as follows: Prior ECG tracings: not available for review Interpretation: Sinus rhythm first-degree block, rate of 79, TN 216, QRS of 90 QTC 433, No acute ST changes. MDM Narrative Medical decision making narrative: 84-year-old female with complaint of generalized weakness that has been worse for the past week to 2 weeks. Patient does note she has been weaning off her mirtazapine which maybe a component she does have baseline tremor feel little bit lightheaded but also notes some increased urinary frequency recently. Patient does not have any lateralizing symptoms on exam. Had 250 mL bladder scan was agreeable to straight cath. Discussed with patient and family we will obtain head CT she has tremor at baseline in the right particularly more than the left which has been very slowly progressive discussed potential differential but has not had imaging of her brain in the past. Also look for metabolic and infectious sources. Chest x-ray shows no acute change Head CT acute intracranial process moderate atrophy and chronic microvascular ischemic changes. EKG shows sinus rhythm first-degree AV block no acute ST changes no priors for comparison Labs show white count of 6.3 hemoglobin of 13.8 platelets of 268. Chemistries show normal electrolytes BUN 20 creatinine of 0.72 glucose of 105 lactate is 1.1 LFTs are negative, troponin is less than 0.012 Urine urine shows 10-30 bacteria 1 squamous 1 white cell no RBCs no leuks no nitrates. Was sent for culture. COVID/influenza/RSV swab is negative. Discussed with patient and family urinalysis shows possible infection could be certainly adding to patient's symptoms also weaning off her mirtazapine in his combination. Do think she would also probably benefit from following up with Neurology for her tremor missed some of her symptoms sound slowly progressive. Patient had ambulation trial here in the department. Patient was able to ambulate to the bathroom. Discussed with patient and family we will treat for UTI, discussed weaning her mirtazapine may be complicating her symptoms but I would recommend follow up with primary care as well as Neurology. Discharge Plan Departure Patient Disposition: Home Clinical Impression: Weakness, Acute UTI Activity Restrictions/Additional Instructions: I do recommend that you follow up with Neurology in your primary care physician. Contact for Neurology is included below does take a long time to set up an appointment so I would call to set this up. Some of your worsening symptoms maybe related as you have some bacteria in your urine but also has a weaning down your mirtazapine this in combination could be making you feel much worse. Please take oral antibiotics until completed. Prescription is printed. Your next dose is due tomorrow. Please return for fevers, worsening symptoms, any changes in mental status or confusion, chest pain or shortness of breath, nausea or vomiting, inability to urinate, black or bloody stools, new abdominal back or flank pain or other new or concerning changes. Prescriptions: New cephalexin 500 mg capsule 500 mg PO Q8H 7 Days Qty: 21 0RF No Action estradiol [Estrace] 0.01 % (0.1 mg/gram) cream 0.5 g vaginal 2XW Qty: 42.5 3RF Rx Instructions: twice a week until surgery propranolol 10 mg Tablet 10 mg PO DAILY mirtazapine 7.5 mg Tablet 7.5 mg PO DAILY Referrals: Emelina Dominguez ARNP [Primary Care Provider] - Simon Hudson MD [Non-Staff] - Stand Alone Forms: Patient Portal/API/Survey
[2024-12-19 07:22] LABS: Alanine Aminotransferase 19 IU/L (<35); Albumin 4.2 g/dL (3.5-5.0); Albumin Globulin Ratio 1.4 (1.0-2.8); Alkaline Phosphatase 76 U/L (38-126); Aspartate Aminotransferase 32 IU/L (14-36); BUN Creatinine Ratio 27.8 (6-22); Bilirubin Total 0.5 mg/dL (0.2-1.3); Blood Urea Nitrogen 20 mg/dL (7-17); Calcium 9.2 mg/dL (8.4-10.2); Carbon Dioxide 26 mmol/L (22-32); Chloride 106 mmol/L (98-107); Creatine Kinase 85 U/L (30-135); Estimated Glomerular Filt Rate > 60 mL/min (>60); Globulin 2.9 g/dL (1.7-4.1); Glucose 105 mg/dL (80-110); HEMOLYSIS < 15 (0-50); Lipase 139 U/L (23-300); Potassium 3.8 mmol/L (3.4-5.1); Sodium 139 mmol/L (137-145); Total Protein 7.1 g/dL (6.3-8.2)
[2024-12-19 07:23] LABS: Lactate (Lactic Acid) 1.1 mmol/L (0.7-2.1)
[2024-12-19 07:32] LABS: COVID-19 CEPHEID 4-PLEX PCR Negative (Negative); Influenza A - CEPHEID Flu A NEGATIVE (NEGATIVE); Influenza B - CEPHEID Flu B NEGATIVE (NEGATIVE); Respiratory Syncytial Virus Negative (Negative)
[2024-12-19 07:34] LABS: Troponin I < 0.012 ng/mL (0.01-0.034)
--- NOTE | 2024-12-19 08:00 | DI.CT.S_ITS ---
PROCEDURE: CT HEAD/BRAIN WO CON INDICATIONS: gen weakness, tremor R>L TECHNIQUE: Noncontrast 4.5 mm thick angled axial sections acquired from the foramen magnum to the vertex, with coronal and sagittal reformats. For radiation dose reduction, the following was used: automated exposure control, adjustment of mA and/or kV according to patient size. COMPARISON: None. FINDINGS: Image quality: Diagnostic. CSF spaces: Basal cisterns are patent. No extra-axial fluid collections. The ventricles are symmetric in size and shape. Brain: No intracranial bleeds or masses. There is cerebral volume loss for age, with resultant ventricular and sulcal prominence. There are periventricular and deep white matter chronic small vessel ischemic changes. There is intracranial internal carotid artery atherosclerosis. Skull and face: Calvarium and visualized facial bones appear intact, without suspicious lesions. Sinuses: Visualized sinuses and mastoids are clear. IMPRESSION: 1. No acute intracranial process. 2. Moderate atrophy and chronic microvascular ischemic changes. Dictated by: Africa Diaz M.D. on 12/19/2024 at 8:24 Approved by: Africa Diaz M.D. on 12/19/2024 at 8:25
[2024-12-19 08:31] LABS: Appearance Urine UA SL CLOUDY; Bilirubin Urine UA NEGATIVE (NEGATIVE); Color Urine UA YELLOW; Glucose Urine UA NEGATIVE (Negative); Ketones Urine UA NEGATIVE (NEGATIVE); Leukocyte Esterase Urine UA NEGATIVE (NEGATIVE); Nitrite Urine UA NEGATIVE (Negative); Occult Blood Urine UA NEGATIVE (Negative); Protein Urine UA NEGATIVE (Negative); Urobilinogen Urine UA 0.2 E.U./dL (0.2)
[2024-12-19 08:34] LABS: pH Urine UA 6.5 (4.5-8.0)
[2024-12-19 08:42] LABS: Bacteria Urine Moderate (10-30); Culture Indicated Urine Specimen Cultured; RBC Urine None Seen (0-5/HPF); Squamous Epithelial Cell Urine 0-1 /HPF (0-5/HPF); Urine Volume 10mL (spun); WBC Urine 0-1/HPF (0-5/HPF)
[2024-12-19] MEDS: cefTRIAXone 1,000 MG in SODIUM CHLORIDE 0.9% 100 ML 200 MG IV (09:09)
== END 2024-12-19 10:46 | disposition home or self-care (01) ==
PROVIDERS: Emergency Medicine; Emergency Provider Emergency Medicine; Family Provider Internal Medicine; PCP Internal Medicine
DX: R53.1 Weakness (principal); N39.0 Urinary tract infection, site not specified; I44.0 Atrioventricular block, first degree; R47.81 Slurred speech; R11.0 Nausea; R10.9 Unspecified abdominal pain; K59.00 Constipation, unspecified; R25.1 Tremor, unspecified; Z88.2 Allergy status to sulfonamides; Z85.3 Personal history of malignant neoplasm of breast; Z87.891 Personal history of nicotine dependence
CPT/HCPCS: 0241U; 36415; 51701; 51798; 70450; 71045; 80053; 81001; 82550; 83605; 83690; 84484; 85025; 87077; 87086; 93005; 96365; 99284; J0696

== ENCOUNTER → 2025-01-01 16:11 | Outpatient (CLI) | payer MEDICARE, OTHER, SELFPAY ==
[2023-03-18 16:01] VITALS: BMI 23.2
[2025-01-01 17:36] LABS: Cholesterol 285 mg/dL (140-199); HDL Cholesterol 86 mg/dL (40-60); LDL Cholesterol Calculated 175 mg/dL (<100); Triglycerides 118 mg/dL (35-150)
[2025-01-01 18:07] LABS: TSH w/ Reflex to FT4 2.92 uIU/mL (0.47-4.68)
== END ==
PROVIDERS: Family Provider Internal Medicine; PCP Internal Medicine; Referring Provider Internal Medicine; Visit Provider Internal Medicine
DX: E78.2 Mixed hyperlipidemia (principal)
CPT/HCPCS: 36415; 80061; 84443

== ENCOUNTER 2025-02-11 10:02 | Emergency (ER) | payer MEDICARE, OTHER, SELFPAY ==
[2023-03-18 16:01] VITALS: BMI 23.2
[2025-02-11 10:29] VITALS: BP 141/63; PULSE 75; RESP 16; TEMP 36.6; O2SAT 97; BMI 20.9
--- NOTE | 2025-02-11 12:03 | ED.ABDPAIN ---
HPI - Abdominal Pain <Lexis Nino PA-C - Last Filed: 02/11/25 16:23> General Chief Complaint: Abdominal Pain Stated Complaint: Maybe exp bowel obstruction; alot discomfort Time Seen by Provider: 02/11/25 11:54 History of Present Illness HPI narrative: Ra Renee is a pleasant 85-year-old female with a past medical history of hysterectomy, cystocele and rectocele repair, anxiety and depression, benign essential tremor, hyperlipidemia, UTI who presents to the emergency department with her daughter for constipation x5 days. They are concerned for bowel obstruction. Patient reports she has been suffering with constipation however the last 5 days she has had absolutely no bowel movement. States that she does not have the urge to defecate but if she tries she has to strain. She is intermittent nausea but no vomiting. Reports mild abdominal discomfort but no abdominal pain, no tenderness. Occasional low back pain. Denies any dysuria or hematuria but admits to frequency. No fevers or chills. She occasionally feels short of breath. She denies chest pain. She is tried MiraLax and prune juice without relief. She continues to pass flatus. Related Data Previous Rx's Medication Instructions Recorded estradiol 0.01% (0.1 mg/gram) 0.5 g vaginal 2XW #42.5 grams 12/16/22 vaginal cream (Estrace) propranolol 10 mg tablet 10 mg PO DAILY tremor #90 tabs 01/01/25 sertraline 25 mg tablet 25 mg PO DAILY #90 tabs 01/15/25 mirtazapine 15 mg tablet 15 mg PO BEDTIME #30 tabs 02/08/25 Allergies Allergy/AdvReac Type Severity Reaction Status Date / Time Sulfa (Sulfonamide Allergy Mild red face Verified 02/05/25 13:34 Antibiotics) Review of Systems <Lexis Nino PA-C - Last Filed: 02/11/25 16:23> Review of Systems ROS Unobtainable: All systems reviewed & are unremarkable except as noted in HPI and below Patient History <Lexis Nino PA-C - Last Filed: 02/11/25 16:23> Medical History Slow transit constipation Benign essential tremor History of breast cancer Mixed hyperlipidemia Menopausal syndrome Depression, major, recurrent Recurrent UTI Surgical History S/P lumpectomy of breast Social History details: (Chuck) 02/2024, 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 Frail elderly patient in no acute distress. HEAD: Atraumatic. Normocephalic. EYES: No scleral icterus. No injection or drainage. ENT: Nose without bleeding, purulent drainage. Throat without erythema, tonsillar hypertrophy or exudate. Airway patent. NECK: Trachea midline. Cervical ROM intact. CARDIOVASCULAR: Regular rate and rhythm. RESPIRATORY: ?Nonlabored respirations. ?Speaking in clear, full sentences. ?Clear to auscultation. Somewhat decreased breath sounds BL lower lobes. GASTROINTESTINAL: Abdomen soft, non-tender, nondistended. Bowel sounds present. No CVA tenderness. EXTREMITIES: No edema or joint tenderness. BACK: No midline spinal tenderness. NEURO: Alert, answers questions appropriately. Clear speech. ?Moves all 4 extremities appropriately. SKIN: No rash or erythema of visible areas Initial Vital Signs Initial Vital Signs: Vital Signs Temperature 97.9 F 02/11/25 10:29 Pulse Rate 75 02/11/25 10:29 Respiratory Rate 16 02/11/25 10:29 Blood Pressure 141/63 H 02/11/25 10:29 Pulse Oximetry 97 02/11/25 10:29 Oxygen Delivery Method Room Air 02/11/25 10:29 <Denton Barney MD - Last Filed: 02/11/25 20:16> Initial Vital Signs Initial Vital Signs: Vital Signs Temperature 97.9 F 02/11/25 10:29 Pulse Rate 75 02/11/25 10:29 Respiratory Rate 16 02/11/25 10:29 Blood Pressure 141/63 H 02/11/25 10:29 Pulse Oximetry 97 02/11/25 10:29 Oxygen Delivery Method Room Air 02/11/25 10:29 Course <Lexis Nino PA-C - Last Filed: 02/11/25 16:23> Orders Ordered: ED Orders 02/11/25 12:04 Urine Microscopic Stat 02/11/25 12:31 XR acute abdomen series Stat 02/11/25 12:45 Complete Blood Count AUTO DIFF Stat Comprehensive Metabolic Panel Stat Lipase Stat Discontinued Medications Ondansetron HCl (Ondansetron 4 Mg/2 Ml Inj) 4 mg IV NOW PRN PRN Reason: Nausea And Vomiting Ondansetron HCl (Ondansetron 4 Mg Odt) 4 mg PO NOW PRN PRN Reason: Nausea And Vomiting Sodium Biphosphate/Sodium Phosphate (Fleets Enema) 1 each W[place] NOW ONE Stop: 02/11/25 14:01 Last Admin: 02/11/25 14:46 Dose: 1 each Documented By: LUBA Vital Signs Vital signs: Vital Signs - 8 hr 02/11/25 15:11 Temperature 98.3 F Pulse Rate 79 Respiratory Rate 16 Blood Pressure 135/69 Pulse Oximetry 99 Oxygen Delivery Method Room Air <Denton Barney MD - Last Filed: 02/11/25 20:16> Orders Ordered: ED Orders 02/11/25 12:04 Urine Microscopic Stat 02/11/25 12:31 XR acute abdomen series Stat 02/11/25 12:45 Complete Blood Count AUTO DIFF Stat Comprehensive Metabolic Panel Stat Lipase Stat Discontinued Medications Ondansetron HCl (Ondansetron 4 Mg/2 Ml Inj) 4 mg IV NOW PRN PRN Reason: Nausea And Vomiting Ondansetron HCl (Ondansetron 4 Mg Odt) 4 mg PO NOW PRN PRN Reason: Nausea And Vomiting Sodium Biphosphate/Sodium Phosphate (Fleets Enema) 1 each WV NOW ONE Stop: 02/11/25 14:01 Last Admin: 02/11/25 14:46 Dose: 1 each Documented By: LUBA Vital Signs Vital signs: Vital Signs - 8 hr 02/11/25 15:11 Temperature 98.3 F Pulse Rate 79 Respiratory Rate 16 Blood Pressure 135/69 Pulse Oximetry 99 Oxygen Delivery Method Room Air MDM - Abdominal Pain <Lexis Nino PA-C - Last Filed: 02/11/25 16:23> Medical Records Attestation: I reviewed the patient's medical records. Lab Data 02/11/25 12:45 02/11/25 12:45 Labs: Lab Results 02/11/25 02/11/25 Range/Units 12:04 12:45 WBC 5.3 (4.5-11.0) X10^3/uL RBC 4.70 (4.0-5.2) X10^6/uL Hgb 14.1 (12.0-16.0) g/dL Hct 41.3 (36-46) % MCV 88.0 (80-100) fL MCH 30.0 (26-34) PG MCHC 34.2 (30-36) % RDW 13.3 (11.6-14.8) % Plt Count 240 (150-400) X10^3/uL Neut % (Auto) 53.8 (50-75) % Lymph % (Auto) 30.3 (25-40) % Baker % (Auto) 11.8 (3-14) % Eos % (Auto) 2.9 (2-4) % Baso % (Auto) 1.2 (0-2) % Neut # (Auto) 2900 (9770-3136) /uL Lymph # (Auto) 1600 (3542-6456) /uL Baker # (Auto) 600 (0-900) /uL Eos # (Auto) 200 (0-450) /uL Baso # (Auto) 100 (0-100) /uL Sodium 137 (137-145) mmol/L Potassium 4.0 (3.4-5.1) mmol/L Chloride 106 (98-107) mmol/L Carbon Dioxide 24 (22-32) mmol/L BUN 21 H (7-17) mg/dL Creatinine 0.71 (0.52-1.04) mg/dL Estimated GFR > 60 (>60) mL/min BUN/Creatinine Ratio 29.6 H (6-22) Glucose 106 (80-110) mg/dL Calcium 9.3 (8.4-10.2) mg/dL Total Bilirubin 0.7 (0.2-1.3) mg/dL AST 27 (14-36) IU/L ALT 19 (<35) IU/L Alkaline Phosphatase 73 (38-126) U/L Total Protein 7.3 (6.3-8.2) g/dL Albumin 4.4 (3.5-5.0) g/dL Globulin 2.9 (1.7-4.1) g/dL Albumin/Globulin Ratio 1.5 (1.0-2.8) Lipase 124 (23-300) U/L Urine RBC None seen (0-5/HPF) Urine WBC 0-1/hpf (0-5/HPF) Ur Squamous Epith Cells 1-5 /hpf (0-5/HPF) Calcium Oxalate Crystal Few H Urine Bacteria None seen (None) Ur Culture Indicated? Cult not indicated Vol Urine Centrifuged 10ml (spun) Point of care testing: Urine Dip Bedside Urine Glucose Negative Bedside Urine Bilirubin - Negative Bedside Urine Ketone - Negative Urine Specific [place] 1.020 Bedside Urine Occult Blood - Negative Bedside Urine pH 6 Bedside Urine Protein - Negative Bedside Urine Urobilinogen - Negative Bedside Urine Nitrite - Negative Bedside Urine Leukocytes - Negative Esterase Imaging Data Abdominal x-ray: Radiologist's Impression: PROCEDURE: XR ACUTE ABDOMEN SERIES INDICATIONS: constipation x 5 days TECHNIQUE: One view chest and two views of the abdomen were acquired. COMPARISON: None. FINDINGS: Surgical changes and devices: Left breast surgical clips. Chest: Lungs are clear. Heart size is normal. No pleural effusions. No pneumoperitoneum. Abdomen: Bowel gas pattern is normal. No suspicious calcifications. Visualized solid organ contours appear normal. Stool burden within normal limits. Bones: No suspicious bony lesions. IMPRESSION: No radiographic evidence of bowel obstruction. MDM Narrative Medical decision making narrative: 85-year-old female with a past medical history of hysterectomy, cystocele and rectocele repair, anxiety and depression, benign essential tremor, hyperlipidemia, UTI who presents to the emergency department with her daughter for constipation x5 days. Differential diagnosis includes but is not limited to bowel obstruction, constipation, UTI, electrolyte abnormality, etc. On exam patient is in no acute distress, nontoxic appearing, vital signs appropriate in triage. She is reporting concern for possible bowel obstruction, denies a history of ever having a bowel obstruction in the past. She feels somewhat nauseated but abdomen is nontender. 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 I am agreeable to proceed with x-ray and lab work at this time. We will treat with Zofran. Acute chest/abdominal x-ray reveals no radiographic evidence of bowel obstruction. Labs reveal normal WBC count 5.3, hemoglobin 14.1, normal renal function and electrolytes. UA is negative for infection. Patient request enema after negative imaging which I am agreeable to and she had good relief and bowel movement using the enema. She is happy to go home. We discussed strict ED return precautions and follow up with PCP. I did recommend daily MiraLax and magnesium citrate if she develops constipation again. She verbalized understanding of all information is agreeable with the plan. She is stable for discharge home with her daughter. <Denton Barney MD - Last Filed: 02/11/25 20:16> Lab Data Labs: Lab Results 02/11/25 02/11/25 Range/Units 12:04 12:45 WBC 5.3 (4.5-11.0) X10^3/uL RBC 4.70 (4.0-5.2) X10^6/uL Hgb 14.1 (12.0-16.0) g/dL Hct 41.3 (36-46) % MCV 88.0 (80-100) fL MCH 30.0 (26-34) PG MCHC 34.2 (30-36) % RDW 13.3 (11.6-14.8) % Plt Count 240 (150-400) X10^3/uL Neut % (Auto) 53.8 (50-75) % Lymph % (Auto) 30.3 (25-40) % Baker % (Auto) 11.8 (3-14) % Eos % (Auto) 2.9 (2-4) % Baso % (Auto) 1.2 (0-2) % Neut # (Auto) 2900 (3073-2438) /uL Lymph # (Auto) 1600 (7298-8094) /uL Baker # (Auto) 600 (0-900) /uL Eos # (Auto) 200 (0-450) /uL Baso # (Auto) 100 (0-100) /uL Sodium 137 (137-145) mmol/L Potassium 4.0 (3.4-5.1) mmol/L Chloride 106 (98-107) mmol/L Carbon Dioxide 24 (22-32) mmol/L BUN 21 H (7-17) mg/dL Creatinine 0.71 (0.52-1.04) mg/dL Estimated GFR > 60 (>60) mL/min BUN/Creatinine Ratio 29.6 H (6-22) Glucose 106 (80-110) mg/dL Calcium 9.3 (8.4-10.2) mg/dL Total Bilirubin 0.7 (0.2-1.3) mg/dL AST 27 (14-36) IU/L ALT 19 (<35) IU/L Alkaline Phosphatase 73 (38-126) U/L Total Protein 7.3 (6.3-8.2) g/dL Albumin 4.4 (3.5-5.0) g/dL Globulin 2.9 (1.7-4.1) g/dL Albumin/Globulin Ratio 1.5 (1.0-2.8) Lipase 124 (23-300) U/L Urine RBC None seen (0-5/HPF) Urine WBC 0-1/hpf (0-5/HPF) Ur Squamous Epith Cells 1-5 /hpf (0-5/HPF) Calcium Oxalate Crystal Few H Urine Bacteria None seen (None) Ur Culture Indicated? Cult not indicated Vol Urine Centrifuged 10ml (spun) Point of care testing: Urine Dip Bedside Urine Glucose Negative Bedside Urine Bilirubin - Negative Bedside Urine Ketone - Negative Urine Specific [place] 1.020 Bedside Urine Occult Blood - Negative Bedside Urine pH 6 Bedside Urine Protein - Negative Bedside Urine Urobilinogen - Negative Bedside Urine Nitrite - Negative Bedside Urine Leukocytes - Negative Esterase Discharge Plan Departure Patient Disposition: Home Clinical Impression: Constipation Qualifiers: Constipation type: unspecified constipation type Qualified Code(s): K59.00 - Constipation, unspecified Instructions: DI for Constipation Activity Restrictions/Additional Instructions: Thank you for coming to the emergency department. Today you were evaluated for not having a bowel movement in 5 days. Your x-ray does not show any signs of obstruction at this time and your blood work is all reassuring. Your urinalysis is negative for infection. You were treated with an enema. I would like you to continue using MiraLax daily, increase movement and hydration. You may also try magnesium citrate which is an imfr-udr-nmrhves laxative. You may drink 150-300 mL as a single dose. Please follow up with your primary care doctor and return to the emergency department for any new or worsening symptoms such as fevers, vomiting, severe pain or other concerns. Please follow up with your primary care doctor within the next 2-3 days for ER follow-up. (If you do not have a PCP you can call [phone]. ?to schedule an appointment with an [facility] Primary Care Provider) IF YOU DEVELOP ANY NEW OR WORSENING SYMPTOMS, RETURN TO THE ER! Please read the attached instructions, they highlight more specific treatments and interventions for you at home. Thank you for letting me participate in your care, Lexis Nino PA-C Prescriptions: No Action mirtazapine 15 mg tablet 15 mg PO BEDTIME Qty: 30 0RF sertraline 25 mg tablet 25 mg PO DAILY Qty: 90 3RF estradiol [Estrace] 0.01 % (0.1 mg/gram) cream 0.5 g vaginal 2XW Qty: 42.5 3RF Rx Instructions: twice a week until surgery propranolol 10 mg tablet 10 mg PO DAILY Qty: 90 3RF Referrals: Nathan Santiago MD [Primary Care Provider] - Stand Alone Forms: Patient Portal/API/Survey ED Sign-out <Denton Barney MD - Last Filed: 02/11/25 20:16> [facility] I was immediately available in the department for consultation. This documentation has been reviewed and I agree with assessment and plan. Supervised by Denton Barney MD
--- NOTE | 2025-02-11 12:18 | EKG_ITS ---
[address] [address] Test Date: 2025-02-11 Pat Name: Ra Renee Department: Room: Gender: Female K9 Handler: : 1940 Requested By: Order Number: [id number] Reading MD: Fortino Schneider MD Measurements Intervals [place] Rate: 78 P: 77 NC: 194 QRS: 71 QRSD: 94 T: 62 QT: 390 QTc: 444 Interpretive Statements Normal sinus rhythm Electronically Signed On 02-11-2025 15:04:35 PDT by Fortino Schneider MD
--- NOTE | 2025-02-11 12:31 | DI.RAD.S_ITS ---
PROCEDURE: XR ACUTE ABDOMEN SERIES INDICATIONS: constipation x 5 days TECHNIQUE: One view chest and two views of the abdomen were acquired. COMPARISON: None. FINDINGS: Surgical changes and devices: Left breast surgical clips. Chest: Lungs are clear. Heart size is normal. No pleural effusions. No pneumoperitoneum. Abdomen: Bowel gas pattern is normal. No suspicious calcifications. Visualized solid organ contours appear normal. Stool burden within normal limits. Bones: No suspicious bony lesions. IMPRESSION: No radiographic evidence of bowel obstruction. Dictated by: Dwain Yi M.D. on 02/11/2025 at 12:36 Approved by: Dwain Yi M.D. on 02/11/2025 at 12:37
[2025-02-11 13:01] LABS: Add Manual Diff / Slide Review NO; Basophils Absolute Auto 100 /uL (0-100); Basophils Percent Auto 1.2 % (0-2); Eosinophils Absolute Auto 200 /uL (0-450); Eosinophils Percent Auto 2.9 % (2-4); Hematocrit 41.3 % (36-46); Hemoglobin 14.1 g/dL (12.0-16.0); Lymphocytes Absolute Auto 1600 /uL (1100-4500); Lymphocytes Percent Auto 30.3 % (25-40); Mean Corpuscular HGB Conc 34.2 % (30-36); Monocytes Absolute Auto 600 /uL (0-900); Monocytes Percent Auto 11.8 % (3-14); Neutrophils Absolute Auto 2900 /uL (1500-7000); Neutrophils Percent Auto 53.8 % (50-75); Platelet Count 240 X10^3/uL (150-400); Red Cell Distribution Width 13.3 % (11.6-14.8); White Blood Cell Count 5.3 X10^3/uL (4.5-11.0)
[2025-02-11 13:17] LABS: Alanine Aminotransferase 19 IU/L (<35); Albumin 4.4 g/dL (3.5-5.0); Albumin Globulin Ratio 1.5 (1.0-2.8); Alkaline Phosphatase 73 U/L (38-126); Aspartate Aminotransferase 27 IU/L (14-36); BUN Creatinine Ratio 29.6 (6-22); Bilirubin Total 0.7 mg/dL (0.2-1.3); Blood Urea Nitrogen 21 mg/dL (7-17); Calcium 9.3 mg/dL (8.4-10.2); Carbon Dioxide 24 mmol/L (22-32); Chloride 106 mmol/L (98-107); Estimated Glomerular Filt Rate > 60 mL/min (>60); Globulin 2.9 g/dL (1.7-4.1); Glucose 106 mg/dL (80-110); HEMOLYSIS < 15 (0-50); Lipase 124 U/L (23-300); Sodium 137 mmol/L (137-145); Total Protein 7.3 g/dL (6.3-8.2)
[2025-02-11] MEDS: FLEETS ENEMA 1 EACH PR (14:46)
[2025-02-11 14:56] LABS: RBC Urine None Seen (0-5/HPF); Urine Volume 10mL (spun); WBC Urine 0-1/HPF (0-5/HPF)
[2025-02-11 14:57] LABS: Bacteria Urine None Seen; Calcium Oxalate Crystals Urine Few; Culture Indicated Urine Cult Not Indicated; Squamous Epithelial Cell Urine 1-5 /HPF (0-5/HPF)
[2025-02-11 15:11] VITALS: BP 135/69; PULSE 79; RESP 16; TEMP 36.8; O2SAT 99
== END 2025-02-11 15:40 | disposition home or self-care (01) ==
PROVIDERS: Emergency Medicine; Emergency Provider Physician Assistant; Family Provider Internal Medicine; PCP Internal Medicine
DX: K59.00 Constipation, unspecified (principal)
CPT/HCPCS: 36415; 74022; 80053; 81003; 81015; 83690; 85025; 93005; 93010; 99284

== ENCOUNTER 2025-03-08 10:11 | Emergency (ER) | payer MEDICARE, OTHER, SELFPAY ==
[2023-03-18 16:01] VITALS: BMI 23.2
[2025-03-08] VITALS (9 sets, daily range): BP systolic 132–164; BP diastolic 62–81; PULSE 77–82; RESP 13–23; TEMP 36.6; O2SAT 95–97; BMI 21.0
[2025-03-08 10:44] LABS: Urine Volume 10mL (spun)
[2025-03-08 10:45] LABS: Bacteria Urine None Seen; RBC Urine None Seen (0-5/HPF); Squamous Epithelial Cell Urine 5-10 /HPF (0-5/HPF); WBC Urine None Seen (0-5/HPF)
[2025-03-08 10:46] LABS: Amorphous Sediment Urine 1+; Culture Indicated Urine Cult Not Indicated
--- NOTE | 2025-03-08 10:48 | ED.WEAKNESS ---
HPI - Weakness General Chief complaint: Urogenital-Female Stated complaint: Generalized Weakness Time Seen by Provider: 03/08/25 10:25 Source: patient and EMS Mode of arrival: EMS History of Present Illness HPI Narrative: 85-year-old female past medical history of hypertension, depression, hyperlipidemia, status post hysterectomy, cystocele and rectocele repair, and benign essential tremor presenting from the emergency department from home via EMS for evaluation of increased generalized weakness and increased urinary frequency. According to the patient she has been feeling weak over the past year. He states that this started when her unfortunately past, she states that she has been on other depressant medications but had these changed approximately 3 weeks ago. She denies any other symptoms such as headache visual disturbances chest pain shortness breath fever chills nausea vomiting abdominal pain or any other GI/ symptoms time. Related Data Previous Rx's Medication Instructions Recorded estradiol 0.01% (0.1 mg/gram) 0.5 g vaginal 2XW #42.5 grams 12/16/22 vaginal cream (Estrace) propranolol 10 mg tablet 10 mg PO DAILY tremor #90 tabs 01/01/25 citalopram 10 mg tablet 10 mg PO DAILY #90 tabs 02/19/25 olanzapine 2.5 mg tablet 2.5 mg PO BEDTIME #30 tabs 03/05/25 Allergies Allergy/AdvReac Type Severity Reaction Status Date / Time Sulfa (Sulfonamide Allergy Mild red face Verified 02/19/25 16:24 Antibiotics) Review of Systems Review of Systems Narrative: General: Positive generalized weakness, Denies fever, chills, weight loss HEENT: Denies headache, eye drainage, eye irritation, head trauma, sore throat, voice change Cardiovascular: Denies any chest pain, palpitations, tachycardia Respiratory: Denies any shortness of breath, cough, wheeze, stridor GI/: Positive urinary frequency, Denies any abdominal pain, nausea, vomiting, diarrhea, bright red blood per rectum, melanotic stools, urinary retention, dysuria, hematuria MSK: Denies any joint pain, muscle pains, swelling Skin: Denies any rashes, lesions, discoloration Neuro: Denies any headache, lightheadedness, dizziness, fainting, weakness Psych: Denies SI/HI Patient History Medical History (Updated 03/08/25 @ 13:16 by Reinaldo Baluyot, DO) Do not resuscitate Slow transit constipation Benign essential tremor History of breast cancer Mixed hyperlipidemia Menopausal syndrome Depression, major, recurrent Recurrent UTI Surgical History S/P lumpectomy of breast Social History details: (Chuck) 02/2024, 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, 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 members: spouse Smoking Status: Current every day smoker alcohol intake: former Smoking Status: Current every day smoker alcohol intake frequency: holidays/special occasions only Exam Narrative Exam Narrative: General: Cooperative, elderly, frail, not in acute distress HEENT: Normocephalic, atraumatic, PERRLA, normal sclera, eyelids normal Neck: Active full range of motion, atraumatic Chest: Normal to inspection, negative crepitus, no overlying erythema ecchymosis Respiratory: Normal respiratory effort, not in acute respiratory distress, clear to auscultation bilaterally negative cough, wheeze, tachypnea, rhonchi, rales Cardiology: Regular rate rhythm negative gallop, murmur, rubs GI/: No tenderness to palpation, soft, non rigid, normal to inspection, exam deferred MSK: Full active range of motion in all 4 extremities, atraumatic, no tenderness to palpation of any bony prominences Skin: No rashes or lesions noted Neuro: Alert awake oriented x3, moves all 4 extremities spontaneously, cranial nerves intact, able to answer all questions appropriately follows commands appropriately Psych: Cooperative, negative suicidal or homicidal ideations Initial Vital Signs Initial Vital Signs: Vital Signs Pulse Rate 80 03/08/25 10:15 Blood Pressure 164/70 H 03/08/25 10:15 Pulse Oximetry 96 03/08/25 10:15 Course Orders Ordered: ED Orders 03/08/25 10:32 Urine Microscopic Stat 03/08/25 10:52 XR chest 1V Stat EKG-12 Lead Stat 03/08/25 11:07 Covid-19 + FLU A/B + RSV - PCR Stat 03/08/25 11:10 Complete Blood Count AUTO DIFF Stat Comprehensive Metabolic Panel Stat Lipase Stat Troponin & CK Cardiac Panel Stat Discontinued Medications Acetaminophen (Acetaminophen 325 Mg Tablet) 650 mg PO NOW ONE Stop: 03/08/25 11:33 Last Admin: 03/08/25 11:41 Dose: 650 mg Documented By: RB Sodium Chloride (Normal Saline 0.9%) 1,000 mls @ 500 mls/hr IV BOLUS ONE Stop: 03/08/25 12:51 Last Admin: 03/08/25 11:36 Dose: 500 mls/hr Documented By: RB Ondansetron HCl (Ondansetron 4 Mg/2 Ml Inj) 4 mg IV NOW ONE Stop: 03/08/25 12:23 Last Admin: 03/08/25 12:28 Dose: 4 mg Documented By: RB Vital Signs Vital signs: Vital Signs - 8 hr 03/08/25 10:15 03/08/25 10:15 03/08/25 10:21 Temperature 98 F Pulse Rate 80 80 Respiratory Rate 16 Blood Pressure 164/70 H 164/70 H Pulse Oximetry 96 96 Oxygen Delivery Method Room Air 03/08/25 10:30 03/08/25 10:30 03/08/25 11:00 Temperature Pulse Rate 81 79 Respiratory Rate Blood Pressure 132/62 Pulse Oximetry 96 96 Oxygen Delivery Method 03/08/25 11:00 03/08/25 11:30 03/08/25 11:30 Temperature Pulse Rate 78 Respiratory Rate 13 Blood Pressure 151/70 H 141/81 H Pulse Oximetry 97 Oxygen Delivery Method MDM - Weakness Differential Diagnosis Differential diagnosis: Likely dehydration and other (Electrolyte abnormality, COVID, flu, pneumonia, ACS) Lab Data 03/08/25 11:10 03/08/25 11:10 Labs: Lab Results 03/08/25 03/08/25 03/08/25 Range/Units 10:32 11:07 11:10 WBC 5.7 (4.5-11.0) X10^3/uL RBC 4.58 (4.0-5.2) X10^6/uL Hgb 13.7 (12.0-16.0) g/dL Hct 39.9 (36-46) % MCV 86.9 (80-100) fL MCH 29.9 (26-34) PG MCHC 34.4 (30-36) % RDW 13.1 (11.6-14.8) % Plt Count 280 (150-400) X10^3/uL Neut % (Auto) 59.1 (50-75) % Lymph % (Auto) 25.0 (25-40) % Ellis % (Auto) 12.9 (3-14) % Eos % (Auto) 1.7 L (2-4) % Baso % (Auto) 1.3 (0-2) % Neut # (Auto) 3400 (9591-3218) /uL Lymph # (Auto) 1400 (0143-8636) /uL Ellis # (Auto) 700 (0-900) /uL Eos # (Auto) 100 (0-450) /uL Baso # (Auto) 100 (0-100) /uL Sodium 137 (137-145) mmol/L Potassium 3.9 (3.4-5.1) mmol/L Chloride 103 (98-107) mmol/L Carbon Dioxide 26 (22-32) mmol/L BUN 17 (7-17) mg/dL Creatinine 0.76 (0.52-1.04) mg/dL Estimated GFR > 60 (>60) mL/min BUN/Creatinine Ratio 22.4 H (6-22) Glucose 109 (80-110) mg/dL Calcium 9.3 (8.4-10.2) mg/dL Total Bilirubin 0.7 (0.2-1.3) mg/dL AST 23 (14-36) IU/L ALT 19 (<35) IU/L Alkaline Phosphatase 69 (38-126) U/L Total Creatine Kinase 90 (30-135) U/L Troponin I < 0.012 (0.01-0.034) ng/mL Total Protein 7.2 (6.3-8.2) g/dL Albumin 4.3 (3.5-5.0) g/dL Globulin 2.9 (1.7-4.1) g/dL Albumin/Globulin Ratio 1.5 (1.0-2.8) Lipase 122 (23-300) U/L Urine RBC None seen (0-5/HPF) Urine WBC None seen (0-5/HPF) Ur Squamous Epith Cells 5-10 /hpf H (0-5/HPF) Amorphous Sediment 1+ Urine Bacteria None seen (None) Ur Culture Indicated? Cult not indicated Vol Urine Centrifuged 10ml (spun) SARS-CoV-2 (PCR) Negative (Negative) Influenza A (RT-PCR) Flu a negative (NEGATIVE) Influenza B (RT-PCR) Flu b negative (NEGATIVE) RSV (PCR) Negative (Negative) Urine Dip Bedside Urine Glucose Negative Bedside Urine Bilirubin - Negative Bedside Urine Ketone +/- 5 Urine Specific Jerome 1.020 Bedside Urine Occult Blood - Negative Bedside Urine pH 6.0 Bedside Urine Protein +/- 15 Bedside Urine Urobilinogen - Negative Bedside Urine Nitrite - Negative Bedside Urine Leukocytes - Negative Esterase Imaging Data Chest x-ray: Radiologist Impression: [facility] [address] [place] [id number] XRay Report Signed Patient: Ra Renee MR#: [id number] : 1940 Acct:[id number] Age/Sex: 85 / F Date of Service: 03/08/25 Loc: ED Accession Number: [id number] Procedure: XR chest 1V Ordering Provider: Reinaldo Riggs D.O. PROCEDURE: XR CHEST 1V INDICATIONS: Weakness TECHNIQUE: One view of the chest was acquired. COMPARISON: [facility], , XR CHEST 1V, 12/19/2024, 6:30. FINDINGS: Surgical changes and devices: Left-sided axillary and breast surgical clips. Lungs and pleura: Lungs are clear. No pleural effusions or pneumothorax. Mediastinum: Mediastinal contours appear normal. Heart size is normal. Bones and chest wall: No suspicious bony lesions. Overlying soft tissues appear unremarkable. IMPRESSION: Presumed prior left breast carcinoma surgery. No evidence of metastatic disease or other source of reported weakness. ECG Data Interpretation: EKG interpreted ED physician sinus 75 beats per minute QTC [address] changes no STEMI MDM Narrative Medical decision making narrative: 85-year-old female with a history of benign essential tremor, hyperlipidemia, anxiety, depression, recurrent UTIs presenting for generalized weakness according to the patient this has been ongoing persistent and worsening over the past year after has been unfortunately past. States that she believes her depression was getting worse her primary care doctor changed these medications approximately 3 weeks ago. She states that she just feels overall tired weak but denies any suicidal or homicidal ideation. Patient had lab work imaging EKG urinalysis performed here in the emergency department. Urinalysis not consistent with acute urinary tract infection, EKG nonischemic in nature, chest x-ray without any acute cardiopulmonary abnormality, lab work unremarkable, I did have a discussion with the patient's daughter who is caring for the patient currently, she states that they are in the process of attempting placement with her primary care doctor due to the fact that patient has been having this gradual decline in strength. She states that she was previously on mirtazapine but was recently taken off and is now on only citalopram, she also states that she was prescribed Zyprexa but has not started this. They will be sent home with strict return precautions and told to follow up with the primary care they understand and agree with this plan Discharge Plan Departure Patient Disposition: Home Clinical Impression: Generalized weakness Activity Restrictions/Additional Instructions: Please follow up with your primary care doctor Please read the discharge instructions sheet carefully and bring all papers to all doctor follow-up visits, as it may contain information that your doctor may want to see. Disease processes change and evolve, if your symptoms worsen or if you develop any new symptoms that are concerning to you please return for evaluation. Your evaluation today does not show any evidence of any life-threatening/serious illnesses requiring admission to the hospital or surgery. Please follow-up with your doctor for re-evaluation in approximately 1 day. Seek immediate medical attention for any worrisome symptoms. *If you do not have a primary care provider please contact the [facility] Resource line at [phone]. They will ask some questions about your medical history and help get you set up with a doctor in the community. Prescriptions: No Action olanzapine 2.5 mg tablet 2.5 mg PO BEDTIME Qty: 30 1RF estradiol [Estrace] 0.01 % (0.1 mg/gram) cream 0.5 g vaginal 2XW Qty: 42.5 3RF Rx Instructions: twice a week until surgery propranolol 10 mg tablet 10 mg PO DAILY Qty: 90 3RF citalopram 10 mg tablet 10 mg PO DAILY Qty: 90 3RF Referrals: Nathan Santiago MD [Primary Care Provider] - Stand Alone Forms: Patient Portal/API/Survey
--- NOTE | 2025-03-08 10:52 | DI.RAD.S_ITS ---
PROCEDURE: XR CHEST 1V INDICATIONS: Weakness TECHNIQUE: One view of the chest was acquired. COMPARISON: [facility], CR, XR CHEST 1V, 12/19/2024, 6:30. FINDINGS: Surgical changes and devices: Left-sided axillary and breast surgical clips. Lungs and pleura: Lungs are clear. No pleural effusions or pneumothorax. Mediastinum: Mediastinal contours appear normal. Heart size is normal. Bones and chest wall: No suspicious bony lesions. Overlying soft tissues appear unremarkable. IMPRESSION: Presumed prior left breast carcinoma surgery. No evidence of metastatic disease or other source of reported weakness. Dictated by: Michel Munoz M.D. on 03/08/2025 at 11:01 Approved by: Michel Munoz M.D. on 03/08/2025 at 11:02
--- NOTE | 2025-03-08 10:52 | EKG_ITS ---
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
[2025-03-08 11:22] LABS: Add Manual Diff / Slide Review NO; Basophils Absolute Auto 100 /uL (0-100); Basophils Percent Auto 1.3 % (0-2); Eosinophils Absolute Auto 100 /uL (0-450); Eosinophils Percent Auto 1.7 % (2-4); Hematocrit 39.9 % (36-46); Hemoglobin 13.7 g/dL (12.0-16.0); Lymphocytes Absolute Auto 1400 /uL (1100-4500); Mean Corpuscular HGB Conc 34.4 % (30-36); Mean Corpuscular Hemoglobin 29.9 PG (26-34); Mean Corpuscular Volume 86.9 fL (80-100); Monocytes Absolute Auto 700 /uL (0-900); Monocytes Percent Auto 12.9 % (3-14); Neutrophils Absolute Auto 3400 /uL (1500-7000); Neutrophils Percent Auto 59.1 % (50-75); Platelet Count 280 X10^3/uL (150-400); Red Blood Cell Count 4.58 X10^6/uL (4.0-5.2); Red Cell Distribution Width 13.1 % (11.6-14.8); White Blood Cell Count 5.7 X10^3/uL (4.5-11.0)
[2025-03-08 11:34] LABS: Alanine Aminotransferase 19 IU/L (<35); Albumin 4.3 g/dL (3.5-5.0); Albumin Globulin Ratio 1.5 (1.0-2.8); Alkaline Phosphatase 69 U/L (38-126); Aspartate Aminotransferase 23 IU/L (14-36); BUN Creatinine Ratio 22.4 (6-22); Bilirubin Total 0.7 mg/dL (0.2-1.3); Blood Urea Nitrogen 17 mg/dL (7-17); Calcium 9.3 mg/dL (8.4-10.2); Carbon Dioxide 26 mmol/L (22-32); Chloride 103 mmol/L (98-107); Creatine Kinase 90 U/L (30-135); Estimated Glomerular Filt Rate > 60 mL/min (>60); Globulin 2.9 g/dL (1.7-4.1); Glucose 109 mg/dL (80-110); HEMOLYSIS < 15 (0-50); Lipase 122 U/L (23-300); Potassium 3.9 mmol/L (3.4-5.1); Sodium 137 mmol/L (137-145); Total Protein 7.2 g/dL (6.3-8.2)
[2025-03-08] MEDS: SODIUM CHLORIDE 0.9% 1,000 ML 500 ML IV (11:36)
[2025-03-08] MEDS: ACETAMINOPHEN 325 MG TABLET 650 MG PO (11:41)
[2025-03-08 11:46] LABS: Troponin I < 0.012 ng/mL (0.01-0.034)
[2025-03-08] MEDS: ONDANSETRON 4 MG/2 ML INJ IV (12:28)
[2025-03-08 12:53] LABS: Influenza A - CEPHEID Flu A NEGATIVE (NEGATIVE); Influenza B - CEPHEID Flu B NEGATIVE (NEGATIVE); Respiratory Syncytial Virus Negative (Negative)
[2025-03-08 12:54] LABS: COVID-19 CEPHEID 4-PLEX PCR Negative (Negative)
== END 2025-03-08 13:50 | disposition home or self-care (01) ==
PROVIDERS: Emergency Provider Student in an Organized Health Care Education/Training Program; Family Provider Internal Medicine; PCP Internal Medicine
DX: R53.1 Weakness (principal); R35.0 Frequency of micturition
CPT/HCPCS: 0241U; 36415; 71045; 80053; 81003; 81015; 82550; 83690; 84484; 85025; 93005; 93010; 96361; 96374; 99284; J2405

== ENCOUNTER 2025-03-11 07:09 | Emergency (ER) | payer MEDICARE, OTHER, SELFPAY ==
[2023-03-18 16:01] VITALS: BMI 23.2
[2025-03-11] VITALS (23 sets, daily range): BP systolic 127–187; BP diastolic 59–77; PULSE 65–96; RESP 15–21; TEMP 36.6; O2SAT 97–99; BMI 20.5
--- NOTE | 2025-03-11 07:11 | ED_ITS ---
HPI - General Adult <Gardenia Bradshaw DO - Last Filed: 03/12/25 18:43> General Chief complaint: Weakness Stated complaint: Failure to Thrive Time Seen by Provider: 03/11/25 07:11 Source: patient, EMS, RN notes reviewed and old records reviewed Mode of arrival: EMS Limitations: no limitations History of Present Illness HPI narrative: 85-year-old female history of hypertension, depression, dyslipidemia status post hysterectomy, cystocele and rectocele repair and benign essential tremor. 85-year-old female presents with complaint of generalized weakness that daughter can not take care of her. She was here several days ago denies any chest pain, denies shortness of breath. She denies any fevers, no cold cough or congestion symptoms. She denies any nausea or vomiting. Denies any new abdominal back or flank pain. States she has been constipated but had a bowel movement yesterday. She denies any black or bloody stools. She notes she was maybe had some urinary symptoms. Does note that she often has urinary incontinence. Patient describes generalized weakness not able to ambulate states she was walking to the bathroom with in her own house but states unable to today. She notes she has recently changed medications was on mirtazapine but that stopped and she was prescribed Zyprexa. Per patient report sounds like she was started this. She denies any thoughts of harming or killing herself but states she feels like she was probably moving towards dying. She notes allergies to sulfa. Related Data Previous Rx's Medication Instructions Recorded estradiol 0.01% (0.1 mg/gram) 0.5 g vaginal 2XW #42.5 grams 12/16/22 vaginal cream (Estrace) propranolol 10 mg tablet 10 mg PO DAILY tremor #90 tabs 01/01/25 citalopram 10 mg tablet 10 mg PO DAILY #90 tabs 02/19/25 olanzapine 2.5 mg tablet 2.5 mg PO BEDTIME #30 tabs 03/05/25 Allergies Allergy/AdvReac Type Severity Reaction Status Date / Time Sulfa (Sulfonamide Allergy Mild red face Verified 02/19/25 16:24 Antibiotics) Review of Systems <Gardenia Bradshaw DO - Last Filed: 03/12/25 18:43> Review of Systems ROS Unobtainable: All systems reviewed & are unremarkable except as noted in HPI and below Patient History <Gardenia Bradshaw DO - Last Filed: 03/12/25 18:43> Medical History Do not resuscitate Slow transit constipation Benign essential tremor History of breast cancer Mixed hyperlipidemia Menopausal syndrome Depression, major, recurrent Recurrent UTI Surgical History S/P lumpectomy of breast Social History details: (Chuck) 02/2024, 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 Slow to speak, flat affect. HEENT: Atraumatic, pupils are equal round reactive to light, extraocular movements are intact, nares are clear, TMs are clear with no fluid, there is no conjunctival pallor. Throat is clear without any exudates, erythema, tonsillar enlargement or uvular deviation, no facial droop HEART: Regular rate and rhythm without murmur, clicks, rubs. No carotid bruits, pulses are equal in upper and lower extremities LUNGS:Lungs clear to auscultation, no wheezes, rales, crackles, chest moves symmetrically ABD:bowel sounds normal, soft, non-tender, no guarding, rebound, rigidity, no masses noted, no hepatosplenomegaly :No CVA tenderness MSCL: Non-tender, no muscle atrophy, muscles strength 5/5 upper and lower extremities, full range of motion. NEURO:CN 2-12 intact, sensation normal, reflexes 2/4 upper and lower extremities. No dysarthria or aphasia. SKIN: No rash, erythema or other skin changes noted Initial Vital Signs Initial Vital Signs: Vital Signs Pulse Rate 79 03/11/25 07:12 Pulse Oximetry 97 03/11/25 07:12 <Reinaldo Riggs DO - Last Filed: 03/12/25 06:02> Initial Vital Signs Initial Vital Signs: Vital Signs Pulse Rate 79 03/11/25 07:12 Pulse Oximetry 97 03/11/25 07:12 Course <Gardenia Bradshaw, DO - Last Filed: 03/12/25 18:43> Orders Ordered: Discontinued Medications Acetaminophen (Acetaminophen 325 Mg Tablet) 650 mg PO NOW ONE Stop: 03/11/25 09:00 Last Admin: 03/11/25 09:09 Dose: 650 mg Documented By: SPF Acetaminophen (Acetaminophen 325 Mg Tablet) 650 mg PO NOW ONE Stop: 03/12/25 07:27 Last Admin: 03/12/25 08:05 Dose: 650 mg Documented By: SPF Acetaminophen (Acetaminophen 325 Mg Tablet) 650 mg PO NOW ONE Stop: 03/12/25 14:08 Last Admin: 03/12/25 14:19 Dose: 650 mg Documented By: SPF Citalopram Hydrobromide (Citalopram 10 Mg Tablet) 10 mg PO DAILY [facility] Last Admin: 03/12/25 10:28 Dose: Not Given Documented By: SPF Diphenhydramine HCl (Diphenhydramine 50 Mg/Ml Vial) 25 mg IV NOW ONE Stop: 03/11/25 12:54 Last Admin: 03/11/25 13:10 Dose: Not Given Documented By: SPF Sodium Chloride (Normal Saline 0.9%) 1,000 mls @ 1,000 mls/hr IV BOLUS ONE Stop: 03/11/25 08:21 Last Infusion: 03/11/25 08:30 Dose: Infused Documented By: Admin: 03/11/25 07:30 Dose: 1,000 mls/hr Documented By: CTS Lorazepam (Lorazepam 2 Mg/Ml Inj) 1 mg IM NOW ONE Stop: 03/11/25 12:19 Last Admin: 03/11/25 12:20 Dose: Not Given Documented By: CTS Lorazepam (Lorazepam 0.5 Mg Tablet) 1 mg PO NOW ONE Stop: 03/11/25 12:21 Last Admin: 03/11/25 12:26 Dose: 1 mg Documented By: CTS Morphine Sulfate (Morphine 2 Mg/Ml Inj) 2 mg IV NOW ONE Stop: 03/11/25 12:31 Last Admin: 03/11/25 12:35 Dose: 2 mg Documented By: SPF Olanzapine (Olanzapine 2.5 Mg Tablet) 2.5 mg PO BEDTIME [facility] Last Admin: 03/11/25 21:25 Dose: 2.5 mg Documented By: KAYLEEN Ondansetron HCl (Ondansetron 4 Mg/2 Ml Inj) 4 mg IV NOW ONE Stop: 03/11/25 10:43 Last Admin: 03/11/25 10:48 Dose: 4 mg Documented By: CARLOS Propranolol HCl (Propranolol 10 Mg Tablet) 10 mg PO DAILY [facility] Last Admin: 03/12/25 14:06 Dose: Not Given Documented By: CARLOS Vital Signs Vital signs: Vital Signs - 8 hr 03/12/25 11:00 03/12/25 11:30 03/12/25 12:00 Pulse Rate 63 74 72 Respiratory Rate 17 23 18 Blood Pressure Pulse Oximetry 98 98 98 Oxygen Delivery Method 03/12/25 12:00 03/12/25 12:30 03/12/25 13:00 Pulse Rate 72 61 Respiratory Rate 17 20 Blood Pressure 136/64 Pulse Oximetry 99 98 Oxygen Delivery Method 03/12/25 14:33 Pulse Rate 60 Respiratory Rate 16 Blood Pressure Pulse Oximetry 98 Oxygen Delivery Method Room Air <Reinaldo Riggs DO - Last Filed: 03/12/25 06:02> Orders Ordered: Discontinued Medications Acetaminophen (Acetaminophen 325 Mg Tablet) 650 mg PO NOW ONE Stop: 03/11/25 09:00 Last Admin: 03/11/25 09:09 Dose: 650 mg Documented By: CARLOS Acetaminophen (Acetaminophen 325 Mg Tablet) 650 mg PO NOW ONE Stop: 03/12/25 07:27 Last Admin: 03/12/25 08:05 Dose: 650 mg Documented By: CARLOS Acetaminophen (Acetaminophen 325 Mg Tablet) 650 mg PO NOW ONE Stop: 03/12/25 14:08 Last Admin: 03/12/25 14:19 Dose: 650 mg Documented By: CARLOS Citalopram Hydrobromide (Citalopram 10 Mg Tablet) 10 mg PO DAILY [facility] Last Admin: 03/12/25 10:28 Dose: Not Given Documented By: CARLOS Diphenhydramine HCl (Diphenhydramine 50 Mg/Ml Vial) 25 mg IV NOW ONE Stop: 03/11/25 12:54 Last Admin: 03/11/25 13:10 Dose: Not Given Documented By: CARLOS Sodium Chloride (Normal Saline 0.9%) 1,000 mls @ 1,000 mls/hr IV BOLUS ONE Stop: 03/11/25 08:21 Last Infusion: 03/11/25 08:30 Dose: Infused Documented By: Admin: 03/11/25 07:30 Dose: 1,000 mls/hr Documented By: NAHEED Lorazepam (Lorazepam 2 Mg/Ml Inj) 1 mg IM NOW ONE Stop: 03/11/25 12:19 Last Admin: 03/11/25 12:20 Dose: Not Given Documented By: CTS Lorazepam (Lorazepam 0.5 Mg Tablet) 1 mg PO NOW ONE Stop: 03/11/25 12:21 Last Admin: 03/11/25 12:26 Dose: 1 mg Documented By: CTS Morphine Sulfate (Morphine 2 Mg/Ml Inj) 2 mg IV NOW ONE Stop: 03/11/25 12:31 Last Admin: 03/11/25 12:35 Dose: 2 mg Documented By: SPF Olanzapine (Olanzapine 2.5 Mg Tablet) 2.5 mg PO BEDTIME [facility] Last Admin: 03/11/25 21:25 Dose: 2.5 mg Documented By: KAYLEEN Ondansetron HCl (Ondansetron 4 Mg/2 Ml Inj) 4 mg IV NOW ONE Stop: 03/11/25 10:43 Last Admin: 03/11/25 10:48 Dose: 4 mg Documented By: SPF Propranolol HCl (Propranolol 10 Mg Tablet) 10 mg PO DAILY [facility] Last Admin: 03/12/25 14:06 Dose: Not Given Documented By: SPF Vital Signs Vital signs: Vital Signs - 8 hr 03/12/25 11:00 03/12/25 11:30 03/12/25 12:00 Pulse Rate 63 74 72 Respiratory Rate 17 23 18 Blood Pressure Pulse Oximetry 98 98 98 Oxygen Delivery Method 03/12/25 12:00 03/12/25 12:30 03/12/25 13:00 Pulse Rate 72 61 Respiratory Rate 17 20 Blood Pressure 136/64 Pulse Oximetry 99 98 Oxygen Delivery Method 03/12/25 14:33 Pulse Rate 60 Respiratory Rate 16 Blood Pressure Pulse Oximetry 98 Oxygen Delivery Method Room Air Medical Decision Making <Gardenia Bradshaw, - Last Filed: 03/12/25 18:43> Lab Data 03/11/25 07:30 03/11/25 07:30 Labs: Lab Results 03/11/25 Range/Units 07:30 WBC 6.6 (4.5-11.0) X10^3/uL RBC 4.60 (4.0-5.2) X10^6/uL Hgb 13.9 (12.0-16.0) g/dL Hct 39.9 (36-46) % MCV 86.8 (80-100) fL MCH 30.2 (26-34) PG MCHC 34.8 (30-36) % RDW 13.4 (11.6-14.8) % Plt Count 285 (150-400) X10^3/uL Neut % (Auto) 58.9 (50-75) % Lymph % (Auto) 25.5 (25-40) % [place] % (Auto) 12.1 (3-14) % Eos % (Auto) 2.5 (2-4) % Baso % (Auto) 1.0 (0-2) % Neut # (Auto) 3900 (6788-6791) /uL Lymph # (Auto) 1700 (9539-2834) /uL [place] # (Auto) 800 (0-900) /uL Eos # (Auto) 200 (0-450) /uL Baso # (Auto) 100 (0-100) /uL Sodium 135 L (137-145) mmol/L Potassium 3.9 (3.4-5.1) mmol/L Chloride 102 (98-107) mmol/L Carbon Dioxide 25 (22-32) mmol/L BUN 15 (7-17) mg/dL Creatinine 0.71 (0.52-1.04) mg/dL Estimated GFR > 60 (>60) mL/min BUN/Creatinine Ratio 21.1 (6-22) Glucose 106 (80-110) mg/dL Calcium 9.2 (8.4-10.2) mg/dL Total Bilirubin 0.8 (0.2-1.3) mg/dL AST 34 (14-36) IU/L ALT 25 (<35) IU/L Alkaline Phosphatase 71 (38-126) U/L Total Creatine Kinase 216 H (30-135) U/L Troponin I < 0.012 (0.01-0.034) ng/mL Total Protein 7.2 (6.3-8.2) g/dL Albumin 4.3 (3.5-5.0) g/dL Globulin 2.9 (1.7-4.1) g/dL Albumin/Globulin Ratio 1.5 (1.0-2.8) Lipase 108 (23-300) U/L TSH 2.42 (0.47-4.68) uIU/mL Urine Dip Bedside Urine Glucose Negative Bedside Urine Bilirubin - Negative Bedside Urine Ketone + 15 Urine Specific [place] 1.015 Bedside Urine Occult Blood - Negative Bedside Urine pH 6.5 Bedside Urine Protein - Negative Bedside Urine Urobilinogen - Negative Bedside Urine Nitrite - Negative Bedside Urine Leukocytes - Negative Esterase Point of care testing: Urine Dip Bedside Urine Glucose Negative Bedside Urine Bilirubin - Negative Bedside Urine Ketone + 15 Urine Specific [place] 1.015 Bedside Urine Occult Blood - Negative Bedside Urine pH 6.5 Bedside Urine Protein - Negative Bedside Urine Urobilinogen - Negative Bedside Urine Nitrite - Negative Bedside Urine Leukocytes - Negative Esterase ECG Data Attestation: I personally reviewed and interpreted this ECG as follows: Prior ECG tracings: available for review Interpretation: Sinus rhythm rate of 76, DC 200 QTC of 92 QTC 456, no acute ST elevation or depression, nonspecific change. Patient has prior from 03/08/2025 appears similar to prior several V4. [facility] Narrative Medical decision making narrative: 85-year-old female presents with complaint of generalized weakness, patient has no other complaints. Patient has had gradually decreasing strength also history of depression and her physician has been managing her medications recently. Patient refused 4plex covid/flu/rsv swab. EKG appears similar to prior Labs show normal white count hemoglobin and platelets. Sodium is 135 electrolytes, creatinine, glucose and LFTs are appropriate total CK is 216, troponin Patient had TSH that was normal on 01/01/2025. Repeat TSH is 2.42. Urine point of care is negative Chest x-ray shows no acute change. MR with the and without contrast brain is negative. Patient use bedside commode with the nursing she was able to stand and pivot. Spoke with the patient and her daughter who is at bedside currently and assisting her with caregiving. Daughter states she was become increasingly weak notes a slow progression over time. She feels there maybe a component of depression to it she notes that the patient's has been 1 year anniversary of his is upcoming shortly. Patient and daughter note they need either additional assistance at home or even possibly placement. Patient's preferences home health care. Daughter notes that she feels like patient might require more intensive assistance then home health care can provide. They would like to meet with the INTERMEDIATE TEACHER. Dr. Santiago, hospitalist as patient's primary care physician as well asked if we can obtain MR brain with and without contrast. She was had head CT but he would like to rule out any potential lesions. INTERMEDIATE TEACHER meet with the patient and daughter. Discussed home health care versus facility. [facility] is reviewing for possible placement tomorrow. Patient would be self pay but they are agreeable. Spoke with Dr. Santiago and daughter we will give patient her oral Zyprexa dose this evening she has not had it before but was prescribed by her primary care physician Dr. Santiago in the last 1-2 weeks. Daughter will return in the morning. Patient signed out Dr. Riggs for overnight. Dr. Riggs 1800: Patient was signed out to me by Dr. Bradshaw, patient presenting for persistent generalized weakness and increased depression, patient was seen by me previously for the same, was instructed to follow up outpatient with her primary care doctor however due to persistent symptoms presented back to the emergency department, there are no acute findings on her workup here in the emergency department, however daughter unable to care for patient at home, she does not normally live with the patient therefore patient is in the process of being transferred to [facility] for placement. Patient was given oral dose of Zyprexa today. We will continue to monitor. 03.12.25 @ 0120: Patient fell out of bed, patient was attempting to get out of hospital bed here in the ED, she was immediately evaluated, on exam patient with hematoma to the left christian/forehead, also some mild tenderness to palpation of the left lateral chest but no gross deformities patient is moving all 4 extremities spontaneously, she was able to stand and bear weight with assistance at bedside. She has no midline tenderness to palpation of the cervical spine. Will order CT head neck and chest to rule out any traumatic injuries 0415: Received a preliminary read of patient's CT of the head via of Kasumi-sou rads, the impression is showing a possible small subarachnoid hemorrhage in the right frontal lobe possible artifactual, however in-house radiologist read CT scan as negative, given discrepancy of possible subarachnoid hemorrhage we will reach out to Neurosurgery at [facility] for further recommendations, patient was re- evaluated she is moving all 4 extremities no focal deficits. 0430: Discussed case with [facility] transfer center, states we will reach out to Neurosurgery wants they receive scans 0511: Discussed case with Neurosurgery at [facility] Dr. Gimenez, who personally reviewed the images, believes that the real radiologist read is more likely artifact/over-read, states no need for repeat imaging would support the initial read by in-house radiologist. No need for interventions no need for transfer. 0700: Patient was signed out to Dr. Bradshaw, patient pending PT evaluation and possible transfer to [facility] 03/12/25 Dr. Bradshaw: Patient signed out to myself by Dr. Riggs. Reviewed events from overnight, imaging and consultation with no surgery as well as imaging findings. There was discrepancy between day shift read and we will bad overnight read this was reviewed with neurosurgery who states no subdural or subarachnoid. We will make sure patient's family's updated this morning. Patient has a hematoma on the left. She was awake, she was alert she was quite soft spoken this morning she states that her not continues to bother her which was bothering her yesterday as well. Patient does have a hematoma in the left. Patient is interested having breakfast this morning and would like a dose of Tylenol. Patient is formally accepted at [facility]. <Reinaldo Riggs, DO - Last Filed: 03/12/25 06:02> Lab Data Labs: Lab Results 03/11/25 Range/Units 07:30 WBC 6.6 (4.5-11.0) X10^3/uL RBC 4.60 (4.0-5.2) X10^6/uL Hgb 13.9 (12.0-16.0) g/dL Hct 39.9 (36-46) % MCV 86.8 (80-100) fL MCH 30.2 (26-34) PG MCHC 34.8 (30-36) % RDW 13.4 (11.6-14.8) % Plt Count 285 (150-400) X10^3/uL Neut % (Auto) 58.9 (50-75) % Lymph % (Auto) 25.5 (25-40) % [place] % (Auto) 12.1 (3-14) % Eos % (Auto) 2.5 (2-4) % Baso % (Auto) 1.0 (0-2) % Neut # (Auto) 3900 (3825-6027) /uL Lymph # (Auto) 1700 (9293-4942) /uL [place] # (Auto) 800 (0-900) /uL Eos # (Auto) 200 (0-450) /uL Baso # (Auto) 100 (0-100) /uL Sodium 135 L (137-145) mmol/L Potassium 3.9 (3.4-5.1) mmol/L Chloride 102 (98-107) mmol/L Carbon Dioxide 25 (22-32) mmol/L BUN 15 (7-17) mg/dL Creatinine 0.71 (0.52-1.04) mg/dL Estimated GFR > 60 (>60) mL/min BUN/Creatinine Ratio 21.1 (6-22) Glucose 106 (80-110) mg/dL Calcium 9.2 (8.4-10.2) mg/dL Total Bilirubin 0.8 (0.2-1.3) mg/dL AST 34 (14-36) IU/L ALT 25 (<35) IU/L Alkaline Phosphatase 71 (38-126) U/L Total Creatine Kinase 216 H (30-135) U/L Troponin I < 0.012 (0.01-0.034) ng/mL Total Protein 7.2 (6.3-8.2) g/dL Albumin 4.3 (3.5-5.0) g/dL Globulin 2.9 (1.7-4.1) g/dL Albumin/Globulin Ratio 1.5 (1.0-2.8) Lipase 108 (23-300) U/L TSH 2.42 (0.47-4.68) uIU/mL Urine Dip Bedside Urine Glucose Negative Bedside Urine Bilirubin - Negative Bedside Urine Ketone + 15 Urine Specific [place] 1.015 Bedside Urine Occult Blood - Negative Bedside Urine pH 6.5 Bedside Urine Protein - Negative Bedside Urine Urobilinogen - Negative Bedside Urine Nitrite - Negative Bedside Urine Leukocytes - Negative Esterase Point of care testing: Urine Dip Bedside Urine Glucose Negative Bedside Urine Bilirubin - Negative Bedside Urine Ketone + 15 Urine Specific [place] 1.015 Bedside Urine Occult Blood - Negative Bedside Urine pH 6.5 Bedside Urine Protein - Negative Bedside Urine Urobilinogen - Negative Bedside Urine Nitrite - Negative Bedside Urine Leukocytes - Negative Esterase Imaging Data CT scan - head: Radiologist's Impression: [address] [address] [address] Scan Report Signed Patient: Ra Renee MR#: [id number] : 1940 Acct:[id number] Age/Sex: 85 / F Date of Service: 03/12/25 Loc: ED Accession Number: [id number] Procedure: CT head/brain wo con Ordering Provider: Reinaldo Riggs D.O. PROCEDURE: CT HEAD/BRAIN WO CON INDICATIONS: fall, hit left christian TECHNIQUE: Noncontrast 4.5 mm thick angled axial sections acquired from the foramen magnum to the vertex, with coronal and sagittal reformats. For radiation dose reduction, the following was used: automated exposure control, adjustment of mA and/or kV according to patient size. COMPARISON: [facility], CT, CT HEAD/BRAIN WO CON, 12/19/2024, 8:08. FINDINGS: Image quality: Diagnostic. CSF spaces: Basal cisterns are patent. No extra-axial fluid collections. The ventricles are symmetric in size and shape. Brain: No intracranial bleeds or mass effect. There is cerebral volume loss, with resultant ventricular and sulcal prominence. There are periventricular and deep white matter chronic small vessel ischemic changes. There is intracranial internal carotid artery atherosclerosis. Skull and face: Calvarium and visualized facial bones appear intact, without suspicious lesions. Scalp hematoma overlying the left frontal bone, without underlying fracture. Sinuses: Visualized sinuses and mastoids are clear. IMPRESSION: Left anterior scalp hematoma without intracranial abnormality. CT - cervical spine: Radiologist's Impression: Preliminary read showing no acute traumatic injuries. CT scan - chest: Radiologist's Impression: Preliminary read showing following impression 1. Emphysematous changes. No airspace disease pneumothorax or pleural effusions. 2. Trace pericardial effusion. No evidence of mediastinal hematoma. 3. Osseous structures intact [facility] Narrative Medical decision making narrative: 85-year-old female presents with complaint of generalized weakness, patient has no other complaints. Patient has had gradually decreasing strength also history of depression and her physician has been managing her medications recently. Patient refused 4plex covid/flu/rsv swab. EKG appears similar to prior Labs show normal white count hemoglobin and platelets. Sodium is 135 electrolytes, creatinine, glucose and LFTs are appropriate total CK is 216, troponin Patient had TSH that was normal on 01/01/2025. Repeat TSH is 2.42. Urine point of care is negative Chest x-ray shows no acute change. MR with the and without contrast brain is negative. Patient use bedside commode with the nursing she was able to stand and pivot. Spoke with the patient and her daughter who is at bedside currently and assisting her with caregiving. Daughter states she was become increasingly weak notes a slow progression over time. She feels there maybe a component of depression to it she notes that the patient's has been 1 year anniversary of his is upcoming shortly. Patient and daughter note they need either additional assistance at home or even possibly placement. Patient's preferences home health care. Daughter notes that she feels like patient might require more intensive assistance then home health care can provide. They would like to meet with the INTERMEDIATE TEACHER. Dr. Santiago, hospitalist as patient's primary care physician as well asked if we can obtain MR brain with and without contrast. She was had head CT but he would like to rule out any potential lesions. INTERMEDIATE TEACHER meet with the patient and daughter. Discussed home health care versus facility. [facility] is reviewing for possible placement tomorrow. Patient would be self pay but they are agreeable. Spoke with Dr. Santiago and daughter we will give patient her oral Zyprexa dose this evening she has not had it before but was prescribed by her primary care physician Dr. Santiago in the last 1-2 weeks. Daughter will return in the morning. Patient signed out Dr. Riggs for overnight. Dr. Riggs 1800: Patient was signed out to me by Dr. Bradshaw, patient presenting for persistent generalized weakness and increased depression, patient was seen by me previously for the same, was instructed to follow up outpatient with her primary care doctor however due to persistent symptoms presented back to the emergency department, there are no acute findings on her workup here in the emergency department, however daughter unable to care for patient at home, she does not normally live with the patient therefore patient is in the process of being transferred to [facility] for placement. Patient was given oral dose of Zyprexa today. We will continue to monitor. 03.12.25 @ 0120: Patient fell out of bed, patient was attempting to get out of hospital bed here in the ED, she was immediately evaluated, on exam patient with hematoma to the left christian/forehead, also some mild tenderness to palpation of the left lateral chest but no gross deformities patient is moving all 4 extremities spontaneously, she was able to stand and bear weight with assistance at bedside. She has no midline tenderness to palpation of the cervical spine. Will order CT head neck and chest to rule out any traumatic injuries 0415: Received a preliminary read of patient's CT of the head via of real rads, the impression is showing a possible small subarachnoid hemorrhage in the right frontal lobe possible artifactual, however in-house radiologist read CT scan as negative, given discrepancy of possible subarachnoid hemorrhage we will reach out to Neurosurgery at [facility] for further recommendations, patient was re- evaluated she is moving all 4 extremities no focal deficits. 0430: Discussed case with [facility] transfer center, states we will reach out to Neurosurgery wants they receive scans 0511: Discussed case with Neurosurgery at [facility] Dr. Gimenez, who personally reviewed the images, believes that the real radiologist read is more likely artifact/over-read, states no need for repeat imaging would support the initial read by in-house radiologist. No need for interventions no need for transfer. 0700: Patient was signed out to Dr. Bradshaw, patient pending PT evaluation and possible transfer to SNF Discharge Plan Departure Patient Disposition: SNF Clinical Impression: Weakness Activity Restrictions/Additional Instructions: Follow up for recheck with your primary care physician Dr. Santiago. Follow recommendations from physical therapy. your home medications including your citalopram daily, propranolol 10 mg noon daily. You received your 1st dose of olanzapine last night at 2.5 mg nightly. This was prescribed by your primary care physician recently but had not been started. Please return for new or concerning changes. Prescriptions: No Action olanzapine 2.5 mg tablet 2.5 mg PO BEDTIME Qty: 30 1RF estradiol [Estrace] 0.01 % (0.1 mg/gram) cream 0.5 g vaginal 2XW Qty: 42.5 3RF Rx Instructions: twice a week until surgery propranolol 10 mg tablet 10 mg PO DAILY Qty: 90 3RF citalopram 10 mg tablet 10 mg PO DAILY Qty: 90 3RF SNF Discharge Plan Transfer to: [facility] I certify the postop hospital usp care is medically necessary on a continuing basis for any conditions for which he/ she received care during this hospitalization.: Yes The receiving facility has agreed to accept transfer and provide medical treatment.: Yes Diet/Activity/Treatments Diet: Regular Special Rehabilitation Services Rehab type: Physical therapy Restrictions to mobility: ambulate as tolerated.
--- NOTE | 2025-03-11 07:22 | DI.RAD.S_ITS ---
PROCEDURE: XR CHEST 1V INDICATIONS: weakness TECHNIQUE: One view of the chest was acquired. COMPARISON: [facility], CR, XR CHEST 1V, 03/08/2025, 10:48. [facility], CR, XR CHEST 1V, 12/19/2024, 6:30. FINDINGS: Surgical changes and devices: Left axillary/breast surgical clips. Lungs and pleura: Lungs are clear. No pleural effusions or pneumothorax. Mediastinum: Aortic arch calcifications. Mediastinal contours appear normal. Heart size is normal. Bones and chest wall: No suspicious bony lesions. Overlying soft tissues appear unremarkable. IMPRESSION: No acute cardiothoracic process. Dictated by: Dwain Yi M.D. on 03/11/2025 at 8:07 Approved by: Dwain Yi M.D. on 03/11/2025 at 8:08
[2025-03-11] MEDS: SODIUM CHLORIDE 0.9% 1,000 ML 1000 ML IV (07:30)
--- NOTE | 2025-03-11 07:38 | PC.NURSE ---
This TUBE DRAWER attempted to do a respiratory panel test on the patient. Patient refused and stated I just had one done the other day and I do not have a fever. I am going to refuse this. This TUBE DRAWER told the patient that it was her right to refuse but that everytime you have an emergency room visit it is likely that we will repeat test because each visit is different. Patient understood and continued to refuse. MD/RN aware.
[2025-03-11 07:48] LABS: Add Manual Diff / Slide Review NO; Basophils Absolute Auto 100 /uL (0-100); Eosinophils Absolute Auto 200 /uL (0-450); Eosinophils Percent Auto 2.5 % (2-4); Hematocrit 39.9 % (36-46); Hemoglobin 13.9 g/dL (12.0-16.0); Lymphocytes Absolute Auto 1700 /uL (1100-4500); Lymphocytes Percent Auto 25.5 % (25-40); Mean Corpuscular HGB Conc 34.8 % (30-36); Mean Corpuscular Hemoglobin 30.2 PG (26-34); Mean Corpuscular Volume 86.8 fL (80-100); Monocytes Absolute Auto 800 /uL (0-900); Monocytes Percent Auto 12.1 % (3-14); Neutrophils Absolute Auto 3900 /uL (1500-7000); Neutrophils Percent Auto 58.9 % (50-75); Platelet Count 285 X10^3/uL (150-400); Red Cell Distribution Width 13.4 % (11.6-14.8); White Blood Cell Count 6.6 X10^3/uL (4.5-11.0)
--- NOTE | 2025-03-11 07:53 | EKG_ITS ---
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
[2025-03-11 07:54] LABS: Alanine Aminotransferase 25 IU/L (<35); Albumin 4.3 g/dL (3.5-5.0); Albumin Globulin Ratio 1.5 (1.0-2.8); Alkaline Phosphatase 71 U/L (38-126); Aspartate Aminotransferase 34 IU/L (14-36); BUN Creatinine Ratio 21.1 (6-22); Bilirubin Total 0.8 mg/dL (0.2-1.3); Blood Urea Nitrogen 15 mg/dL (7-17); Calcium 9.2 mg/dL (8.4-10.2); Carbon Dioxide 25 mmol/L (22-32); Chloride 102 mmol/L (98-107); Creatine Kinase 216 U/L (30-135); Estimated Glomerular Filt Rate > 60 mL/min (>60); Globulin 2.9 g/dL (1.7-4.1); Glucose 106 mg/dL (80-110); HEMOLYSIS < 15 (0-50); Lipase 108 U/L (23-300); Potassium 3.9 mmol/L (3.4-5.1); Sodium 135 mmol/L (137-145); Total Protein 7.2 g/dL (6.3-8.2)
--- NOTE | 2025-03-11 07:58 | PC.NURSE ---
Assisted pt in getting up to bedside commode, pt able to stand and pivot to/from commode to chair and needed assistance getting up and out of bed. Pt able to reposition self in bed with encouragement. Pt requesting purewick and one was placed after pt repositioned in bed.
[2025-03-11 08:06] LABS: Troponin I < 0.012 ng/mL (0.01-0.034)
[2025-03-11 08:44] LABS: Thyroid Stimulating Hormone 2.42 uIU/mL (0.47-4.68)
[2025-03-11] MEDS: ACETAMINOPHEN 325 MG TABLET 650 MG PO (09:09)
--- NOTE | 2025-03-11 10:18 | DI.MRI.S_ITS ---
PROCEDURE: MR HEAD/BRAIN WO/W CON INDICATIONS: weakness, worsening memory TECHNIQUE: Noncontrast axial T1 spin echo, axial T2 fast spin echo, sagittal and axial FLAIR, coronal T2 fast spin echo, axial gradient echo, axial diffusion and ADC through the brain. After the administration of contrast, axial and coronal and sagittal 3D VIBE or T1 spin echo with fat saturation through the brain. COMPARISON: [facility], MR, MR HEAD/BRAIN WO/W CON, 07/29/2021, 13:00. FINDINGS: Image quality: Excellent. CSF Spaces: Basal cisterns are patent. No extra-axial fluid collections. Ventricles are normal in size and shape. Brain: No midline shift. No intracranial bleeds or masses. No abnormal intracranial enhancement. The brainstem appears normal. Diffusion-weighted images demonstrate no acute infarct. No chronic ischemic insults. Normal intravascular flow voids are present. Skull and face: Calvarial marrow is normal in signal. Orbits appear normal. Sinuses: Sinuses and mastoids appear clear. IMPRESSION: No acute ischemia. Dictated by: Cecil Ruelas M.D. on 03/11/2025 at 13:21 Approved by: Cecil Ruelas M.D. on 03/11/2025 at 13:26
[2025-03-11] MEDS: ONDANSETRON 4 MG/2 ML INJ IV (10:48)
[2025-03-11] MEDS: LORazepam 0.5 MG TABLET 1 MG PO (12:26)
[2025-03-11] MEDS: MORPHINE 2 MG/ML INJ IV (12:35)
--- NOTE | 2025-03-11 14:15 | CM.DANOTE ---
ED CARAMEL MAKER DCP Assessment Note: Pt is a 85yo female, resident of [place], is seen in the ED for weakness, recent falls. Pt lives in a house alone, her daughter has been with her the past three months - she lives in both [place] and the [place] area. Pt's Primary Care Provider is Dr. Nathan Santiago and insurance is Medicare and [employer]. Reviewed chart and discussed with multidisciplinary team pt's medical status and initial discharge needs. ED CARAMEL MAKER attempted to meet with pt but pt was with MRI then sound asleep due to medication for MRI. ED CARAMEL MAKER met with daughter/POKira Rg. Per daughter, pt has been on a dramatic decline the past few weeks, they have been in the ED multiple times due to pt weakness. It is reported that pt has had a sharp decline in appetite and mobility; pt daughter reports pt having recurrent falls in the last week and she does not feel safe with pt discharging back to her home. Pt daughter states she has a preference for [facility] and has already been discussing private pay placement with them. Per daughter, pt has no other social supports other than daughter. Pt has a hx of [employer] who would come to her house 3x/week but it was mainly for companionship, that person has since left the company. ED CARAMEL MAKER provided emotional support to pt daughter utilizing reflective listening and ED CARAMEL MAKER calls [facility] and it is reported by Denisse that there are beds available, she will have to review the referral on 03/12 but there is a chance pt can transfer to them on the same day in the afternoon. ED CARAMEL MAKER reviewed this with ED Provider, Dr. Bradshaw, who verbalized understanding, authorized a PT order to be placed for evaluation. ED CARAMEL MAKER reviewed above with pt daughter and pt RN. ED CARAMEL MAKER sent initial referral to [facility]. Plan: Awaiting PT evaluation and pt will board in the ED; anticipating discharge to SNF on 03/12 or when officially accepted. ED Staff will follow closely for coordination of discharge plans. CARLO Chatman Discharge Planning/Care Management CM Discharge Assessment Start: 03/11/25 14:13 Freq: Status: Active Protocol: Document 03/11/25 14:13 MW (Rec: 03/11/25 14:15 MW [id number]) Discharge Planning Assessment Assigned Emergency Generator Mechanic YEISON Adams DPOA/Assigned Designee Name Kira Moser, Daughter Contact Information [phone] Advance Directives? Yes Advance Directives on File No History Provided By Family Member,Medical Record Has Patient been admitted in last 30 No days? Comment Multiple ED visits Prior Living Arrangements House Household Members none Type of transporation used prior to Relies on Others admit Independent with ADL's No Is patient alert and oriented? Yes Needs Assistance With Bathing,Eating,Grooming,Meal Prep,Toileting,Managing Medications,Home Chores / Shopping Caregiver for Another No DME Already Rented / Owned FWW / Walker,Cane Patient/Family Preference [facility] Comment [facility] Barriers to Discharge No Discharge Plan [facility] Referrals Initiated None needed If patient plan is SNF: Has PASSR been Yes completed? Medicare Choice List Provided Yes Medicare choice list reviewed on family electronic tablet with SNF/HH Preference [facility] Contact Name/Phone Denisse - [phone] Has Agency SNF been contacted Yes Review Status In Process Please Provide Date Initial DC 03/11/25 Assessment Was Performed Next Review Type Continued Stay Review
--- NOTE | 2025-03-11 21:05 | PC.NURSE ---
pt refusing her night time medication stating she has never taken that medication before and didn't know what it was, attempted to explain what the medication did pt pt continued to refuse the medication
[2025-03-11] MEDS: OLANZapine 2.5 MG TABLET PO (21:25)
[2025-03-12] VITALS (29 sets, daily range): BP systolic 111–194; BP diastolic 55–88; PULSE 60–91; RESP 12–24; O2SAT 97–99; BMI 20.5
--- NOTE | 2025-03-12 01:20 | PC.NURSE ---
Patient fell out of bed around 01:20 am. No witnessed. While at nursing station a loud sound heard from nursing station. This nurse checked on pt found her layer in a slightly curled up position on her left side. Called for assistance and pt placed back in bed. At this time pt will have a CT and upon return to room will place bed alarm on hospital bed.
--- NOTE | 2025-03-12 01:23 | DI.CT.S_ITS ---
PROCEDURE: CT CHEST WO CON INDICATIONS: trauma, left sided chest pain s/p fall TECHNIQUE: Noncontrast 5 mm thick sections acquired from the pulmonary apices to the posterior costophrenic angles. 1 mm lung window, 5 mm thick coronal and sagittal and 7 mm axial MIP reformats were then acquired. For radiation dose reduction, the following was used: automated exposure control, adjustment of mA and/or kV according to patient size. COMPARISON: [facility], CR, XR CHEST 1V, 03/11/2025, 7:38. FINDINGS: Image quality: Diagnostic. Thyroid: Within normal limits. Cardiac: Heart size within normal limits. No pericardial effusion. Mild coronary artery calcifications. Aorta: Thoracic aortic diameter within normal limits. Moderate atherosclerosis. Pulmonary Artery: Main pulmonary artery diameter within normal limits. Lungs: No focal lung consolidation. Mild emphysema. Pleura: No pneumothorax or pleural effusion. Airways: The trachea and mainstem bronchi are patent. Lymph Nodes: No mediastinal, hilar, or axillary lymphadenopathy. Esophagus: Small hiatal hernia. Bones: No acute osseous abnormality. No acute, displaced rib fractures. Exaggerated thoracic kyphosis. Diffuse osseous demineralization. Upper Abdomen: Within normal limits. Soft tissues: Left axillary surgical clips. IMPRESSION: 1. No acute, displaced left rib fractures. 2. Emphysema. 3. Small hiatal hernia. Findings are concordant with the preliminary report. Dictated by: Dwain Yi M.D. on 03/12/2025 at 8:18 Approved by: Dwain Yi M.D. on 03/12/2025 at 8:22
--- NOTE | 2025-03-12 01:23 | DI.CT.S_ITS ---
PROCEDURE: CT CERVICAL SPINE WO CON INDICATIONS: fell TECHNIQUE: Noncontrast 3 mm thick sections acquired from the skull base to the T4 level. Sagittal and coronal reformats were then constructed. For radiation dose reduction, the following was used: automated exposure control, adjustment of mA and/or kV according to patient size. COMPARISON: None. FINDINGS: Image quality: Excellent. Bones: No acute fracture or dislocation. Preservation of the cervical lordosis. Mild multilevel intervertebral disc height loss. Multilevel facet and uncinate arthropathy. Mild central canal stenosis at C5-C6. Soft tissues: Prevertebral soft tissues are normal in thickness. No paravertebral hematomas. No apical pneumothoraces. Moderate aortic atherosclerosis. IMPRESSION: No acute CT abnormality of the cervical spine. Findings are concordant with the preliminary report. Dictated by: Dwain Yi M.D. on 03/12/2025 at 8:22 Approved by: Dwain Yi M.D. on 03/12/2025 at 8:25
--- NOTE | 2025-03-12 01:23 | DI.CT.S_ITS ---
PROCEDURE: CT HEAD/BRAIN WO CON INDICATIONS: fall, hit left uatsdin TECHNIQUE: Noncontrast 4.5 mm thick angled axial sections acquired from the foramen magnum to the vertex, with coronal and sagittal reformats. For radiation dose reduction, the following was used: automated exposure control, adjustment of mA and/or kV according to patient size. COMPARISON: [facility], CT, CT HEAD/BRAIN WO CON, 12/19/2024, 8:08. FINDINGS: Image quality: Diagnostic. CSF spaces: Basal cisterns are patent. No extra-axial fluid collections. The ventricles are symmetric in size and shape. Brain: No intracranial bleeds or mass effect. There is cerebral volume loss, with resultant ventricular and sulcal prominence. There are periventricular and deep white matter chronic small vessel ischemic changes. There is intracranial internal carotid artery atherosclerosis. Skull and face: Calvarium and visualized facial bones appear intact, without suspicious lesions. Scalp hematoma overlying the left frontal bone, without underlying fracture. Sinuses: Visualized sinuses and mastoids are clear. IMPRESSION: Left anterior scalp hematoma without intracranial abnormality. Dictated by: Arsalan Mario M.D. on 03/12/2025 at 2:06 Approved by: Arsalan Mario M.D. on 03/12/2025 at 2:07
--- NOTE | 2025-03-12 03:30 | PC.NURSE ---
pt waking at intervals wanting to get up, continue to remind pt that she fell earlier is now is on bedrest, then pt will state she didn't have the call light, pt is reminded that she did have the call light and had been using the call light but it was not on when she fell, pt states I got up earlier, pt is reminded again that, that is before she fell, this conversation is repeated a few times then the pt will become quiet then after leaving the room pt will lay back on the bed and rest for awhile
--- NOTE | 2025-03-12 05:00 | PC.NURSE ---
pt awake again same conversation as earlier reorientated again to events of earlier and reminded that she is on bedrest
[2025-03-12] MEDS: ACETAMINOPHEN 325 MG TABLET 650 MG PO ×2 (08:05→14:19)
--- NOTE | 2025-03-12 11:30 | PT.IIE ---
Surgical History (Last Reviewed 03/11/25 @ 07:26 by Gardenia Bradshaw DO) S/P lumpectomy of breast Medical History (Last Reviewed 03/11/25 @ 07:26 by Gardenia Bradshaw DO) Benign essential tremor Depression, major, recurrent Do not resuscitate History of breast cancer Menopausal syndrome Mixed hyperlipidemia Recurrent UTI Slow transit constipation Physical Therapy Inpatient Evaluation/Re-Eval M1 PT/OT-IP Prior Functional Status Start: 03/12/25 07:10 Freq: Status: Active Protocol: Document 03/12/25 10:18 KJ (Rec: 03/12/25 10:49 KJ Laptop) Medical Review Prior Functional Status Medical History Reviewed Yes Mobility and Gait Pt states she has been using a walker at home for only a short time, a few weeks. Social History Household Members children,none Living Arrangements House Home Equipment Front Wheel Walker Additional Social History Comment Pt lives alone in [facility] [place], however her daughter has come to stay with her recently. M2 PT-IP Current Condition Start: 03/12/25 07:10 Freq: Status: Active Protocol: Document 03/12/25 10:18 KJ (Rec: 03/12/25 10:49 KJ Laptop) Physical Therapy Current Condition Current Condition Evaluation Date 03/12/25 Treatment Diagnosis Impaired mobility, impaired balance M3 PT-IP Subjective Start: 03/12/25 07:10 Freq: Status: Active Protocol: Document 03/12/25 10:18 KJ (Rec: 03/12/25 10:49 KJ Laptop) Subjective Physical Therapy Visit Type Type Initial Evaluation Visit Start Time 09:23 Visit Stop Time 09:54 Notes Seen in ED Physical Therapy Visit Comments Patient Comments Pt fell last night trying to get oob, she is aware that she fell and has been told to stay in bed, she does not remember why she tried to get out of bed Patient Goals at this time patient wants to sleep M4 PT-IP Mobility and Gait Start: 03/12/25 07:10 Freq: Status: Active Protocol: Document 03/12/25 10:18 KJ (Rec: 03/12/25 10:49 KJ Laptop) PT-Bed Mobility Assessment Rolling Type of Rolling Roll to Right Level of Assist Minimal Assistance Supine to Sit Supine to Sit Minimal Assistance Sit to Supine Sit to Supine Moderate Assistance Scooting Scooting to Edge of Bed Minimal Assistance PT-Transfer Assessment Sit to and From Stand Sit to and from Stand Moderate Assistance Equipment Transfer Assistive Device Gait Belt,Front Wheeled Walker Transfer Ability Level of Assist Moderate Assistance Comments Mobility Comments Pt able to stand at eob x 3, loses balance in posterior direction, keeps eyes closed, flexed posture. Requires frequent verbal cuing. Gait Assessment Comments Gait Comments Able to march in place, minimal foot clearance PT-Balance Assessment Sitting Balance and Reactions Static Sitting Balance Ability Good Standing Balance and Reactions Static Standing Balance Ability Poor M5 PT-IP Objective Assessments Start: 03/12/25 07:10 Freq: Status: Active Protocol: Document 03/12/25 10:18 KJ (Rec: 03/12/25 10:49 KJ Laptop) Orientation Orientation/Cognition Comments poor vocal quality Gross Range of Motion Upper Extremity ROM Assessment Within Functional Limits Lower Extremity ROM Assessment Within Functional Limits Impairments Pt needs encouragement to achieve full knee extension bilaterally Strength Upper Extremity Strength Assessment Within Functional Limits Lower Extremity Strength Assessment Within Functional Limits Comments Strength Comments Pt demonstrates 5/5 strength in BUE, ankles, knees M6 PT-IP Treatment Start: 03/12/25 07:10 Freq: Status: Active Protocol: Document 03/12/25 10:18 KJ (Rec: 03/12/25 10:49 KJ Laptop) Physical Therapy Treatment Education Education Provided Safety M7 PT-IP Assessment and Plan Start: 03/12/25 07:10 Freq: Status: Active Protocol: Document 03/12/25 10:18 KJ (Rec: 03/12/25 10:49 KJ Laptop) PT Summary Assessment and Plan Potential Rehabilitation Potential Fair Status of Condition at Evaluation Evolving Summary Impairments Balance,Bed Mobility,Transfers ,Gait Assessment Summary Pt presents with flat affect, slow movement. Goals Bed Mobility Goal Contact Guard Assistance Transfer Goal Contact Guard Assistance Gait Goal Contact Guard Assistance Gait Distance 25 Days to Meet Goals 10 Frequency of Treatment Frequency Of Treatment Once a Day Treatment Plan Physical Therapy Treatment Plan Bed Mobility Training,Transfer Training,Gait Training, Therapeutic Exercise,Balance Retraining Other Recommendations and Next Treatment Transfers, ambulation Focus Recommendations To Nursing Amount of Assist Needed 2 Person Assist Discharge Recommendations PT Discharge Recommendations SNF Rehab Transportation Needs at Discharge Wheelchair/Cabulance
--- NOTE | 2025-03-12 12:20 | CM.SWNOTE ---
ED DIE CUT OPERATOR SNF DCP Continued: Reviewed EMR and team rounds for pt?s medical status. Per ED Provider, pt had a fall overnight from her bed but is still medically cleared after diagnostic imaging. ED DIE CUT OPERATOR spoke with Denisse at [facility], it is reported pt is accepted for private pay SNF services, they are able to accept anytime. PT Chaya was able to assess pt and they are recommending SNF Rehab via wheelchair transport. ED DIE CUT OPERATOR calls [facility], both are full for transport scheduling today. ED DIE CUT OPERATOR calls [facility], it is reported they are able to transport at 1330 to arrive at approximately [phone] at [facility]. Pt daughter, Kira, will coordinate private pay for transport. Hospital exempt PASRR and med list signed by provider; all dc clinicals sent to [facility] via secure email. Transport packet initiated with ED POOL TECHNICIAN. ED DIE CUT OPERATOR reviews this with ED provider, pt daughter, [facility] admissions and pt CHAD Peraza. Plan: Anticipating [facility] to transport pt via wheelchair transport at 1330 to [facility]. ED staff will continue to follow for coordination of discharge plans. TIANA ChatmanSW
--- NOTE | 2025-03-12 13:10 | PC.NURSE ---
assisted pt to dress for pending transfer in 30 min. cardiac leads removed. last set of vitals obtained.
--- NOTE | 2025-03-12 13:57 | PC.NURSE ---
Pt's daughter gave pt home med supply of celexa medication.
--- NOTE | 2025-03-12 14:08 | PC.NURSE ---
Pt states I cant sit up. I cant do it. I'm too weak. Pt then sits up semi fowlers position on her own stating It's impossible. I cant sit up. Pt able to stand with PT and RN minimum assistance. Pt's daughter at bedside encourages pt to attempt to use the wheelchair when transportation to [facility] arrives.
--- NOTE | 2025-03-12 14:45 | PC.NURSE ---
PT was assisted up at bedside to change brief and into pajama pants prior to transportation. Pt's daughter took home pt's purse, medications, and clothing.
== END 2025-03-12 14:40 ==
PROVIDERS: Emergency Provider Emergency Medicine; Family Provider Internal Medicine; PCP Internal Medicine
DX: R53.1 Weakness (principal); S00.83XA Contusion of other part of head, initial encounter; I10 Essential (primary) hypertension; R32 Unspecified urinary incontinence; W06.XXXA Fall from bed, initial encounter; Y92.230 Patient room in hospital as the place of occurrence of the external cause
CPT/HCPCS: 36415; 70450; 70553; 71045; 71250; 72125; 80053; 81003; 82550; 83690; 84443; 84484; 85025; 93005; 93010; 96361; 96374; 96375; 97162; 99284; J1200; J2270; J2405